=== PATIENT | female | born 1970 | race Caucasian/White ===

== ENCOUNTER → 2019-08-06 14:12 | Outpatient (CLI) | payer OTHER, SELFPAY ==
--- NOTE | ~2019-08-06 | CT_ITS ---
EXAMINATION: CT abdomen pelvis w con EXAM DATE: 08/06/2019 15:40 INDICATION: Low abdominal pain, alternating bowel habits. Periumbilical pain. Hysterectomy, appendect cuauhtemoc, cholecystectomy, gastric sleeve. TECHNIQUE: Spiral CT of the abdomen and pelvis was performed following intravenous injection of 100 m L Omnipaque 350. Axial, coronal and sagittal images were reviewed. The dose-length product (DLP) fo r this examination was 689.25 mGy-cm. The exposure was tailored according to patient size (auto mA e xposure control), and iterative reconstruction (ASIR) was used as additional dose reduction technique . Comparison is made to prior examination from 05/07/2019. FINDINGS: The liver, spleen, adrenal glands and pancreas are unremarkable. Gallbladder is unremarkab le. Portal and splenic veins are patent. Kidneys enhance symmetrically. There is no hydronephrosi s. The uterus is not identified and has likely been surgically resected. The bladder is unremarkab le. There is no retroperitoneal or pelvic lymphadenopathy. There are surgical changes consistent with appendectomy. There are surgical changes consistent with gastric sleeve procedure. There is expected amount of colonic stool. No free intraperitoneal gas. The heart is normal in size. There are no pericardial or pleural effusions. The lung bases are u nremarkable. The bones are unremarkable. IMPRESSION: 1. No acute intra-abdominal findings. 2. Surgical changes. Reviewed, dictated and finalized at location A. CARRIER TECHNICIAN
--- NOTE | ~2019-08-06 | US_ITS ---
US thyroid INDICATION: Thyroid enlargement TECHNIQUE: Real-time sonographic images of the thyroid gland were obtained. COMPARISON: No prior studies for comparison. FINDINGS: The right thyroid lobe measures 3.2 x 1.1 x 1.1 cm. The left thyroid lobe measures 2.7 x 1 x 0.9 cm. There is normal echotexture and echogenicity throughout the thyroid gland. No discrete nod ules identified. Normal vascular flow is present. IMPRESSION: 1. Mildly atrophic thyroid gland without discrete mass. Reviewed, dictated and finalized at location B. HIC USER INTERFACE DESIGNER
== END ==
PROVIDERS: Visit Provider Nurse Practitioner
DX: E04.9 Nontoxic goiter, unspecified (principal)
CPT/HCPCS: 74177; 76536; Q9967

== ENCOUNTER → 2019-08-26 15:14 | Outpatient (CLI) | payer OTHER, SELFPAY ==
--- NOTE | ~2019-08-26 | US_ITS ---
EXAMINATION: US soft tissue head and neck INDICATION: Localized swelling, mass, and lump of the right neck TECHNIQUE: Targeted ultrasound of the right neck was performed. COMPARISON: None FINDINGS: There are multiple benign-appearing lymph nodes of the right neck in the area of palpable c oncern. No suspicious cystic or solid mass is identified. IMPRESSION: 1. Benign-appearing right neck lymph nodes without suspicious or solid mass identified. Reviewed, dictated and finalized at location B. IMPRESSION: 1. Benign-appearing right neck lymph nodes without suspicious or solid mass kayce ntified.
== END ==
PROVIDERS: Visit Provider Family Medicine
DX: R22.1 Localized swelling, mass and lump, neck (principal)
CPT/HCPCS: 76536

== ENCOUNTER 2019-10-13 15:02 | Outpatient (CLI) | payer OTHER, MEDICARE, SELFPAY | END 2019-10-13 15:03 | disposition home or self-care (01) | LOC: ANHIMG 10-31 15:03 | PROVIDERS: PCP Family Medicine; Visit Provider Family Medicine | DX: Z53.8 Procedure and treatment not carried out for other reasons (principal) | CPT/HCPCS: 36415 ==

== ENCOUNTER 2019-10-17 02:07 | Emergency (ER) | payer MEDICARE, OTHER, SELFPAY ==
--- NOTE | ~2019-10-17 | CT_ITS ---
EXAMINATION: CTA chest PE protocol DATE: 10/17/2019 05:15 INDICATION: Chest pain. TECHNIQUE: Computed tomography angiography (CTA) of the chest was performed with 100 mL Omnipaque-350 intravenous contrast timed to evaluate the pulmonary arteries. Coronal maximum intensity projection 3D-reconstructions were created by the technologist. Automated exposure control and iterative reconst ruction technique were employed. The dose-length product was 316.16 mGy-cm. COMPARISON: Chest CT 09/26/2018 FINDINGS: The lungs demonstrate mild atelectasis. No pleural effusion. The heart size is normal. No p ericardial effusion. There is no pulmonary embolus. There are surgical changes of the stomach. There are changes of cholecystectomy. There is mild thoracic spondylosis. IMPRESSION: 1. No pulmonary embolus. Reviewed, dictated and finalized at location A. IMPRESSION: 1. No pulmonary embolus.
--- NOTE | 2019-10-17 02:17 | ECG_ITS ---
Measurements Intervals [place] Rate: 89 P: 55 FL: 143 QRS: 23 QRSD: 81 T: 12 QT: 355 QTc: 432 Interpretive Statements SINUS RHYTHM NONSPECIFIC T-WAVE ABNORMALITY- ANT/INF LEADS BORDERLINE ECG Electronically Signed On 10-17-2019 16:48:50 CDT by Jamar Villasenor D.O.
[2019-10-17 03:46] LABS: Basophils Absolute Auto 0.1 K/mm3 (0.0-0.1); Basophils Percent Auto 1.2 % (0.2-1.2); Eosinophils Absolute Auto 0.3 K/mm3 (0-0.3); Eosinophils Percent Auto 5.2 % (0-4.4); Hematocrit 38.1 % (37.0-47.0); Hemoglobin 12.8 g/dL (12.0-15.0); INR 0.8; Immature Granulocyte Absolute 0.02 K/mm3 (0.00-0.031); Immature Granulocyte Percent A 0.3 % (0-0.5); Lymphocytes Absolute Auto 3.39 K/mm3 (0.9-3.2); Lymphocytes Percent Auto 56.5 % (18.3-44.2); Mean Corpuscular HGB Conc 33.6 g/dl (32-36); Mean Corpuscular Hemoglobin 29.3 pg (26-34); Mean Corpuscular Volume 87.2 fl (80-100); Mean Platelet Volume 9.7 fl (7.4-10.4); Monocytes Absolute Auto 0.6 K/mm3 (0.1-0.6); Monocytes Percent Auto 9.8 % (2.6-8.5); Neutrophils Absolute Auto 1.6 K/mm3 (1.3-6.7); Partial Thromboplastin Time 27.1 SECONDS (22.3-36.8); Platelet Count Result 281 k/mm3 (150-375); Prothrombin Time 10.8 Seconds (11.1-14.7); Red Blood Count 4.37 M/mm3 (4.2-5.4); Red Cell Distribution Width 12.4 % (11.5-14.5)
[2019-10-17 03:55] LABS: Blood Urea Nitrogen 6 mg/dL (7-17); Calcium 8.9 mg/dL (8.4-10.2); Carbon Dioxide 24 mmol/L (22-30); Chloride 108 mmol/L (98-107); Estimated Glomerular Filt Rate > 60; Glucose 123 mg/dL (65-105); Potassium 3.7 mmol/L (3.4-5.0); Sodium 139 mmol/L (137-145)
--- NOTE | 2019-10-17 03:56 | ED.CHESTPAIN ---
HPI - Chest Pain General Chief Complaint: Shortness of Breath/Dyspnea Stated Complaint: Chest pain Time Seen by Provider: 10/17/19 03:51 History of Present Illness HPI narrative: Patient is a 48-year-old female who presents ER with chest pain and some shortness of breath. Patient reports chest pain center of her chest. Mildly reproduced with palpation of the sternum. Patient reports pain started this evening. Sharp and nonradiating. No runny nose/sore throat/cough/fever. Patient has history of PE and is not on anticoagulation. Recently had a lymph node dissection of the right neck that revealed a benign lymph node pathology. No new lower extremity swelling. Related Data Allergies Allergy/AdvReac Type Severity Reaction Status Date / Time dihydroergotamine Allergy Unknown N/V Verified 09/26/18 17:56 ketorolac Allergy Unknown rash Verified 04/11/16 15:55 levofloxacin Allergy Unknown nausea, Verified 04/11/16 15:57 vomiting KETOROLAC TROMETHAMINE Allergy Severe RASH Uncoded 09/26/18 17:56 Review of Systems Review of Systems: All systems reviewed & are unremarkable except as noted in HPI and below Constitutional: Constitutional: Denies chills, Reports fatigue, Denies fever(s) and Reports weakness ENT: Denies nasal congestion and Denies sore throat Cardiovascular: Cardiovascular: Reports chest pain and Denies radiating jaw, neck or arm pain Respiratory: Respiratory: Denies cough, Reports dyspnea and Denies wheezing Gastrointestinal: Gastrointestinal: Denies abdominal pain, Denies diarrhea, Denies nausea and Denies vomiting PMFSH Past Medical History Medical History (Updated 10/17/19 @ 04:40 by Hayder Friend MD) Fibromyalgia Aki's thyroiditis Hyperlipidemia Hypothyroidism Lupus Pulmonary embolism Rheumatoid arthritis Surgical History Surgical History (Updated 10/17/19 @ 04:00 by Hayder Friend MD) History of appendectomy History of cholecystectomy History of tonsillectomy Previous back surgery Family History Family History (Updated 04/12/16 @ 10:24 by DOCTOR UNKNOWN) Mother Family history of thyroid disease Social History Social History Smoking status: Never smoker Alcohol intake: current Exam Narrative: Exam Narrative: GENERAL: Well-appearing, well-nourished, and in no acute distress. HEAD: Normocephalic, atraumatic. Neck: Supple. Scar right neck were lymph nodes dissected. Palpable seroma is nontender. CHEST: Clear to auscultation. No respiratory distress. Tender palpation over anterior chest wall centrally. HEART: Regular rate and rhythm. Normal peripheral pulses. ABDOMEN: Soft, nontender, nondistended. EXTREMITIES: Normal range of motion. No edema. SKIN: Warm, dry, no rash. NEURO: Alert and oriented x3. PSYCH: Normal mood and affect. Course Course Emergency Course: Patient informed of results. Symptoms likely related to anxiety and chest wall pain. Discharge home. MDM - Chest Pain Lab Data Labs: Labs performed during ED downtime. Normal PT and PTT. BMP normal. CBC with normal white blood cell count of 6, hemoglobin of 12.8 and hematocrit of 38.1 and a platelet count of 281,000. Imaging Data Radiologist's impression: CTA of the chest: No pulmonary embolism. ECG Data EKG #1: ECG completion date: 10/17/19 ECG completion time: 02:17 EKG Interpretation: normal rate (89), sinus rhythm, no ectopy, non-specific ST changes, normal QRS, normal QT and NL axis Discharge Plan Discharge Clinical Impression: Anterior chest wall pain Patient Disposition: Home, Self-Care Condition: Stable Instructions: Chest Wall Pain (ED) Additional Instructions: Return to the ER if he cannot keep down food or water, you have fever over 100.4 ?F, you have chest pain with activity, you have additional concerns. The CT scan of your chest did not reveal any pulmonary emboli. Take Tylenol as needed for pain. Follow-up/Referrals: Shelli,Suzanne Mckee
[2019-10-17 05:00] VITALS: BP 127/69; PULSE 77; RESP 22; O2SAT 97
--- NOTE | 2019-10-17 05:04 | PC.NURSE ---
iv removed, wnl
== END 2019-10-17 04:45 | disposition home or self-care (01) ==
PROVIDERS: Emergency Provider Emergency Medicine; PCP Family Medicine
DX: R07.89 Other chest pain (principal); M79.7 Fibromyalgia; E06.3 Autoimmune thyroiditis; E78.5 Hyperlipidemia, unspecified; E03.9 Hypothyroidism, unspecified; Z86.711 Personal history of pulmonary embolism; M06.9 Rheumatoid arthritis, unspecified; R94.31 Abnormal electrocardiogram [ECG] [EKG]
CPT/HCPCS: 36415; 71275; 80048; 85025; 85610; 85730; 93005; 99284; Q9967

== ENCOUNTER 2020-04-24 06:59 | Emergency (ER) | payer MEDICARE, BC, SELFPAY ==
[2020-04-24 07:04] VITALS: BP 143/94; PULSE 80; RESP 18; TEMP 36.8; O2SAT 96
--- NOTE | 2020-04-24 08:21 | ED.BACK ---
HPI - Back Pain/Injury General Chief Complaint: Extremity Injury, Lower Stated Complaint: covid +, lower back pain, shooting into leg Time Seen by Provider: 04/24/20 07:30 Source: patient Mode of arrival: ambulatory Limitations: no limitations History of Present Illness HPI Narrative: This patient is a 49 year old female who presents for evaluation of low back pain. She reports she was diagnosed with COVID on after having sinus congestion with cough for 1 week. She reports later that night she developed lower back pain. This pain has been constant and she reports her pain radiates to bilateral legs. She has associated nausea due to her severe pain. She takes Dilaudid 4 mg as needed 4 times a day for her fibromyalgia, lupus and RA. She last took her Dilaudid yesterday morning. She denies dysuria , urinary hesitancy or hematuria. She reports she did have an episode of vomiting and diarrhea. She denies fever or chills. Related Data Allergies Allergy/AdvReac Type Severity Reaction Status Date / Time dihydroergotamine Allergy Unknown N/V Verified 09/26/18 17:56 ketorolac Allergy Unknown rash Verified 04/11/16 15:55 levofloxacin Allergy Unknown nausea, Verified 04/11/16 15:57 vomiting KETOROLAC TROMETHAMINE Allergy Severe RASH Uncoded 09/26/18 17:56 Review of Systems Review of Systems: All systems reviewed & are unremarkable except as noted in HPI and below Constitutional: Constitutional: Denies chills and Denies fever(s) Cardiovascular: Cardiovascular: Denies chest pain Respiratory: Respiratory: Reports cough and Denies dyspnea Gastrointestinal: Gastrointestinal: Denies abdominal pain, Reports nausea and Denies vomiting Genitourinary: Genitourinary: Denies hematuria and Denies dysuria Musculoskeletal: Musculoskeletal: Reports back pain Neurologic: Denies focal weakness, Denies numbness and Denies weakness PMFSH Past Medical History Medical History Fibromyalgia Aki's thyroiditis Hyperlipidemia Hypothyroidism Lupus Pulmonary embolism Rheumatoid arthritis Surgical History Surgical History History of appendectomy History of cholecystectomy History of tonsillectomy Previous back surgery Family History Family History (Updated 04/12/16 @ 10:24 by DOCTOR UNKNOWN) Mother Family history of thyroid disease Social History Social History Smoking status: Never smoker Alcohol intake: current Exam Const: General: alert Orientation/consciousness: patient oriented x3 Other: patient walking around room, crying HENMT: Head: normocephalic and atraumatic Face and sinus: face symmetric Mouth: Yes Normal oral and palatal mucosa present, Yes lip normal, Yes oropharynx normal and Yes moist mucous membranes Throat: posterior oropharynx normal, tonsils normal and uvula midline Eyes: EOM: EOMs intact bilaterally Resp: Effort & Inspection: normal respiratory effort and no retractions Auscultation: clear to auscultation bilaterally Cardio: Rate: regular rate Rhythm: regular rhythm Heart sounds: no murmurs GI: GI Palp: Yes Soft to palpation, No Tenderness to palpation present (GI), No Guarding due to palpation present (GI) and No Rigid due to palpation Auscultation: normal bowel sounds Back/Spine/Pelvis: Back: no CVA tenderness, No mass and No warmth Skin: General skin exam: normal color Rashes: no rashes Neuro: General: patient oriented x3, moves all extremities, no meningeal signs, no focal motor deficits and CN's II-XI intact bilaterally Speech: normal speech Gait exam (Neuro): Normal gait present Extrem: General: normal to inspection Course Reevaluation(s) Reevaluation #1: PAtiient is now sitting in bed. She states she feels much better and her pain is gone. I discussed labs with patient. She has mild leukopenia likely due to coivd. Urine is negative. She has
[2020-04-24] MEDS: LACTATED RINGERS 1,000 ML 999 ML IV CONT (08:37)
[2020-04-24] MEDS: HYDROmorphone HCL INJ (*CRX) 1 MG/ML SYR 2 MG IV PUSH (08:40)
[2020-04-24] MEDS: ONDANSETRON INJ 4 MG/2 ML VIAL IV PUSH (08:41)
[2020-04-24] MEDS: PANTOPRAZOLE SODIUM IV 40 MG VIAL IV PUSH (08:41)
[2020-04-24 08:49] LABS: Basophils Percent Auto 0.3 % (0.2-1.2); Eosinophils Percent Auto 0.3 % (0-4.4); Hematocrit 41.9 % (37.0-47.0); Hemoglobin 13.8 g/dL (12.0-15.0); Immature Granulocyte Absolute 0.01 K/mm3 (0.00-0.031); Immature Granulocyte Percent A 0.3 % (0-0.5); Lymphocytes Percent Auto 33.4 % (18.3-44.2); Mean Corpuscular HGB Conc 32.9 g/dl (32-36); Mean Corpuscular Hemoglobin 29.6 pg (26-34); Mean Corpuscular Volume 89.7 fl (80-100); Mean Platelet Volume 9.6 fl (7.4-10.4); Monocytes Absolute Auto 0.6 K/mm3 (0.1-0.6); Monocytes Percent Auto 16.4 % (2.6-8.5); Neutrophils Absolute Auto 1.8 K/mm3 (1.3-6.7); Neutrophils Percent Auto 49.3 % (45.5-73.1); Platelet Count Result 181 k/mm3 (150-375); Red Blood Count 4.67 M/mm3 (4.2-5.4); Red Cell Distribution Width 13.9 % (11.5-14.5); White Blood Count 3.6 K/mm3 (4.5-10.0)
[2020-04-24 09:02] LABS: Alanine Aminotransferase 22 U/L (4-35); Albumin Level 4.8 g/dL (3.5-5.1); Alkaline Phosphatase 56 U/L (38-126); Anion Gap 9 mmol/L (8-16); Aspartate Amino Transferase 35 U/L (14-36); Bilirubin,Total 0.3 mg/dL (0.2-1.3); Blood Urea Nitrogen 12 mg/dL (7-17); Calcium 9.1 mg/dL (8.4-10.2); Carbon Dioxide 30 mmol/L (22-30); Chloride 102 mmol/L (98-107); Estimated Glomerular Filt Rate > 60; Glucose 118 mg/dL (65-105); Potassium 3.3 mmol/L (3.4-5.0); Sodium 141 mmol/L (137-145)
[2020-04-24 09:15] VITALS: BP 142/74; PULSE 75; RESP 12; O2SAT 99
[2020-04-24 09:17] LABS: Add Urine Microscopic? YES; Amorphous Sediment Urine Moderate; Appearance Urine Turbid (Clear); Bilirubin Urine Negative (Negative); Blood Urine Negative (Negative); Color Urine Yellow (Yellow); Glucose Urine UA Negative (Negative); Ketones Urine Trace mg/dL (Negative); Leukocyte Esterase Ur Negative LEU/UL (Negative); Mucus Urine Rare /lpf; Nitrate Urine Negative (Negative); Protein Urine 1+ mg/dL (Negative); Specific Grav Ur 1.025 (1.001-1.035); Urobilinogen Urine Negative mg/dL (<2.0)
[2020-04-24 10:15] VITALS: BP 137/80; PULSE 80; RESP 12; O2SAT 100
== END 2020-04-24 10:45 | disposition home or self-care (01) ==
PROVIDERS: Emergency Provider General Practice; PCP Family Medicine
DX: M54.5 Low back pain (principal); U07.1 COVID-19; M79.7 Fibromyalgia; M06.9 Rheumatoid arthritis, unspecified; E06.3 Autoimmune thyroiditis; E78.5 Hyperlipidemia, unspecified; Z86.711 Personal history of pulmonary embolism
CPT/HCPCS: 36415; 80053; 81001; 85025; 96361; 96374; 96375; 99284; C9113; J1170; J2405; J7120

== ENCOUNTER 2020-09-14 16:44 | Emergency (ER) | payer BC, MEDICARE, SELFPAY ==
--- NOTE | ~2020-09-14 | XR_ITS ---
EXAMINATION: XR chest 2V DATE: 09/14/2020 17:27 INDICATION: Midsternal chest pain. TECHNIQUE: Frontal and lateral views of the chest were obtained. COMPARISON: Chest 2 views 09/26/2018 FINDINGS: The chest demonstrates clear lungs without pneumonia, pleural effusion, or pneumothorax. Th e heart size is normal. Surgical clips in the right upper quadrant are likely from cholecystectomy. IMPRESSION: 1. No acute cardiopulmonary disease. Reviewed, dictated and finalized at location A.
--- NOTE | ~2020-09-14 | CT_ITS ---
EXAMINATION: CTA chest PE protocol DATE: 09/14/2020 23:54 INDICATION: Chest pain TECHNIQUE: Computed tomography angiography (CTA) of the chest was performed with 100 mL Omnipaque-350 intravenous contrast timed to evaluate the pulmonary arteries. Coronal maximum intensity projection 3D-reconstructions were created by the technologist. Automated exposure control and iterative reconst ruction technique were employed. Exam dose: 288.73 mGy-cm total exam DLP. COMPARISON: 09/14/2020 2 view chest, showing no acute cardiac pulmonary disease 10/17/2019 CT pulmonary scan; no pulmonary embolus was reported FINDINGS: There is diagnostic contrast enhancement of the pulmonary arteries and no evidence of pulmo nary embolism. No evidence of thoracic aortic aneurysm. Normal heart size. No hilar or mediastinal mass lesion or lymphadenopathy. No pulmonary infiltrate or consolidation or pulmonary mass lesion is evident. Normal morphology of the adrenal glands. Status post cholecystectomy. Postoperative changes of the stomach. No suspicious osteolytic or osteoblastic lesions. There are degenerative changes of the thoracic and lumbar spine. IMPRESSION: No evidence of pulmonary embolism Reviewed, dictated and finalized at Location A. Reviewed, dictated and finalized at location A.
--- NOTE | 2020-09-14 16:48 | ECG_ITS ---
Measurements Intervals [place] Rate: 55 P: 60 MD: 159 QRS: 32 QRSD: 87 T: 49 QT: 419 QTc: 402 Interpretive Statements SINUS BRADYCARDIA NONSPECIFIC T-WAVE ABNORMALITY- DIFFUSE LEADS BORDERLINE ECG Electronically Signed On 09-14-2020 16:58:27 CDT by Jamar Villasenor D.O.
[2020-09-14 16:55] VITALS: BP 98/63; PULSE 66; RESP 18; TEMP 36.3; O2SAT 95
[2020-09-14 17:24] LABS: Basophils Absolute Auto 0.1 K/mm3 (0.0-0.1); Eosinophils Absolute Auto 0.1 K/mm3 (0-0.3); Eosinophils Percent Auto 1.9 % (0-4.4); Hematocrit 40.7 % (37.0-47.0); Hemoglobin 13.7 g/dL (12.0-15.0); Immature Granulocyte Absolute 0.01 K/mm3 (0.00-0.031); Immature Granulocyte Percent A 0.2 % (0-0.5); Lymphocytes Absolute Auto 2.74 K/mm3 (0.9-3.2); Lymphocytes Percent Auto 52.1 % (18.3-44.2); Mean Corpuscular HGB Conc 33.7 g/dl (32-36); Mean Corpuscular Volume 89.1 fl (80-100); Mean Platelet Volume 10.1 fl (7.4-10.4); Monocytes Absolute Auto 0.4 K/mm3 (0.1-0.6); Neutrophils Absolute Auto 1.9 K/mm3 (1.3-6.7); Neutrophils Percent Auto 36.8 % (45.5-73.1); Platelet Count Result 254 k/mm3 (150-375); Red Blood Count 4.57 M/mm3 (4.2-5.4); Red Cell Distribution Width 12.8 % (11.5-14.5); White Blood Count 5.3 K/mm3 (4.5-10.0)
[2020-09-14 17:29] LABS: Anion Gap 7 mmol/L (8-16); Blood Urea Nitrogen 11 mg/dL (7-17); Carbon Dioxide 23 mmol/L (22-30); Chloride 112 mmol/L (98-107); Estimated CRCL calculation 80 ml/min; Estimated Glomerular Filt Rate > 60; Glucose 90 mg/dL (65-105); Sodium 142 mmol/L (137-145)
[2020-09-14 17:41] LABS: Troponin I < 0.012 ng/mL (0.000-0.034)
[2020-09-14 18:29] LABS: INR 0.8; Prothrombin Time 11.9 Seconds (11.1-14.7)
[2020-09-14 18:30] LABS: Partial Thromboplastin Time 24.5 SECONDS (22.3-36.8)
[2020-09-14 19:00] VITALS: BP 90/53; PULSE 70; RESP 18; O2SAT 96
[2020-09-14 20:43] VITALS: BP 127/58; PULSE 58; RESP 14; O2SAT 100
--- NOTE | 2020-09-14 21:10 | ED.GENADULT ---
HPI - General Adult General Chief complaint: Chest Pain Stated complaint: chest tightness Time Seen by Provider: 09/14/20 20:48 Source: patient History of Present Illness HPI narrative: Patient is a 49 y/o female complaining of midsternal chest pain starting 5-6 hours ago. She describes her chest discomfort as pressure and something sitting her chest pain. She rates her discomfort as 7/10. There is no pain radiation. She also has some headache, dizziness and nausea. She states that her headache is similar to previous migraine. Related Data Allergies Allergy/AdvReac Type Severity Reaction Status Date / Time ketorolac [From Toradol] Allergy Hives Verified 09/14/20 20:52 levofloxacin AdvReac Nausea and Verified 09/14/20 20:52 Vomiting Review of Systems Constitutional: Constitutional: Denies chills, Denies fever(s), Reports headache(s) and Denies weakness Eyes: Eyes: Denies blurry vision ENT: Reports headache(s) and Denies neck pain Cardiovascular: Cardiovascular: Reports chest pain and Denies dyspnea Respiratory: Respiratory: Denies cough and Denies dyspnea Gastrointestinal: Gastrointestinal: Denies abdominal pain, Denies diarrhea, Reports nausea and Reports vomiting Genitourinary: Genitourinary: Denies hematuria and Denies dysuria Musculoskeletal: Musculoskeletal: Denies back pain and Denies neck pain Neurologic: Reports headache(s) and Denies weakness PMFSH Social History Social History Gender identity (if verbalized by the patient): Female Exam Const: General: no acute distress and well developed Orientation/consciousness: oriented to person, oriented to place, oriented to time and patient oriented x3 HENMT: Head: normocephalic Ears: external ears normal General nose exam: Normal external nose present Eyes: General: appearance normal, both eyes and all related structures Conjunctivae: conjunctivae normal Neck: Neck: normal visual inspection and full ROM Chest: Chest palpation & inspection: normal inspection of the chest and no tenderness Resp: Effort & Inspection: normal respiratory effort Auscultation: clear to auscultation bilaterally Cardio: Rate: regular rate Rhythm: regular rhythm GI: GI Palp: No abdominal tenderness and Yes Soft to palpation Skin: General skin exam: normal color and turgor normal Neuro: General: oriented to person, oriented to place, oriented to time and patient oriented x3 Cognition (Neuro): normal cognition Extrem: General: normal to inspection, full ROM and no pedal edema Psych: Appearance: grossly normal Mental Status: mental status grossly normal Affect: normal affect Course Vital Signs Vital signs: Vital Signs Temperature 36.3 C L 09/14/20 16:55 Pulse Rate 66 09/14/20 16:55 Respiratory Rate 18 09/14/20 16:55 Blood Pressure 98/63 L 09/14/20 16:55 Pulse Oximetry 95 09/14/20 16:55 Temperature 36.3 C L 09/14/20 16:55 Pulse Rate 78 09/15/20 00:50 Respiratory Rate 19 09/15/20 00:50 Blood Pressure 92/68 L 09/15/20 00:50 Pulse Oximetry 97 09/15/20 00:50 Medical Decision Making Vital Signs Vital Signs: Vital Signs Temperature 36.3 C L 09/14/20 16:55 Pulse Rate 66 09/14/20 16:55 Respiratory Rate 18 09/14/20 16:55 Blood Pressure 98/63 L 09/14/20 16:55 Pulse Oximetry 95 09/14/20 16:55 Temperature 36.3 C L 09/14/20 16:55 Pulse Rate 78 09/15/20 00:50 Respiratory Rate 19 09/15/20 00:50 Blood Pressure 92/68 L 09/15/20 00:50 Pulse Oximetry 97 09/15/20 00:50 Lab Data Result diagrams: 09/14/20 17:10 09/14/20 17:10 Labs: Lab Results 09/14/20 09/14/20 09/14/20 Range/Units 17:10 17:10 18:12 WBC 5.3 (4.5-10.0) K/mm3 RBC 4.57 (4.2-5.4) M/mm3 Hgb 13.7 (12.0-15.0) g/dL Hct 40.7 (37.0-47.0) % MCV 89.1 (80-100) fl MCH 30.0 (26-34) pg MCHC 33.7 (32-36) g/dl RDW 12.8 (11.5-14.5) % Plt Count 254 (150-375) k/mm3
[2020-09-14] MEDS: ONDANSETRON INJ 4 MG/2 ML VIAL IV PUSH (21:16)
[2020-09-14 21:30] VITALS: BP 110/65; PULSE 53; RESP 12; O2SAT 100
[2020-09-14 21:42] LABS: D Dimer 0.27 ug/mL (<0.48)
[2020-09-14 21:48] LABS: Troponin I < 0.012 ng/mL (0.000-0.034)
[2020-09-14 22:30] VITALS: BP 92/46; PULSE 46; RESP 19; O2SAT 99
--- NOTE | 2020-09-14 23:15 | PC.NURSE ---
Pt. states she had a complete hysterectomy.
[2020-09-14 23:30] VITALS: BP 126/76; PULSE 64; RESP 20; O2SAT 100
--- NOTE | 2020-09-14 23:30 | PC.NURSE ---
Pt. requesting morphine for her migraine. ERP notified. No further orders at this time.
--- NOTE | 2020-09-14 23:46 | PC.NURSE ---
Pt. to CT.
[2020-09-15 00:50] VITALS: BP 92/68; PULSE 78; RESP 19; O2SAT 97
== END 2020-09-15 00:50 | disposition home or self-care (01) ==
PROVIDERS: Emergency Medicine; Emergency Provider Emergency Medicine; PCP Family Medicine
DX: R07.2 Precordial pain (principal); R51.9 Headache, unspecified; R00.1 Bradycardia, unspecified; R94.31 Abnormal electrocardiogram [ECG] [EKG]
CPT/HCPCS: 36415; 71046; 71275; 80048; 84484; 85025; 85380; 85610; 85730; 93005; 96374; 99284; A9270; J2405; Q9967

== ENCOUNTER 2020-12-30 16:37 | Emergency (ER) | payer BC, MEDICARE, SELFPAY ==
--- NOTE | 2020-12-30 16:42 | ED.LOWEXIN ---
HPI - Extremity Injury (Lower) General Chief Complaint: Extremity Injury, Lower Stated Complaint: cramp in left calf Time Seen by Provider: 12/30/20 17:00 Source: patient and RN notes reviewed Mode of arrival: ambulatory Limitations: no limitations History of Present Illness HPI Narrative: 50-year-old female with history of lupus and RF presents with concern for left calf cramping that started 2 days ago. Reports she has a history of leg cramps however they usually do not last this long. Reports she also has a history of blood clots in her lungs. She does not take any blood thinner currently. She denies any difficulty breathing, shortness of breath, coughing. She denies any medical intervention, other than her daily pain meds for this cramping. She denies any injury or trauma, recent exercise. She denies any open skin, redness, swelling, warmth, fever. Reports cramping extends down to her dorsal foot. She denies claudication. MD complaint: other (Leg cramping) Related Data Home Medications Medication Instructions Recorded Confirmed adalimumab [Humira(CF) Pen] 40 mg SUBCUT DAILY 12/30/20 12/30/20 hydromorphone 4 mg PO PRN PRN 12/30/20 12/30/20 levothyroxine 112 mcg PO DAILY 12/30/20 12/30/20 methotrexate sodium 2.5 mg PO DAILY 12/30/20 12/30/20 omeprazole 20 mg PO DAILY 12/30/20 12/30/20 ondansetron HCl 4 mg PO PRN PRN 12/30/20 12/30/20 sertraline 50 mg PO DAILY 12/30/20 12/30/20 simvastatin 40 mg PO DAILY 12/30/20 12/30/20 temazepam 30 mg PO DAILY 12/30/20 12/30/20 topiramate 200 mg PO DAILY 12/30/20 12/30/20 Allergies Allergy/AdvReac Type Severity Reaction Status Date / Time dihydroergotamine Allergy Unknown N/V Verified 12/30/20 17:13 ketorolac [From Toradol] Allergy Hives Verified 12/30/20 17:13 levofloxacin AdvReac Nausea and Verified 12/30/20 17:13 Vomiting KETOROLAC TROMETHAMINE Allergy Severe RASH Uncoded 12/30/20 17:13 Review of Systems Review of Systems: CONSTITUTIONAL: Denies malaise, chills, sweats, or fever. CARDIOVASCULAR: Denies chest pain, palpitations, or edema. RESPIRATORY: Denies cough or dyspnea. SKIN: Denies lacerations, abrasions, wounds. Denies calf redness, warmth, swelling MUSCULOSKELETAL: Reports left leg cramp NEUROLOGIC: Denies numbness, weakness All systems reviewed & are unremarkable except as noted in HPI and below PMFSH Past Medical History Medical History (Updated 12/30/20 @ 17:12 by Bessy Hoang NP) Fibromyalgia Aki's thyroiditis Hyperlipidemia Hypothyroidism Lupus Pulmonary embolism Rheumatoid arthritis Surgical History Surgical History (Updated 09/15/20 @ 10:01 by Yessica Mendoza) History of appendectomy History of cholecystectomy History of tonsillectomy Previous back surgery Family History Family History (System 09/15/20 @ 10:01 by Yessica Mendoza) Mother Family history of thyroid disease Social History Social History (System 09/15/20 @ 10:01 by Yessica Mendoza) Smoking status: Never smoker Alcohol intake: current Gender identity (if verbalized by the patient): Female Comments At time of signature, agree with nursing past medical, surgical, social and family history. There is no relevant family history pertinent to the presenting complaint Exam Narrative: GENERAL: Well-appearing, well-nourished, and in no acute distress. HEAD: Normocephalic, atraumatic. EYES: PERRLA, conjunctivae clear ENT: Mucous membranes moist. NECK: Supple. CHEST: No respiratory distress. Speaks in full sentences. HEART: Regular rate and rhythm. EXTREMITIES: Bilateral lower extremities grossly normal range of motion, slight limp with the left lower leg. No edema. Grossly normal strength and sensation. Normal peripheral pulses. Left calf is 41 cm in diameter, right calf is 42 cm in diameter SKIN: Warm, dry, no rash. NEURO: Alert and oriented x3. PSYCH: Normal mood and affect Course Course Emergency Course: Discussed with patient limited diagno
[2020-12-30 17:06] VITALS: BP 110/73; PULSE 73; RESP 18; TEMP 36.6; O2SAT 96
[2020-12-30 17:19] VITALS: BP 110/73; PULSE 73; RESP 18; TEMP 36.6; O2SAT 96
== END 2020-12-30 17:25 | disposition home or self-care (01) ==
PROVIDERS: Emergency Provider Nurse Practitioner; PCP Family Medicine
DX: R25.2 Cramp and spasm (principal); M79.7 Fibromyalgia; E06.3 Autoimmune thyroiditis; E78.5 Hyperlipidemia, unspecified; E03.9 Hypothyroidism, unspecified; Z86.711 Personal history of pulmonary embolism; M06.9 Rheumatoid arthritis, unspecified; M32.9 Systemic lupus erythematosus, unspecified
CPT/HCPCS: 99213; G0463

== ENCOUNTER 2021-01-04 14:31 | Emergency (ER) | payer BC, MEDICARE, SELFPAY ==
--- NOTE | ~2021-01-04 | US_ITS ---
EXAMINATION: US venous doppler [facility] DATE: 01/04/2021 15:18 INDICATION: Left lower limb pain. TECHNIQUE: Grayscale ultrasound images without and with compression and Doppler ultrasound images of the left lower extremity veins were obtained. COMPARISON: Ultrasound 02/01/2018 FINDINGS: The visualized portions of left common femoral vein, profunda (deep) femoral vein, femoral vein, popl iteal vein, peroneal veins, posterior tibial veins, and greater saphenous vein outflow are patent. IMPRESSION: 1. No deep venous thrombosis. Reviewed, dictated and finalized at location A.
[2021-01-04 14:36] VITALS: BP 105/58; PULSE 99; RESP 18; TEMP 36.6; O2SAT 99
[2021-01-04 14:54] LABS: Basophils Absolute Auto 0.1 K/mm3 (0.0-0.1); Basophils Percent Auto 1.7 % (0.2-1.2); Eosinophils Absolute Auto 0.2 K/mm3 (0-0.3); Eosinophils Percent Auto 2.8 % (0-4.4); Hematocrit 44.4 % (37.0-47.0); Hemoglobin 14.5 g/dL (12.0-15.0); Immature Granulocyte Absolute 0.01 K/mm3 (0.00-0.031); Immature Granulocyte Percent A 0.2 % (0-0.5); Lymphocytes Absolute Auto 2.67 K/mm3 (0.9-3.2); Lymphocytes Percent Auto 49.4 % (18.3-44.2); Mean Corpuscular HGB Conc 32.7 g/dl (32-36); Mean Corpuscular Hemoglobin 30.8 pg (26-34); Mean Corpuscular Volume 94.3 fl (80-100); Mean Platelet Volume 9.5 fl (7.4-10.4); Monocytes Absolute Auto 0.5 K/mm3 (0.1-0.6); Monocytes Percent Auto 9.6 % (2.6-8.5); Neutrophils Percent Auto 36.3 % (45.5-73.1); Platelet Count Result 291 k/mm3 (150-375); Red Blood Count 4.71 M/mm3 (4.2-5.4); Red Cell Distribution Width 13.7 % (11.5-14.5); White Blood Count 5.4 K/mm3 (4.5-10.0)
[2021-01-04 15:05] LABS: Alanine Aminotransferase 16 U/L (4-35); Albumin Level 5.1 g/dL (3.5-5.1); Alkaline Phosphatase 56 U/L (38-126); Anion Gap 10 mmol/L (8-16); Aspartate Amino Transferase 28 U/L (14-36); Bilirubin,Total 0.4 mg/dL (0.2-1.3); Blood Urea Nitrogen 15 mg/dL (7-17); Calcium 9.7 mg/dL (8.4-10.2); Carbon Dioxide 26 mmol/L (22-30); Chloride 106 mmol/L (98-107); Estimated Glomerular Filt Rate > 60; Glucose 88 mg/dL (65-110); Potassium 3.9 mmol/L (3.4-5.0); Sodium 142 mmol/L (137-145)
[2021-01-04 16:36] VITALS: BP 110/73; PULSE 82; RESP 16; O2SAT 100
--- NOTE | 2021-01-04 17:02 | ED.LOWEXIN ---
HPI - Extremity Injury (Lower) General Chief Complaint: Extremity Injury, Lower Stated Complaint: Cramping L leg with bruising Time Seen by Provider: 01/04/21 16:34 Source: patient Mode of arrival: ambulatory Limitations: no limitations History of Present Illness HPI Narrative: This is a 50-year-old female that presents to the emergency department for left leg cramping x1 week. Reports intermittent calf cramping. Noted some bruising to the area. No known injury or trauma. Denies fever, erythema, edema, or numbness. Related Data Home Medications Medication Instructions Recorded Confirmed adalimumab [Humira(CF) Pen] 40 mg SUBCUT DAILY 12/30/20 12/30/20 hydromorphone 4 mg PO PRN PRN 12/30/20 12/30/20 levothyroxine 112 mcg PO DAILY 12/30/20 12/30/20 methotrexate sodium 2.5 mg PO DAILY 12/30/20 12/30/20 omeprazole 20 mg PO DAILY 12/30/20 12/30/20 ondansetron HCl 4 mg PO PRN PRN 12/30/20 12/30/20 sertraline 50 mg PO DAILY 12/30/20 12/30/20 simvastatin 40 mg PO DAILY 12/30/20 12/30/20 temazepam 30 mg PO DAILY 12/30/20 12/30/20 topiramate 200 mg PO DAILY 12/30/20 12/30/20 Allergies Allergy/AdvReac Type Severity Reaction Status Date / Time dihydroergotamine Allergy Unknown N/V Verified 01/04/21 14:40 ketorolac [From Toradol] Allergy Hives Verified 01/04/21 14:40 levofloxacin AdvReac Nausea and Verified 01/04/21 14:40 Vomiting KETOROLAC TROMETHAMINE Allergy Severe RASH Uncoded 01/04/21 14:40 Review of Systems Review of Systems: CONSTITUTIONAL: Denies fever SKIN: Denies rash MUSCULOSKELETAL: Reports myalgia. NEUROLOGIC: Denies numbness, or weakness. All systems reviewed & are unremarkable except as noted in HPI and below PMFSH Past Medical History Medical History (Updated 01/04/21 @ 17:52 by Courtney Villagomez PA-C) Fibromyalgia Aki's thyroiditis Hyperlipidemia Hypothyroidism Lupus Pulmonary embolism Rheumatoid arthritis Surgical History Surgical History (Updated 09/15/20 @ 10:01 by Yessica Mendoza) History of appendectomy History of cholecystectomy History of tonsillectomy Previous back surgery Family History Family History (System 09/15/20 @ 10:01 by Ysesica Mendoza) Mother Family history of thyroid disease Social History Social History (System 09/15/20 @ 10:01 by Yessica Mendoza) Smoking status: Never smoker Alcohol intake: current Gender identity (if verbalized by the patient): Female Exam Narrative: GENERAL: Well-appearing, well-nourished, and in no acute distress. HEAD: Normocephalic, atraumatic. EYES: EOMI. CHEST: Clear to auscultation. No respiratory distress. No wheezes rales or rhonchi HEART: Regular rate and rhythm. No murmur heard. Normal peripheral pulses. EXTREMITIES: Normal range of motion. No edema, erythema or warmth. Normal DP pulses. Normal sensation SKIN: Warm, dry, no rash. NEURO: No focal deficits. Alert and oriented x3. PSYCH: Normal mood and affect Course Vital Signs Vital signs: Vital Signs Temperature 97.8 F 01/04/21 14:36 Pulse Rate 99 01/04/21 14:36 Respiratory Rate 18 01/04/21 14:36 Blood Pressure 105/58 L 01/04/21 14:36 Pulse Oximetry 99 01/04/21 14:36 Temperature 97.8 F 01/04/21 14:36 Pulse Rate 82 01/04/21 16:36 Respiratory Rate 16 01/04/21 16:36 Blood Pressure 110/73 01/04/21 16:36 Pulse Oximetry 100 01/04/21 16:36 MDM - Extremity Injury (Lower) MDM Narrative Medical decision making narrative: Patient presents the emergency department for left calf cramping noted over the last week. She is afebrile and nontoxic-appearing. No erythema or edema of the leg. She is neurovascularly intact. No known injury or trauma. CBC and metabolic panel without concerning findings. Left lower extremity venous Doppler is without evidence of DVT. Patient was updated on case findings. She is stable and felt appropriate for further outpatient evaluation. She is to follow-up with her primary car
[2021-01-04 17:34] LABS: Magnesium 2.3 mg/dL (1.6-2.3)
[2021-01-04 18:00] VITALS: BP 148/82; PULSE 69; RESP 18; O2SAT 97
== END 2021-01-04 18:02 | disposition home or self-care (01) ==
PROVIDERS: Nurse Practitioner; Physician Assistant; Emergency Provider Emergency Medicine; PCP Family Medicine
DX: R25.2 Cramp and spasm (principal); E03.9 Hypothyroidism, unspecified; E78.5 Hyperlipidemia, unspecified; M06.9 Rheumatoid arthritis, unspecified; M79.7 Fibromyalgia; M79.662 Pain in left lower leg
CPT/HCPCS: 36415; 80053; 83735; 85025; 93971; 99284

== ENCOUNTER 2021-07-29 15:37 | Outpatient (CLI) | payer BC, MEDICARE, SELFPAY ==
--- NOTE | ~2021-07-29 | US_ITS ---
EXAMINATION:US venous doppler LE LT INDICATION: TECHNIQUE: Multiple grayscale, color flow and Doppler images of the lower extremity deep venous syste ms were obtained and reviewed. COMPARISON: FINDINGS: The common femoral, superficial femoral and popliteal veins demonstrate normal respiratory variation, augmentation and compressibility. Color flow is also seen within the posterior tibial, pe roneal, greater saphenous and profunda veins. IMPRESSION: 1: No lower extremity deep venous thrombosis. Reviewed, dictated and finalized at location B. ASSAYER
== END 2021-07-29 15:38 | disposition home or self-care (01) ==
LOC: ANHIMG 15:42
PROVIDERS: PCP Family Medicine; Visit Provider Family Medicine
DX: M79.605 Pain in left leg (principal)
CPT/HCPCS: 93971

== ENCOUNTER → 2022-04-03 10:52 | Outpatient (CLI) | payer OTHER, MEDICARE, SELFPAY ==
--- NOTE | ~2022-04-03 | US_ITS ---
EXAMINATION: US thyroid DATE: 04/03/2022 11:17 INDICATION: Nontoxic goiter, unspecified. TECHNIQUE: Multiple ultrasound images of the thyroid were obtained. COMPARISON: None. FINDINGS: The right thyroid lobe measures 3.3 x 1.2 x 1.2 cm. The left thyroid lobe measures 3.0 x 0.8 x 0.9 c m. There is normal echotexture and echogenicity throughout the thyroid gland. No discrete nodules id entified. Normal vascular flow is present. IMPRESSION: 1. Normal thyroid. Reviewed, dictated and finalized at location A. IMPRESSION: 1. Normal thyroid.
== END ==
PROVIDERS: PCP Family Medicine; Visit Provider Internal Medicine Endocrinology, Diabetes & Metabolism
DX: E04.9 Nontoxic goiter, unspecified (principal)
CPT/HCPCS: 76536

== ENCOUNTER → 2022-04-21 10:57 | Outpatient (CLI) | payer BC, MEDICARE, SELFPAY ==
--- NOTE | ~2022-04-21 | XR_ITS ---
XR ankle RT 2V DATE: 04/21/2022 11:35 INDICATION: Right ankle pain. Multiple joint pain. TECHNIQUE: AP and lateral views COMPARISON: None FINDINGS: There is osteopenia. No fracture or dislocation of the ankle or disruption of the ankle mortise, periosteal reaction or park ne destruction. Plantar and posterior calcaneal enthesopathy without associated erosive change or periostitis. IMPRESSION: Osteopenia Plantar and posterior calcaneal enthesopathy Reviewed, dictated and finalized at location B. UREMENT DEPARTMENT CHIEF CLERK
--- NOTE | ~2022-04-21 | XR_ITS ---
XR foot RT 2V DATE: 04/21/2022 11:35 INDICATION: Right foot pain. Multiple joint pain. TECHNIQUE: AP and lateral views COMPARISON: None FINDINGS: Osteopenia. Mild plantar and posterior calcaneal enthesopathy without associated erosive change or periostitis. Mild osteoarthritic change at the first metatarsophalangeal and some interphalangeal joints No fracture or dislocation, periosteal reaction or bone destruction. IMPRESSION: Osteopenia Mild plantar and posterior calcaneal enthesopathy Mild osteoarthritis at the first metatarsophalangeal and multiple interphalangeal joints Reviewed, dictated and finalized at location B. CE EXECUTIVE IMPRESSION: Osteopenia Mild plantar and posterior calcaneal enthesopathy Mild osteoarthritis at the first metatarsophalangeal and multiple interphalange al joints
--- NOTE | ~2022-04-21 | XR_ITS ---
XR foot LT 2V DATE: 04/21/2022 11:35 INDICATION: Left foot pain. Multiple joint pain. TECHNIQUE: AP and lateral views COMPARISON: None FINDINGS: Osteopenia. Minimal plantar and mild posterior calcaneal enthesopathy. Mild osteoarthritic change at the first metatarsophalangeal and multiple interphalangeal joints. No fracture, dislocation, periosteal reaction or bone destruction. IMPRESSION: Osteopenia Calcaneal enthesopathy Mild osteoarthritic change at first metatarsophalangeal and some interphalangeal joints Reviewed, dictated and finalized at location B. PAY REPRESENTATIVE IMPRESSION: Osteopenia Calcaneal enthesopathy Mild osteoarthritic change at first metatarsophalangeal and some interphalangea l joints
--- NOTE | ~2022-04-21 | XR_ITS ---
XR sacroiliac joints min 3V DATE: 04/21/2022 11:35 INDICATION: Sacroiliac pain. Multiple joint pain. TECHNIQUE: AP and bilateral oblique views COMPARISON: None FINDINGS: There is degenerative disc disease at L4-5 and L5-S1. Normal alignment at the sacroiliac joints. No fracture or dislocation or significant degenerative tatiana nge or erosive change or ankylosis at the sacroiliac joints is noted. Osteopenia. IMPRESSION: Osteopenia Negative sacroiliac joints Degenerative disc disease at L4-5 and L5-S1 Reviewed, dictated and finalized at Location A. Reviewed, dictated and finalized at location B. RAL AGENT
--- NOTE | ~2022-04-21 | XR_ITS ---
XR wrist RT 2V DATE: 04/21/2022 11:35 INDICATION: Right wrist pain. Multiple joint pain. TECHNIQUE: AP and lateral views COMPARISON: None FINDINGS: Osteopenia. No fracture or dislocation, periosteal reaction or bone destruction. No erosive change or chondrocalc inosis. Minimal spurring at the first carpometacarpal joint. IMPRESSION: Minimal osteoarthrosis at the first carpometacarpal joint Osteopenia Reviewed, dictated and finalized at location B. ING ENGINEER
--- NOTE | ~2022-04-21 | XR_ITS ---
XR wrist LT 2V DATE: 04/21/2022 11:35 INDICATION: Left wrist pain. Multiple joint pain. TECHNIQUE: AP and lateral views COMPARISON: None FINDINGS: Osteopenia. No fracture or dislocation, periosteal reaction or bone destruction, erosive change or chondrocalcino sis. IMPRESSION: Osteopenia Reviewed, dictated and finalized at location B. I PUNCH OPERATOR IMPRESSION: Osteopenia
--- NOTE | ~2022-04-21 | XR_ITS ---
XR hand LT 2V DATE: 04/21/2022 11:35 INDICATION: Left hand pain. Multiple joint pain. TECHNIQUE: AP and lateral views COMPARISON: None FINDINGS: There is diffuse osteopenia. No fracture or dislocation, periosteal reaction or bone destruction. There is joint space narrowing at some interphalangeal joints consistent with osteoarthritis. No eros denise change or chondrocalcinosis. IMPRESSION: Osteopenia Mild osteoarthritis Reviewed, dictated and finalized at location B. TENANCE PIPEFITTER
--- NOTE | ~2022-04-21 | XR_ITS ---
XR ankle LT 2V DATE: 04/21/2022 11:35 INDICATION: Left ankle pain. Multiple joint pain. TECHNIQUE: AP and lateral views COMPARISON: None FINDINGS: Osteopenia. No fracture or dislocation of the ankle or disruption of the ankle mortise. No periosteal reaction or bone destruction. Tibiotalar joint space is well preserved. Mild plantar and mild posterior calcaneal enthesopathy without erosive change or periostitis. IMPRESSION: Osteopenia Plantar and posterior calcaneal enthesopathy Reviewed, dictated and finalized at location B. GRATED CIRCUIT IC LAYOUT DESIGNER
--- NOTE | ~2022-04-21 | XR_ITS ---
XR hand RT 2V DATE: 04/21/2022 11:35 INDICATION: Right hand pain. Multiple joint pain. TECHNIQUE: AP and lateral views COMPARISON: None FINDINGS: There is osteopenia. No fracture or dislocation, periosteal reaction or bone destruction. No erosive change or chondrocalc inosis. There is narrowing at the interphalangeal joints consistent with mild osteoarthritis. IMPRESSION: Osteopenia Mild osteoarthritis Reviewed, dictated and finalized at location B. R GENERATION PLANT OPERATOR
== END ==
PROVIDERS: PCP Family Medicine; Visit Provider Nurse Practitioner Family
DX: R53.81 Other malaise (principal); M79.10 Myalgia, unspecified site; M19.041 Primary osteoarthritis, right hand; M19.042 Primary osteoarthritis, left hand; M85.841 Other specified disorders of bone density and structure, right hand; M85.842 Other specified disorders of bone density and structure, left hand; M85.872 Other specified disorders of bone density and structure, left ankle and foot; M19.072 Primary osteoarthritis, left ankle and foot; M77.32 Calcaneal spur, left foot; M85.871 Other specified disorders of bone density and structure, right ankle and foot; M19.071 Primary osteoarthritis, right ankle and foot; M77.31 Calcaneal spur, right foot; M53.3 Sacrococcygeal disorders, not elsewhere classified; M51.36 Other intervertebral disc degeneration, lumbar region; M51.37 Other intervertebral disc degeneration, lumbosacral region; M85.832 Other specified disorders of bone density and structure, left forearm; M85.831 Other specified disorders of bone density and structure, right forearm
CPT/HCPCS: 72202; 73100; 73120; 73600; 73620

== ENCOUNTER 2022-07-08 13:42 | Emergency (ER) | payer BC, MEDICARE, SELFPAY ==
--- NOTE | ~2022-07-08 | XR_ITS ---
PA, oblique, and lateral views of the right second toe CLINICAL HISTORY: Pain FINDINGS: There is an oblique, intra-articular, minimally displaced fracture of the plantar aspect of the base of the second middle phalanx. No other fracture or dislocation seen. Joint spaces are prese rved. Soft tissues are unremarkable. IMPRESSION: Oblique, intra-articular, minimally displaced fracture at the plantar aspect of the base of the secon d middle phalanx. Reviewed, dictated and finalized at location M. ILLING DEPARTMENT SUPERVISOR IMPRESSION: Oblique, intra-articular, minimally displaced fracture at the plantar aspect of the base of the second middle phalanx.
[2022-07-08 13:53] VITALS: BP 139/63; PULSE 86; RESP 16; TEMP 36.2; O2SAT 99
--- NOTE | 2022-07-08 14:20 | ED.GENADULT ---
HPI - General Adult General Chief complaint: Extremity Injury, Lower Stated complaint: Toe Injury Source: patient Mode of arrival: ambulatory Limitations: no limitations History of Present Illness HPI narrative: Patient presents for evaluation of pain in the 2nd digit of the right foot for the last week. She indicates she dropped her cell phone on the affected digit when she was not wearing shoes. She noted bruising of the affected digit which migrated over to the 3rd digit. She suspected that her toe was fractured. She subsequently developed some numbness in the affected digit which concerned her. She came in to further investigate that. She does not provide me with a numerical rating to her pain but states she is now experiencing a shooting pain in the 2nd digit of the foot. She has underlying rheumatoid arthritis and lupus for which she takes methotrexate and Humira. She is also on hydromorphone for pain. She also has underlying fibromyalgia. Related Data Home Medications Medication Instructions Recorded Confirmed adalimumab 40 mg/0.4 mL 40 mg subcut WEEKLY 12/30/20 07/08/22 subcutaneous pen kit (Humira(CF) Pen) levothyroxine 112 mcg tablet 112 mcg PO DAILY 12/30/20 07/08/22 methotrexate sodium 2.5 mg tablet 25 mg PO WEEKLY 12/30/20 07/08/22 simvastatin 40 mg tablet 40 mg PO DAILY 12/30/20 07/08/22 temazepam 30 mg capsule 30 mg PO DAILY 12/30/20 07/08/22 topiramate 200 mg tablet 200 mg PO DAILY 12/30/20 07/08/22 cyanocobalamin (vitamin B-12) 1,000 mcg subcut WEEKLY 07/08/22 07/08/22 1,000 mcg/mL injection solution fluoxetine 20 mg capsule 20 mg PO DAILY 07/08/22 07/08/22 hydromorphone 4 mg tablet 4 mg PO Q4-6H PRN Pain 07/08/22 07/08/22 pantoprazole 40 mg tablet,delayed 40 mg PO DAILY 07/08/22 07/08/22 release Allergies Allergy/AdvReac Type Severity Reaction Status Date / Time ketorolac [From Toradol] Allergy Intermediate Hives Verified 07/08/22 14:05 dihydroergotamine Allergy Unknown N/V Verified 07/08/22 14:05 levofloxacin AdvReac Severe Nausea and Verified 07/08/22 14:05 Vomiting Review of Systems Review of Systems: CONSTITUTIONAL: Denies fever, chills, or sweats. EYES: Denies visual changes, redness, or discharge. ENT: Denies rhinorrhea, congestion, sore throat, or otalgia. CARDIOVASCULAR: Denies chest pain, palpitations, or edema. RESPIRATORY: Denies cough or dyspnea. GASTROINTESTINAL: Denies abdominal pain, nausea, vomiting, or diarrhea. GENITOURINARY: Denies dysuria or hematuria. SKIN: Denies rash or itching. MUSCULOSKELETAL: Reports pain in the 2nd digit of the right foot. NEUROLOGIC: Reports numbness in the 2nd digit of the right foot. Denies headache, numbness, dizziness, or weakness. PSYCHIATRIC: Denies anxiety or depression. [facility] Past Medical History Medical History Fibromyalgia Aki's thyroiditis Hyperlipidemia Hypothyroidism Lupus Pulmonary embolism Rheumatoid arthritis Surgical History Surgical History History of appendectomy History of cholecystectomy History of tonsillectomy Previous back surgery Family History Family History Mother Family history of thyroid disease Social History Social History Smoking status: Never smoker Alcohol intake: current Living arrangements: with family Gender identity (if verbalized by the patient): Female Sexual Orientation (if Verbalized by the Patient): Straight or Heterosexual Spiritual care concerns: No Exam Narrative: GENERAL: Well-appearing, well-nourished, and in no acute distress. HEAD: Normocephalic, atraumatic. EYES: PERRLA and EOMI. ENT: Nares clear, no rhinorrhea or epistaxis. Mucous membranes moist. Oropharynx without tonsillar hypertrophy exudate or other le
--- NOTE | 2022-07-08 14:30 | PC.NURSE ---
PT DECLINED ICE FOR COMFORT
== END 2022-07-08 14:49 | disposition home or self-care (01) ==
PROVIDERS: Emergency Provider Nurse Practitioner; PCP Family Medicine
DX: S92.521A Displaced fracture of middle phalanx of right lesser toe(s), initial encounter for closed fracture (principal); W20.8XXA Other cause of strike by thrown, projected or falling object, initial encounter; M79.7 Fibromyalgia; E06.3 Autoimmune thyroiditis; E78.5 Hyperlipidemia, unspecified; E03.9 Hypothyroidism, unspecified; M06.9 Rheumatoid arthritis, unspecified; Z86.711 Personal history of pulmonary embolism
CPT/HCPCS: 73660; 99214; G0463

== ENCOUNTER → 2022-09-13 11:52 | Outpatient (CLI) | payer BC, MEDICARE, SELFPAY ==
--- NOTE | ~2022-09-13 | US_ITS ---
US renal BI 09/13/2022 12:18 Procedure: Realtime transabdominal ultrasound of the kidneys and bladder. Indication: History of UTI. History of lupus. Comparison: No prior studies for comparison. Findings: Renal echotexture is normal bilaterally without hydronephrosis, contour deforming mass or r enal calculus. The right kidney measures 9.7 cm and left kidney measures 11.2 cm. Bladder within nor mal limits. Impression: 1: Unremarkable renal ultrasound. No stones, masses or hydronephrosis. Reviewed, dictated and finalized at location B. Impression: 1: Unremarkable renal ultrasound. No stones, masses or hydronephrosis.
== END ==
PROVIDERS: PCP Family Medicine; Visit Provider Nurse Practitioner
DX: Z87.440 Personal history of urinary (tract) infections (principal)
CPT/HCPCS: 76775

== ENCOUNTER 2022-09-13 11:56 | Outpatient (CLI) | payer BC, MEDICARE, SELFPAY ==
--- NOTE | ~2022-09-13 | MR_ITS ---
EXAMINATION: MR brain/brain stem wo/w con DATE: 09/13/2022 14:06 INDICATION: Persistent migraine with aura without cerebral infarction. TECHNIQUE: Magnetic resonance imaging (MRI) of the brain and brainstem was performed without and with 17 mL MultiHance intravenous contrast. COMPARISON: Brain MRI 05/26/2015 FINDINGS: There is no intracranial hemorrhage, acute infarction, or abnormal intracranial mass lesion . The ventricles are normal in size. The paranasal sinuses are clear. The orbits are normal. The mast oid air cells are normal. IMPRESSION: 1. Normal brain. Reviewed, dictated and finalized at location A. IMPRESSION: 1. Normal brain.
--- NOTE | ~2022-09-13 | MR_ITS ---
EXAMINATION: MRA brain wo con DATE: 09/13/2022 14:05 INDICATION: Migraine headache. TECHNIQUE: Magnetic resonance angiography (MRA) of the brain was performed without intravenous contra st with T1-weighted SPGR by the 3D [id number] technique. Maximum intensity projection 3D-reconstr uctions were obtained. COMPARISON: MRA head 08/29/2013 FINDINGS: The region arteries are codominant. There is no significant stenosis of the basilar artery or posteri or cerebral arteries. There is no significant stenosis of the intracranial internal carotid arteries or anterior or middle cerebral arteries. Anterior communicating artery is normal. Posterior communica ting arteries are not identified. There is no aneurysm. IMPRESSION: 1. Normal head MRA. Reviewed, dictated and finalized at location A. IMPRESSION: 1. Normal head MRA.
--- NOTE | ~2022-09-13 | MR_ITS ---
EXAMINATION: MRA neck wo/w con DATE: 09/13/2022 14:07 INDICATION: Migraine headache with aura without cerebral infarctions. TECHNIQUE: Magnetic resonance angiography (MRA) of the neck was performed without and with 17 mL Mult iHance intravenous contrast. COMPARISON: Neck CT 04/14/2017 FINDINGS: There is no significant stenosis of the vertebral arteries. There is 0% stenosis of the proximal righ t internal carotid artery relative to normal distal artery lumen diameter (NASCET criteria). There i s 0% stenosis of the proximal left internal carotid artery relative to normal distal artery lumen osmar meter. IMPRESSION: 1. Normal neck MRA. Reviewed, dictated and finalized at location A. IMPRESSION: 1. Normal neck MRA.
== END 2022-09-13 11:57 ==
PROVIDERS: PCP Family Medicine
DX: G43.61 Persistent migraine aura with cerebral infarction, intractable (principal)
CPT/HCPCS: 70544; 70549; 70553; A9577

== ENCOUNTER 2022-11-25 15:06 | Emergency (ER) | payer BC, MEDICARE, SELFPAY ==
--- NOTE | ~2022-11-25 | XR_ITS ---
Right wrist Technique: PA, oblique, lateral, and ulnar deviation views were obtained. Clinical History: Injury Findings: No acute fracture or dislocation is seen. Osseous alignment is anatomic. Joint spaces are p reserved. Soft tissues are unremarkable. Impression: Unremarkable right wrist radiographs. Reviewed, dictated and finalized at location . Impression: Unremarkable right wrist radiographs.
[2022-11-25 15:19] VITALS: BP 102/70; PULSE 87; RESP 18; TEMP 36.6; O2SAT 96
[2022-11-25 15:38] VITALS: BP 102/70; PULSE 87; RESP 18; TEMP 36.6; O2SAT 96
--- NOTE | 2022-11-25 15:56 | ED.GENADULT ---
HPI - General Adult General Chief complaint: Extremity Injury, Upper Stated complaint: Fall Injury Right Wrist Source: patient Mode of arrival: ambulatory Limitations: no limitations History of Present Illness HPI narrative: Patient presents for evaluation of right wrist pain and swelling. Symptom onset just prior to arrival. She is jumping on a trampoline when she fell backwards and caught herself with her right hand beneath her. She did not hit her head. No LOC. She states pain in right wrist is 8/10 in severity. She is ambidextrous. She receives hydromorphone for chronic pain associated with rheumatoid arthritis, fibromyalgia, and SLE. Related Data Home Medications Medication Instructions Recorded Confirmed adalimumab 40 mg/0.4 mL 40 mg subcut WEEKLY 12/30/20 11/25/22 subcutaneous pen kit (Humira(CF) Pen) levothyroxine 112 mcg tablet 112 mcg PO DAILY 12/30/20 11/25/22 methotrexate sodium 2.5 mg tablet 25 mg PO WEEKLY 12/30/20 11/25/22 temazepam 30 mg capsule 30 mg PO DAILY 12/30/20 11/25/22 topiramate 200 mg tablet 200 mg PO DAILY 12/30/20 11/25/22 fluoxetine 20 mg capsule 20 mg PO DAILY 07/08/22 11/25/22 hydromorphone 4 mg tablet 4 mg PO Q4-6H PRN Pain 07/08/22 11/25/22 [id number]-[id number] 250 1 tablet PO Q4-6H PRN Migraine 10/24/22 11/25/22 mg-250 mg-65 mg tablet (Excedrin Headache Migraine) folic acid 1 mg tablet 5 mg PO DAILY 10/24/22 11/25/22 phentermine 15 mg capsule 15 mg PO DAILY 11/25/22 11/25/22 Allergies Allergy/AdvReac Type Severity Reaction Status Date / Time ketorolac [From Toradol] Allergy Intermediate Hives Verified 11/25/22 15:33 dihydroergotamine Allergy Unknown N/V Verified 11/25/22 15:33 levofloxacin AdvReac Severe Nausea and Verified 11/25/22 15:33 Vomiting Review of Systems Review of Systems: CONSTITUTIONAL: Denies fever, chills, or sweats. EYES: Denies visual changes, redness, or discharge. ENT: Denies rhinorrhea, congestion, sore throat, or otalgia. CARDIOVASCULAR: Denies chest pain, palpitations, or edema. RESPIRATORY: Denies cough or dyspnea. GASTROINTESTINAL: Denies abdominal pain, nausea, vomiting, or diarrhea. GENITOURINARY: Denies dysuria or hematuria. SKIN: Denies rash or itching. MUSCULOSKELETAL: Reports right wrist pain and swelling NEUROLOGIC: Denies headache, numbness, dizziness, or weakness. PSYCHIATRIC: Denies anxiety or depression. [facility] Past Medical History Medical History Cataract Fibromyalgia Aki's thyroiditis Hyperlipidemia Hypothyroidism Lupus Lymph node enlargement (09/29/19) lymp node removed Pulmonary embolism (~2012) Rheumatoid arthritis Surgical History Surgical History Delivery by section (~1991) primary breech H/O: hysterectomy (~2011) HYSTERECTOMY- endometriosis History of appendectomy History of cholecystectomy (~1996) History of orthopedic surgery (2009) shoulder History of orthopedic surgery (~2021) right shoulder repair History of right salpingo-oophorectomy (05/25/16) Laparoscopy, right salpingo-oophectomy, removal of pelvic floor implant, adhesiolysis - surface inclusions cysts History of tonsillectomy Previous back surgery 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) S/P left oophorectomy (~2011) BEHAVIORAL HEALTH SPECIALIST (ventriculoperitoneal) shunt status (~2000) peritoneal shunt placed 2000 / removed 2021 Family History Family History Mother Family history of thyroid disease Breast cancer Grandparent Cerebrovascular accident maternal grandmother Hypertension maternal grandmother Bone cancer maternal grandfather Other Hypertension maternal uncle Lupus erythematosus maternal aunt Sibling Family history of thyroid disease sister Vulva cancer, Onset Age: 47 sister gisele
== END 2022-11-25 15:53 | disposition home or self-care (01) ==
PROVIDERS: Emergency Provider Nurse Practitioner; PCP Family Medicine
DX: S63.501A Unspecified sprain of right wrist, initial encounter (principal); W19.XXXA Unspecified fall, initial encounter; Y93.44 Activity, trampolining; M79.7 Fibromyalgia; E06.3 Autoimmune thyroiditis; E78.5 Hyperlipidemia, unspecified; E03.9 Hypothyroidism, unspecified; Z86.711 Personal history of pulmonary embolism; M06.9 Rheumatoid arthritis, unspecified; M32.9 Systemic lupus erythematosus, unspecified; Z98.84 Bariatric surgery status
CPT/HCPCS: 73110; 99213; G0463

== ENCOUNTER 2023-01-14 18:27 | Emergency (ER) | payer BC, MEDICARE, SELFPAY ==
[2023-01-14 18:44] VITALS: BP 111/66; PULSE 93; RESP 20; TEMP 36.6; O2SAT 98
--- NOTE | 2023-01-14 19:03 | ED.GENADULT ---
HPI - General Adult General Chief complaint: Urogenital-Female Stated complaint: uti Source: patient Mode of arrival: ambulatory Limitations: no limitations History of Present Illness HPI narrative: Patient presents for evaluation of urinary symptoms. Symptom onset today. Symptoms include suprapubic discomfort, dysuria, urinary frequency and urgency. She denies any hematuria, vaginal bleeding or discharge. No fever, chills nausea, vomiting, low back pain. She has had recurrent urinary tract infections in the past and this feels similar. She took some Azo. She has been seeing a urologist and is planning on calling there tomorrow when they are back in the office Sunday. Related Data Home Medications Medication Instructions Recorded Confirmed adalimumab 40 mg/0.4 mL 40 mg subcut WEEKLY 12/30/20 11/25/22 subcutaneous pen kit (Humira(CF) Pen) levothyroxine 112 mcg tablet 112 mcg PO DAILY 12/30/20 11/25/22 methotrexate sodium 2.5 mg tablet 25 mg PO WEEKLY 12/30/20 11/25/22 temazepam 30 mg capsule 30 mg PO DAILY 12/30/20 11/25/22 topiramate 200 mg tablet 200 mg PO DAILY 12/30/20 11/25/22 fluoxetine 20 mg capsule 20 mg PO DAILY 07/08/22 11/25/22 hydromorphone 4 mg tablet 4 mg PO Q4-6H PRN Pain 07/08/22 11/25/22 zckcbhy-oikouquxzigyh-wusftgar 250 1 tablet PO Q4-6H PRN Migraine 10/24/22 11/25/22 mg-250 mg-65 mg tablet (Excedrin Headache Migraine) folic acid 1 mg tablet 5 mg PO DAILY 10/24/22 11/25/22 phentermine 15 mg capsule 15 mg PO DAILY 11/25/22 11/25/22 Allergies Allergy/AdvReac Type Severity Reaction Status Date / Time ketorolac [From Toradol] Allergy Intermediate Hives Verified 11/25/22 15:33 dihydroergotamine Allergy Unknown N/V Verified 11/25/22 15:33 levofloxacin AdvReac Severe Nausea and Verified 11/25/22 15:33 Vomiting Review of Systems Review of Systems: CONSTITUTIONAL: Denies fever, chills, or sweats. EYES: Denies visual changes, redness, or discharge. ENT: Denies rhinorrhea, congestion, sore throat, or otalgia. CARDIOVASCULAR: Denies chest pain, palpitations, or edema. RESPIRATORY: Denies cough or dyspnea. GASTROINTESTINAL: Denies abdominal pain, nausea, vomiting, or diarrhea. GENITOURINARY: Reports suprapubic discomfort, urinary frequency, dysuria, and urgency SKIN: Denies rash or itching. MUSCULOSKELETAL: Denies back pain, joint pain, or myalgia. NEUROLOGIC: Denies headache, numbness, dizziness, or weakness. PSYCHIATRIC: Denies anxiety or depression. [facility] Past Medical History Medical History Cataract Fibromyalgia Aki's thyroiditis Hyperlipidemia Hypothyroidism Lupus Lymph node enlargement (09/29/19) lymp node removed Pulmonary embolism (~2012) Rheumatoid arthritis Surgical History Surgical History Delivery by section (~1991) primary breech H/O: hysterectomy (~2011) HYSTERECTOMY- endometriosis History of appendectomy History of cholecystectomy (~1996) History of orthopedic surgery (2009) shoulder History of orthopedic surgery (~2021) right shoulder repair History of right salpingo-oophorectomy (05/25/16) Laparoscopy, right salpingo-oophectomy, removal of pelvic floor implant, adhesiolysis - surface inclusions cysts History of tonsillectomy Previous back surgery 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) S/P left oophorectomy (~2011) 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
== END 2023-01-14 19:07 | disposition home or self-care (01) ==
PROVIDERS: Emergency Provider Nurse Practitioner; PCP Family Medicine
DX: N30.00 Acute cystitis without hematuria (principal); M79.7 Fibromyalgia; E06.3 Autoimmune thyroiditis; E78.5 Hyperlipidemia, unspecified; E03.9 Hypothyroidism, unspecified; M06.9 Rheumatoid arthritis, unspecified; Z86.711 Personal history of pulmonary embolism; Z98.84 Bariatric surgery status
CPT/HCPCS: 81003; 87086; 87088; 99213; G0463

== ENCOUNTER 2023-03-16 21:28 | Emergency (ER) | payer BC, MEDICARE, SELFPAY ==
--- NOTE | ~2023-03-16 | CT_ITS ---
EXAMINATION: CT abdomen pelvis wo con DATE: 03/17/2023 05:36 INDICATION: Flank pain. Urinary tract infection. TECHNIQUE: Computed tomography (CT) of the abdomen and pelvis was performed without intravenous contr ast. Automated exposure control and iterative reconstruction technique were employed. The dose-length product was 544.44 mGy-cm. COMPARISON: CT abdomen and pelvis 08/06/2019 FINDINGS: The visualized portions of the lung bases demonstrate minimal atelectasis. No pleural effus ion. The heart size is normal. No pericardial effusion. There is mild intrahepatic biliary duct dilat ation, likely secondary to cholecystectomy. There are changes of gastric sleeve procedure. The spleen , pancreas, adrenal glands, and kidneys are normal. There is no urolithiasis. There is diverticulosis of the colon without evidence of diverticulitis. There are changes of appendectomy. There are no pat hologically enlarged lymph nodes. There is no free intraperitoneal fluid. There is mild thoracic spon dylosis and moderate lumbar spondylosis. IMPRESSION: 1. No urolithiasis. Reviewed, dictated and finalized at location E. IMPRESSION: 1. No urolithiasis.
[2023-03-16 21:42] VITALS: BP 110/62; PULSE 72; RESP 16; TEMP 37; O2SAT 99
[2023-03-16 22:00] LABS: Basophils Percent Auto 0.7 % (0.2-1.2); Eosinophils Absolute Auto 0.2 K/mm3 (0-0.3); Eosinophils Percent Auto 3.9 % (0-4.4); Hematocrit 37.4 % (37.0-47.0); Hemoglobin 12.2 g/dL (12.0-15.0); Immature Granulocyte Absolute 0.01 K/mm3 (0.00-0.031); Immature Granulocyte Percent A 0.2 % (0-0.5); Lymphocytes Absolute Auto 2.76 K/mm3 (0.9-3.2); Lymphocytes Percent Auto 49.2 % (18.3-44.2); Mean Corpuscular HGB Conc 32.6 g/dl (32-36); Mean Corpuscular Hemoglobin 30.1 pg (26-34); Mean Corpuscular Volume 92.3 fl (80-100); Mean Platelet Volume 9.6 fl (7.4-10.4); Monocytes Absolute Auto 0.6 K/mm3 (0.1-0.6); Monocytes Percent Auto 11.2 % (2.6-8.5); Neutrophils Percent Auto 34.8 % (45.5-73.1); Platelet Count Result 251 k/mm3 (150-375); Red Blood Count 4.05 M/mm3 (4.2-5.4); Red Cell Distribution Width 15.2 % (11.5-14.5); White Blood Count 5.6 K/mm3 (4.5-10.0)
[2023-03-16 22:12] LABS: Alanine Aminotransferase 23 U/L (6-35); Albumin Level 4.3 g/dL (3.5-5.1); Alkaline Phosphatase 43 U/L (38-126); Anion Gap 5 mmol/L (8-16); Aspartate Amino Transferase 38 U/L (14-36); Bilirubin,Total 0.4 mg/dL (0.2-1.3); Blood Urea Nitrogen 12 mg/dL (7-17); Calcium 9.2 mg/dL (8.4-10.2); Carbon Dioxide 24 mmol/L (22-30); Chloride 110 mmol/L (98-107); Estimated CRCL calculation 63 ml/min; Estimated Glomerular Filt Rate 58; Glucose 99 mg/dL (65-110); Lipase 84 U/L (23-300); Potassium 3.7 mmol/L (3.4-5.0); Sodium 139 mmol/L (137-145)
[2023-03-16 22:23] LABS: Appearance Urine Turbid (Clear); Bacteria Urine None Seen /hpf; Bilirubin Urine Negative (Negative); Blood Urine Trace (Negative); Color Urine Yellow (Yellow); Glucose Urine UA Negative (Negative); Ketones Urine Trace mg/dL (Negative); Leukocyte Esterase Ur 2+ LEU/UL (Negative); Nitrate Urine Negative (Negative); Non Pathogenic Casts 0-2; Protein Urine Trace mg/dL (Negative); RBC Urine 0-2 /hpf (0-2); Specific Grav Ur 1.026 (1.001-1.035); Squamous Epithelial Cell Urine Occasional /hpf (Few); WBC Urine >100 /hpf
[2023-03-16 22:25] LABS: Add Urine Microscopic? YES
[2023-03-17] VITALS (21 sets, daily range): BP systolic 91–105; BP diastolic 47–59; PULSE 60–68; RESP 17–20; TEMP 36.7; O2SAT 94–100
[2023-03-17] MEDS: SODIUM CHLORIDE 0.9% IV 1,000 ML 999 ML IV CONT (05:17)
[2023-03-17] MEDS: PROCHLORPERAZINE EDISYLATE 10 MG/2 ML VIAL IV PUSH (05:17)
[2023-03-17] MEDS: MORPHINE SULFATE (*CRX) 4 MG/ML INJ IV PUSH (05:17)
--- NOTE | 2023-03-17 06:06 | ED.GENADULT ---
HPI - General Adult General Chief complaint: Abdominal Pain Stated complaint: abdominal pain Time Seen by Provider: 03/17/23 04:39 History of Present Illness HPI narrative: Patient is a 52-year-old female who presents emergency department with chief complaint of abdominal pain patient states he is also had some diarrhea and constipation. Patient states that she has history of UTIs and also history of lupus. Patient reports symptoms or not improved by anything and reports they are not worse with anything. Related Data Home Medications Medication Instructions Recorded Confirmed adalimumab 40 mg/0.4 mL 40 mg subcut WEEKLY 12/30/20 11/25/22 subcutaneous pen kit (Humira(CF) Pen) levothyroxine 112 mcg tablet 112 mcg PO DAILY 12/30/20 11/25/22 methotrexate sodium 2.5 mg tablet 25 mg PO WEEKLY 12/30/20 11/25/22 temazepam 30 mg capsule 30 mg PO DAILY 12/30/20 11/25/22 topiramate 200 mg tablet 200 mg PO DAILY 12/30/20 11/25/22 fluoxetine 20 mg capsule 20 mg PO DAILY 07/08/22 11/25/22 hydromorphone 4 mg tablet 4 mg PO Q4-6H PRN Pain 07/08/22 11/25/22 ywwrcqo-yravnrceupfkp-ajxrphal 250 1 tablet PO Q4-6H PRN Migraine 10/24/22 11/25/22 mg-250 mg-65 mg tablet (Excedrin Headache Migraine) folic acid 1 mg tablet 5 mg PO DAILY 10/24/22 11/25/22 phentermine 15 mg capsule 15 mg PO DAILY 11/25/22 11/25/22 Allergies Allergy/AdvReac Type Severity Reaction Status Date / Time ketorolac [From Toradol] Allergy Intermediate Hives Verified 03/17/23 02:21 dihydroergotamine Allergy Unknown N/V Verified 03/17/23 02:21 levofloxacin AdvReac Severe Nausea and Verified 03/17/23 02:21 Vomiting Review of Systems Review of Systems: A 10 system review of systems was completed on the patient and is negative except for what is stated in the HPI. Nursing and ancillary documentation was reviewed. [facility] Past Medical History Medical History Cataract Fibromyalgia Aki's thyroiditis Hyperlipidemia Hypothyroidism Lupus Lymph node enlargement (09/29/19) lymp node removed Pulmonary embolism (~2012) Rheumatoid arthritis Surgical History Surgical History Delivery by section (~1991) primary breech H/O: hysterectomy (~2011) HYSTERECTOMY- endometriosis History of appendectomy History of cholecystectomy (~1996) History of orthopedic surgery (2009) shoulder History of orthopedic surgery (~2021) right shoulder repair History of right salpingo-oophorectomy (05/25/16) Laparoscopy, right salpingo-oophectomy, removal of pelvic floor implant, adhesiolysis - surface inclusions cysts History of tonsillectomy Previous back surgery 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) S/P left oophorectomy (~2011) 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 status (~2000) peritoneal shunt placed 2000 / 2021 Family History Family History Mother Family history of thyroid disease Breast cancer Grandparent Cerebrovascular accident maternal grandmother Hypertension maternal grandmother Bone cancer maternal grandfather Other Hypertension maternal uncle Lupus erythematosus maternal aunt Sibling Family history of thyroid disease sister Vulva cancer, Onset Age: 47 sister went to brain Brain cancer sister Daughter Family history of thyroid disease Social History Social History Smoking status: Never smoker Alcohol intake: current Alcohol use details: 1 x year Substance use: never Substance use type: does not use Living arrangements: other Additional living arrangements comments: Occupation/Education: unemployed Additional occupation/education comments: disabled Gender identity (if verbalized by the jose roberto
== END 2023-03-17 07:01 | disposition home or self-care (01) ==
PROVIDERS: Emergency Provider Emergency Medicine; PCP Family Medicine
DX: N39.0 Urinary tract infection, site not specified (principal); E06.3 Autoimmune thyroiditis; E03.9 Hypothyroidism, unspecified; E78.5 Hyperlipidemia, unspecified; M79.7 Fibromyalgia; Z86.711 Personal history of pulmonary embolism; M06.9 Rheumatoid arthritis, unspecified; Z98.84 Bariatric surgery status; Z79.82 Long term (current) use of aspirin; Z90.710 Acquired absence of both cervix and uterus; Z90.49 Acquired absence of other specified parts of digestive tract; Z90.79 Acquired absence of other genital organ(s); Z90.722 Acquired absence of ovaries, bilateral
CPT/HCPCS: 36415; 74176; 80053; 81001; 83690; 85025; 87086; 87088; 96361; 96365; 96375; 99284; J0696; J0780; J2270; J7030

== ENCOUNTER 2023-07-18 01:21 | Day surgery (SDC) | payer BC, MEDICARE, SELFPAY ==
[2023-06-25 13:17] VITALS: BMI 26.7
--- NOTE | 2023-07-16 11:25 | SUR.PREOP ---
Patient called regarding upcoming procedure. Reviewed preop instructions, appointment times, and procedure prep.
--- NOTE | 2023-07-17 14:27 | PM.HPGS ---
History of Present Illness History of Present Illness Consent: Risks, benefits, and alternatives have been discussed and questions answered. Patient agrees to proceed with procedure. Chief complaint: abdominal pain,constipation,change in bowel habits Narrative: Pretty Zarate is a 52 year old female with history of rheumatoid arthritis for which she is on Humira and methotrexate and who also has had a history of blood clots, migraines, gastric sleeve, hysterectomy, and several other operations. She has a history of gastric ulcers before she had a gastric sleeve procedure in 2016. Now she is having pain around the umbilicus that is at times a severe twisting. It will double her over. Also her bowels have changed in that she has become constipated lately she has seen some red blood her stools when straining. A CT scan done last fall was unremarkable except for diverticulosis. Review of Systems Review of Systems: All systems reviewed & are unremarkable except as noted in HPI and below PMFSH Past Medical History Medical History Bright red blood per rectum Cataract Change in bowel habits Constipation Fibromyalgia Aki's thyroiditis Hyperlipidemia Hypothyroidism Lupus Lymph node enlargement (09/29/19) lymp node removed Pulmonary embolism (~2012) Pulse visible in abdominal aorta Rheumatoid arthritis Surgical History Surgical History Delivery by section (~1991) primary breech H/O: hysterectomy (~2011) HYSTERECTOMY- endometriosis History of appendectomy History of cholecystectomy (~1996) History of orthopedic surgery (2009) shoulder History of orthopedic surgery (~2021) right shoulder repair History of right salpingo-oophorectomy (05/25/16) Laparoscopy, right salpingo-oophectomy, removal of pelvic floor implant, adhesiolysis - surface inclusions cysts History of tonsillectomy Previous back surgery 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) S/P left oophorectomy (~2011) 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 status (~2000) peritoneal shunt placed 2000 / removed 2021 Family History Family History Mother Family history of thyroid disease Breast cancer Grandparent Cerebrovascular accident maternal grandmother Hypertension maternal grandmother Bone cancer maternal grandfather Other Hypertension maternal uncle Lupus erythematosus maternal aunt Sibling Family history of thyroid disease sister Vulva cancer, Onset Age: 47 sister went to brain Brain cancer sister Daughter Family history of thyroid disease Social History Social History Smoking status: Never smoker Alcohol intake: current Alcohol use details: 2X yearly Substance use: never Substance use type: does not use Living arrangements: with family Additional living arrangements comments: Occupation/Education: unemployed Additional occupation/education comments: disabled Gender identity (if verbalized by the patient): Female Sexual Orientation (if Verbalized by the Patient): Straight or Heterosexual Spiritual care concerns: No Meds Home Medications and Allergies Home Medications Medication Instructions Recorded Confirmed Type adalimumab 40 mg/0.4 mL 40 mg subcut WEEKLY 12/30/20 07/18/23 History subcutaneous pen kit (Humira(CF) Pen) levothyroxine 112 mcg tablet 112 mcg PO DAILY 12/30/20 07/18/23 History methotrexate sodium 2.5 mg tablet 25 mg PO WEEKLY 12/30/20 07/18/23 History temazepam 30 mg capsule 30 mg PO HS 12/30/20 07/18/23 History topiramate 200 mg tablet 200 mg PO DAILY 12/30/20 07/18/23 History fluoxetine 20 mg capsule 20 mg PO DAILY 07/08/22 07/18/23 History hydromorphone 4 mg tablet 4 mg PO Q4-6H PRN Pain 07/08/22
[2023-07-18 10:40] VITALS: BP 116/64; PULSE 71; RESP 16; TEMP 36.1; O2SAT 98
--- NOTE | 2023-07-18 10:49 | WPDANESEPPF ---
Anes - Initial Pre Proc Eval Procedure: Operation Date: 07/18/23 11:30 Proposed Procedures p Esophagogastroduodenoscopy & Colonoscopy - Tobi Louie MD Date/Time: 07/18/23 10:49 Surgeon: Tobi Louie MD Pre Op Diagnosis: abdominal pain,constipation,change in bowel habits Patient Data Age: 52 Gender: F Height: 1.78 m Weight: 82.5 kg Last Vital Signs Temp 96.9 F L 07/18/23 10:40 Pulse 71 07/18/23 10:40 Resp 16 07/18/23 10:40 BP 116/64 07/18/23 10:40 Pulse Ox 98 07/18/23 10:40 O2 Del Method Room Air 07/18/23 10:40 Allergies Allergy/AdvReac Type Severity Reaction Status Date / Time ketorolac [From Toradol] Allergy Intermediate Hives Verified 07/18/23 10:35 dihydroergotamine Allergy Unknown N/V Verified 07/18/23 10:35 levofloxacin AdvReac Severe Nausea and Verified 07/18/23 10:35 Vomiting Home Medications Medication Instructions Recorded Confirmed Type adalimumab 40 mg/0.4 mL 40 mg subcut WEEKLY 12/30/20 07/18/23 History subcutaneous pen kit (Humira(CF) Pen) levothyroxine 112 mcg tablet 112 mcg PO DAILY 12/30/20 07/18/23 History methotrexate sodium 2.5 mg tablet 25 mg PO WEEKLY 12/30/20 07/18/23 History temazepam 30 mg capsule 30 mg PO HS 12/30/20 07/18/23 History topiramate 200 mg tablet 200 mg PO DAILY 12/30/20 07/18/23 History fluoxetine 20 mg capsule 20 mg PO DAILY 07/08/22 07/18/23 History hydromorphone 4 mg tablet 4 mg PO Q4-6H PRN Pain 07/08/22 07/18/23 History folic acid 1 mg tablet 5 mg PO DAILY 10/24/22 07/18/23 History ondansetron HCl 4 mg tablet 4 mg PO Q4-6H PRN Nausea 06/25/23 07/18/23 History simvastatin 40 mg tablet 40 mg PO DAILY 06/25/23 07/18/23 History sumatriptan succinate 4 mg/0.5 mL 4 mg subcut DIRECTED PRN 06/25/23 07/18/23 History subcutaneous cartridge (refill) Migraine Headache Patient hx anesthesia problems: none Family hx anesthesia problems: none Results Review: All pre-operative results and documents have been reviewed as part of the pre-operative evaluation. [facility] Past Medical History Medical History (Updated 06/13/23 @ 12:49 by Allison Mckeon, HAND PROFILER) Bright red blood per rectum Cataract Change in bowel habits Constipation Fibromyalgia Aki's thyroiditis Hyperlipidemia Hypothyroidism Lupus Lymph node enlargement (09/29/19) lymp node removed Pulmonary embolism (~2012) Pulse visible in abdominal aorta Rheumatoid arthritis Surgical History Surgical History Delivery by section (~1991) primary breech H/O: hysterectomy (~2011) HYSTERECTOMY- endometriosis History of appendectomy History of cholecystectomy (~1996) History of orthopedic surgery (2009) shoulder History of orthopedic surgery (~2021) right shoulder repair History of right salpingo-oophorectomy (05/25/16) Laparoscopy, right salpingo-oophectomy, removal of pelvic floor implant, adhesiolysis - surface inclusions cysts History of tonsillectomy Previous back surgery 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) S/P left oophorectomy (~2011) 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) 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 status (~2000) peritoneal shunt placed 2000 / removed 2021 Family History Family History Mother Family history of thyroid disease Breast cancer Grandparent Cerebrovascular accident maternal grandmother Hypertension maternal grandmother Bone cancer maternal grandfather Other Hypertension maternal uncle Lupus erythematosus maternal aunt Sibling Family history of thyroid disease sister Vulva cancer, Onset Age: 47 sister went to brain Brain cancer sister Daughter Family history of thyroid disease Social History Social History Smoking status: Never smoker Alcohol intake: current Alcohol use details: 2X yearly Substance use:
[2023-07-18] MEDS: LACTATED RINGERS 1,000 ML 150 ML IV CONT (10:53)
--- NOTE | 2023-07-18 11:45 | SUR.OPER ---
EGD START 1124, END 1128 COLONOSCOPY START 1134, END 1143
[2023-07-18 11:47] VITALS: BP 97/48; PULSE 60; RESP 16; O2SAT 100
[2023-07-18 11:57] VITALS: BP 96/54; PULSE 73; RESP 25; O2SAT 100
[2023-07-18 12:07] VITALS: BP 100/80; PULSE 60; RESP 22; O2SAT 100
== END 2023-07-18 12:17 | disposition home or self-care (01) ==
PROVIDERS: PCP Family Medicine; Visit Provider Internal Medicine Gastroenterology
PROC: 0DJ08ZZ Inspection of Upper Intestinal Tract, Via Natural or Artificial Opening Endoscopic (ICD-10-PCS; CPT 43235; principal; 2023-07-18 11:30)
DX: K29.70 Gastritis, unspecified, without bleeding (principal); K21.00 Gastro-esophageal reflux disease with esophagitis, without bleeding; K64.8 Other hemorrhoids; Z98.84 Bariatric surgery status; Z79.620 Long term (current) use of immunosuppressive biologic; Z79.631 Long term (current) use of antimetabolite agent; E06.3 Autoimmune thyroiditis; E78.5 Hyperlipidemia, unspecified; M32.9 Systemic lupus erythematosus, unspecified; M79.7 Fibromyalgia; M06.9 Rheumatoid arthritis, unspecified; Z86.711 Personal history of pulmonary embolism
CPT/HCPCS: 45378; 43239; 87081; 88305; J2704; J7120

== ENCOUNTER 2023-07-24 06:45 | Outpatient (CLI) | payer BC, MEDICARE, SELFPAY ==
--- NOTE | ~2023-07-24 | CT_ITS ---
CT of the Abdomen and Pelvis: Indication: Periumbilical pain Technique: 2.5 mm axial scans were obtained through the abdomen and pelvis following intravenous adm inistration of 100 cc of Omnipaque 350. Dose reduction technique was used on this scan by utilizing a utomated exposure control and iterative reconstruction technique. The dose-length product (DLP) was 5 00.49 mGy-cm. COMPARISON: 03/17/2023 Findings: Scans through the lung bases are unremarkable. Mild intrahepatic and extra hepatic biliary dilatation is probably related to prior cholecystectomy. The liver, spleen, pancreas, adrenals and kidneys are otherwise within normal limits. Cholecystectomy clips are present. No evidence of aortic aneurysm. No lymphadenopathy. No bowel obstruction or bowel wall thickening. There is no evidence to suggest acute appendicitis. Ev idence of prior presumed bariatric surgery. Images through the pelvis were performed. Urinary bladder unremarkable. No pelvic mass seen. No ascit es. Impression: No acute abnormalities seen. Mild intrahepatic and extrahepatic biliary dilatation is probably related to prior cholecystectomy. Reviewed, dictated and finalized at [facility]. [employer]CH[employer]IST Impression: No acute abnormalities seen. Mild intrahepatic and extrahepatic biliary dilatation is probably related to pr ior cholecystectomy.
== END 2023-07-24 06:46 | disposition home or self-care (01) ==
LOC: ANHIMG 06:47
PROVIDERS: PCP Family Medicine; Visit Provider Nurse Practitioner
DX: R10.33 Periumbilical pain (principal)
CPT/HCPCS: 74177; Q9967

== ENCOUNTER 2023-09-26 12:23 | Outpatient (RCR) | payer BC, MEDICARE, SELFPAY ==
--- NOTE | 2023-09-26 13:33 | OPREHPOC ---
Outpatient Therapy Plan of Care This is a Multidisciplinary Plan of Care that may contain components documented by all disciplines (PT, OT, and ST.) PT Problem 1 PT Problem #1 Knowledge Deficit PT Goal 1 Goal 1. Patient will perform independent HEP Target Visit 2 PT Problem 2 PT Problem #2 Pain PT Goal 1 Goal 1. No pain with pelvic exam 2. Patient able to do normal ADL's with pelvic pain no higher than 2/10 Target Visit 6 PT Problem 4 PT Problem #4 Impaired Strength
--- NOTE | 2023-09-26 13:33 | PTOPEVAL1 ---
Assessment and note entered by Toyin Ayala DPT Evaluation Information Assessment Status Evaluation Subjective Information Pt reports severe bladder/abdominal pain over the last year and thought she was getting UTI's. Also has lupus and RA. Saw urology and found out that more often than not there was not actually bacteria in her urine. Highest pain recently 10/10 and lowest 4/10. When pain is bad she cannot get out of bed. Voids 8 times a day and 1-2 times at night. Can hold urge as long as she needs to unless her pain gets worse. No incontinence. Denies pain with urination unless she actually has a UTI. BM every 2-3 days and sometimes has pain from an internal hemorrhoid. Pelvic pain with intercourse and some with a pelvic exam/pap smear and has been going on for the last year as well. Pt has been 1 time, delivery. History of severe endometriosis and had uterine adhesions on her bladder. Hysterectomy in 2011. Recent colonoscopy/endoscopy which showed several ulcers, previous gastic sleeve. Recent diagnosis of IC. Reports she is very emotionally affected by her pain at this time. Patient goal: get rid of or reduce pain, especially with intercourse Returns to Dr. Lund November 06 Reported Pain Level Pain Score 0: Self Report Assessment PT Clinical Summary The patient is presenting to skilled therapy with a history of pelvic pain and a recent diagnosis of IC. She presents with significantly increased pelvic floor muscle tone and pain with palpation as well as decreased hip and core strength which are contributing to her pain and difficulty performing normal activities. She will highly benefit from therapy to address these impairments in order to safely reduce pain and return to normal function. Plan of Care Interventions Electrical Stimulation,Gait Training,Hot Pack/Cold Pack,Manual Therapy,Neuro Re-education,Patient/ Caregiver Education,Therapeutic Activities, Therapeutic Exercise PT Services Indicated Yes Treatment Frequency and 1 time a week for 6 visits Duration These treatments will address the objective and functional deficits as
--- NOTE | 2023-10-03 10:32 | PCPTNOTE ---
Patient called to cancel appointment 10/03/23 due to having a fever.
--- NOTE | 2023-10-10 11:19 | PCPTNOTE ---
Patient called to cancel appointment on 10/10/23 due to illness.
--- NOTE | 2023-10-17 15:11 | PCPTNOTE ---
Patient called to cancel appointment 10/17/23 due to not feeling well.
--- NOTE | 2023-12-26 09:10 | PTOPDC ---
Assessment and note entered by JOSE RAFAEL VallejoT Evaluation Information Assessment Status Discharge - Pt Not Present Subjective Information - Assessment PT Clinical Summary The patient has self discharged due to other health issues. Plan of Care PT Services Indicated No
== END 2023-12-25 23:59 | disposition home or self-care (01) ==
LOC: ANHGOSHPT 12:23
PROVIDERS: PCP Family Medicine; Visit Provider Urology
DX: R30.0 Dysuria (principal); N30.10 Interstitial cystitis (chronic) without hematuria; R10.2 Pelvic and perineal pain
CPT/HCPCS: 97110; 97162

== ENCOUNTER 2023-12-11 09:51 | Outpatient (CLI) | payer BC, MEDICARE, SELFPAY ==
--- NOTE | ~2023-12-11 | XR_ITS ---
Right wrist Technique: PA, oblique, lateral, and ulnar deviation views were obtained. Clinical History: Sprain Findings: No acute fracture or dislocation is seen. Osseous alignment is anatomic. Joint spaces are p reserved. Soft tissues are unremarkable. Impression: Unremarkable right wrist radiographs. Reviewed, dictated and finalized at location . Impression: Unremarkable right wrist radiographs.
== END 2023-12-11 09:52 | disposition home or self-care (01) ==
PROVIDERS: PCP Physician Assistant; Visit Provider Plastic Surgery
DX: S63.509A Unspecified sprain of unspecified wrist, initial encounter (principal); M06.9 Rheumatoid arthritis, unspecified; X58.XXXA Exposure to other specified factors, initial encounter
CPT/HCPCS: 73110

== ENCOUNTER 2024-01-01 12:49 | Outpatient (CLI) | payer BC, MEDICARE, SELFPAY ==
--- NOTE | ~2024-01-01 | MR_ITS ---
MRI of the right wrist Technique: Coronal T1 weighted and proton density fat sat images, and axial and sagittal proton-densi ty and proton-density fat-sat images were acquired. Following intravenous administration of 18 cc Mul tiHance gadolinium, T1-weighted fat-sat imaging was performed in the axial, coronal, and sagittal ishmael bettina. Clinical History: Ganglion cyst, arthritis, TFCC tear Findings: Scapholunate ligament is intact, and there is no widening of the scapholunate interval. Cynthia otriquetral ligament is intact. Central articular disc of the TFCC appears intact, without evidence o f perforation. There is mild degenerative change throughout the wrist. No erosive change, joint effusion, or synovit is evident. There is regional marrow edema at the volar aspect of the distal radius, which could refl ect bone contusion. There is a small ganglion cyst along the volar aspect of the wrist radially, feliciano uring 7.5 mm in maximum diameter. No other soft tissue mass or fluid collection seen. Flexor tendons and carpal tunnel are unremarkable. Extensor tendons are intact. No suspicious postcon trast enhancement evident.. IMPRESSION: 7.5 mm ganglion cyst along the volar surface of the wrist radially. Probable focal contusion along the volar aspect of the distal radius. Reviewed, dictated and finalized at location M.
== END 2024-01-01 12:50 ==
LOC: MICIMG 12:50
PROVIDERS: PCP Physician Assistant; Visit Provider Plastic Surgery
DX: M67.431 Ganglion, right wrist (principal)
CPT/HCPCS: 73223; A9577

== ENCOUNTER 2024-09-16 12:17 | Emergency (ER) | payer MEDICARE, SELFPAY ==
--- NOTE | ~2024-09-16 | CT_ITS ---
CLINICAL INDICATION: Lower abdominal cramps. Personal history of lupus. COMPARISON: 07/24/2023. TECHNIQUE: Multiple contiguous axial images of the abdomen and pelvis were performed following the ad ministration of with 100 mL Omnipaque-350 intravenous contrast The dose-length product (DLP) was 677.91 mGy-cm. Automated exposure control and iterative reconstruction technique were employed. FINDINGS/OBSERVATIONS: Visualized lower thorax: The bilateral lung bases are clear. The heart is of normal size, without pericardial effusion. Small hiatal hernia is present. Postoperative change within the upper abdomen. Liver: The liver demonstrates homogeneous enhancement and is enlarged measuring 20 cm in longitudinal dimens ion. Gallbladder and biliary system: The gallbladder is surgically absent. The common bile duct is dilated, as are the central intrahepatic biliary ducts, unchanged from 2023. Pancreas: The pancreas enhances homogeneously without ductal dilatation. Spleen: The spleen enhances homogeneously and is not enlarged. Kidneys: The bilateral kidneys enhance symmetrically without hydronephrosis or renal calculi. Adrenal glands: Unremarkable. Gastrointestinal tract: Postoperative change within the upper abdomen. Fecal stasis within the colon. Appendix: Clips along the base of the cecum for which appendectomy is suspected. Vasculature: Unremarkable. Lymph nodes: No pathologically enlarged or morphologically suspicious lymph nodes within the retroperitoneum or at the root of the mesentery. Pelvic structures: The bladder is decompressed, and otherwise unremarkable. The uterus is either atrophic or surgically absent. Body wall and musculoskeletal: Small fat-containing umbilical hernia. Age-appropriate degenerative disease. IMPRESSION: Hepatomegaly. Redemonstration of intra and extrahepatic biliary ductal dilatation, unchanged from prior. No acute intra-abdominal pathology, as detailed above. Reviewed, dictated and finalized at location A.
[2024-09-16 12:20] VITALS: BP 107/67; PULSE 85; RESP 16; TEMP 36.4; O2SAT 99
--- NOTE | 2024-09-16 13:16 | ED.GENADULT ---
HPI - General Adult General Chief complaint: Abdominal Pain Stated complaint: Abd yaki-[id number] after having BM Time Seen by Provider: 09/16/24 12:58 History of Present Illness HPI narrative: Patient 53-year-old female who presents emergency department with chief complaint of abdominal pain. Patient states she has been having pain since Sunday reports that she has cramping throughout her abdomen the patient reports that the symptoms are not improved by anything reports got worse today patient states the pain is some the most packed snow and she has ever had patient does report she has had an appendectomy a cholecystectomy Related Data Home Medications ?Medication ?Instructions ?Recorded ?Confirmed ?Last Taken ?Type levothyroxine 112 mcg tablet 112 mcg PO DAILY 12/30/20 07/18/23 07/18/23 09:00 History methotrexate sodium 2.5 mg tablet 25 mg PO WEEKLY 12/30/20 07/18/23 07/11/23 History temazepam 30 mg capsule 30 mg PO HS 12/30/20 07/18/23 07/17/23 History topiramate 200 mg tablet 200 mg PO DAILY 12/30/20 07/18/23 07/17/23 History hydromorphone 4 mg tablet 4 mg PO Q4-6H PRN Pain 07/08/22 07/18/23 07/17/23 History folic acid 1 mg tablet 5 mg PO DAILY 10/24/22 07/18/23 07/17/23 History ondansetron HCl 4 mg tablet 4 mg PO Q4-6H PRN Nausea 06/25/23 07/18/23 07/17/23 History simvastatin 40 mg tablet 40 mg PO DAILY 06/25/23 07/18/23 07/17/23 History sumatriptan succinate 4 mg/0.5 mL 4 mg subcut DIRECTED PRN 06/25/23 07/18/23 07/17/23 History subcutaneous cartridge (refill) Migraine Headache adalimumab-adaz 40 mg/0.4 mL 40 mg subcut WEEKLY 12/11/23 Unknown History subcutaneous pen injector (Hyrimoz(CF) Pen) fluoxetine 20 mg capsule 60 mg PO DAILY 12/11/23 Unknown History pantoprazole 40 mg tablet,delayed 40 mg PO QAM 12/11/23 Unknown History release Allergies Allergy/AdvReac Type Severity Reaction Status Date / Time ketorolac (From Toradol) Allergy Intermediate Hives Verified 09/16/24 12:18 dihydroergotamine Allergy Unknown N/V Verified 09/16/24 12:18 amoxicillin (From Augmentin) Allergy Nausea and Verified 09/16/24 12:18 Vomiting clavulanic acid (From Allergy Nausea and Verified 09/16/24 12:18 Augmentin) Vomiting levofloxacin AdvReac Severe Nausea and Verified 09/16/24 12:18 Vomiting Review of Systems Review of Systems: A 10 system review of systems was completed on the patient and is negative except for what is stated in the HPI. Nursing and ancillary documentation was reviewed. [facility] Past Medical History Medical History Pulse visible in abdominal aorta Bright red blood per rectum Constipation Change in bowel habits Lymph node enlargement (09/29/19) lymp node removed Cataract Hyperlipidemia Hypothyroidism Aki's thyroiditis Pulmonary embolism (~2012) Fibromyalgia Rheumatoid arthritis Lupus Surgical History Surgical History History of orthopedic surgery (~2021) right shoulder repair Delivery by section (~1991) primary breech INVESTMENT ANALYST (ventriculoperitoneal) shunt status (~2000) peritoneal shunt placed 2000 / 2021 History of orthopedic surgery (2009) shoulder S/P left oophorectomy (~2011) 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) History of right salpingo-oophorectomy (05/25/16) Laparoscopy, right salpingo-oophectomy, removal of pelvic floor implant, adhesiolysis - surface inclusions cysts H/O: hysterectomy (~2011) HYSTERECTOMY- endometriosis Previous back surgery History of cholecystectomy (~1996) History of appendectomy History of tonsillectomy Family History Family History Mother Family history of thyroid disease Breast cancer Grandparent Cerebrovascular accident maternal grandmother Hypertension maternal grandmother Bone cancer maternal grandfather Other Hypertension maternal uncle Lupus erythematosus maternal aunt Sibling Family history of thyroid disease sister Vulva cancer, Onset Age: 47 sister went to brain Brain cancer sister Daughter Family history of thyroid disease Social History Social History Smoking status: Never smoker Alcohol intake: current Alcohol use details: 2X yearly Substance use: never Substance use type: does not use Living arrangements: with family Additional living arrangements comments: Occupation/Education: unemployed Additional occupation/education comments: disabled Gender identity (if verbalized by the patient): Female Sexual Orientation (if Verbalized by the Patient): Straight or Heterosexual Spiritual care concerns: No Exam Narrative: GENERAL: Well-appearing, well-nourished, and in moderate acute pain distress. HEAD: Normocephalic, atraumatic. EYES: PERRLA and EOMI. ENT: Nares clear, no rhinorrhea or epistaxis. Mucous membranes moist. NECK: Supple. CHEST: Clear to auscultation. No respiratory distress. HEART: Regular rate and rhythm. No murmur heard. Normal peripheral pulses. ABDOMEN: Soft, diffuse tender to palpation, nondistended, normal active bowel sounds. EXTREMITIES: Normal range of motion. No edema. SKIN: Warm, dry, no rash. NEURO: No focal deficits. Alert and oriented x3. PSYCH: Normal mood and affect. Course Vital Signs Vital signs: Vital Signs Temperature 36.4 C 09/16/24 12:20 Pulse Rate 85 09/16/24 12:20 Respiratory Rate 16 09/16/24 12:20 Blood Pressure 107/67 09/16/24 12:20 Pulse Oximetry 99 09/16/24 12:20 Oxygen Delivery Room Air 09/16/24 12:20 Temperature 36.4 C 09/16/24 12:20 Pulse Rate 59 L 09/16/24 14:58 Respiratory Rate 20 09/16/24 14:58 Blood Pressure 98/64 L 09/16/24 14:58 Pulse Oximetry 97 09/16/24 14:58 Oxygen Delivery Room Air 09/16/24 12:20 Medical Decision Making [facility] Narrative Medical decision making narrative: Differential diagnosis includes intra-abdominal infection, diverticulitis, colitis, bowel obstruction Laboratory studies were obtained on the patient showed a normal lactic acid CBC was within normal limits CMP showed no acute abnormality urinalysis showed no evidence UTI CT scan of the abdomen pelvis showed Hepatomegaly. Redemonstration of intra and extrahepatic biliary ductal dilatation, unchanged from prior. No acute intra-abdominal pathology, as detailed above. Vital Signs Vital Signs: Vital Signs Temperature 36.4 C 09/16/24 12:20 Pulse Rate 85 09/16/24 12:20 Respiratory Rate 16 09/16/24 12:20 Blood Pressure 107/67 09/16/24 12:20 Pulse Oximetry 99 09/16/24 12:20 Oxygen Delivery Room Air 09/16/24 12:20 Temperature 36.4 C 09/16/24 12:20 Pulse Rate 59 L 09/16/24 14:58 Respiratory Rate 20 09/16/24 14:58 Blood Pressure 98/64 L 09/16/24 14:58 Pulse Oximetry 97 09/16/24 14:58 Oxygen Delivery Room Air 09/16/24 12:20 Lab Data 09/16/24 13:37 09/16/24 13:37 Labs: Lab Results 09/16/24 09/16/24 Range/Units 13:37 14:05 WBC 4.0 L (4.5-10.0) K/mm3 RBC 4.39 (4.2-5.4) M/mm3 Hgb 12.2 (12.0-15.0) g/dL Hct 39.3 (37.0-47.0) % MCV 89.5 (80-100) fl MCH 27.8 (26-34) pg MCHC 31.0 L (32-36) g/dl RDW 15.9 H (11.5-14.5) % Plt Count 252 (150-375) k/mm3 MPV 9.7 (7.4-10.4) fl Immature Gran % (Auto) 0.0 (0-0.5) % Neut % (Auto) 41.4 L (45.5-73.1) % Lymph % (Auto) 37.4 (18.3-44.2) % [place] % (Auto) 13.2 H (2.6-8.5) % Eos % (Auto) 6.5 H (0-4.4) % Baso % (Auto) 1.5 H (0.2-1.2) % Lymph # (Auto) 1.50 (0.9-3.2) K/mm3 [place] # (Auto) 0.5 (0.1-0.6) K/mm3 Eos # (Auto) 0.3 (0-0.3) K/mm3 Baso # (Auto) 0.1 (0.0-0.1) K/mm3 Abs Immat Gran (auto) 0.00 (0.00-0.031) K/mm3 Absolute Neuts (auto) 1.7 (1.3-6.7) K/mm3 Absolute Nucleated RBC 0.000 (0.0-0.012) K/mm3 Nucleated RBC % 0.0 (0.0-0.2) % Sodium 142 (137-145) mmol/L Potassium 3.9 (3.4-5.0) mmol/L Chloride 110 H (98-107) mmol/L Carbon Dioxide 23 (22-30) mmol/L Anion Gap 9 (4-12) mmol/L BUN 13 (7-17) mg/dL Creatinine 0.94 (0.7-1.0) mg/dL Estim Creat Clear Calc 67 ml/min Estimated GFR > 60 (59 - ) Glucose 88 (65-110) mg/dL Lactic Acid 0.6 L (0.7-2.0) mmol/L Calcium 8.7 (8.4-10.2) mg/dL Magnesium 2.6 H (1.6-2.3) mg/dL Total Bilirubin 0.4 (0.2-1.3) mg/dL AST 22 (14-36) U/L ALT 13 (6-35) U/L Alkaline Phosphatase 71 (38-126) U/L Total Protein 7.0 (6.3-8.2) g/dL Albumin 4.2 (3.5-5.1) g/dL Lipase 82 (23-300) U/L Urine Color Yellow (Yellow) Urine Appearance Clear (Clear) Urine pH 5.5 (5.0-9.0) Ur Specific [place] 1.011 (1.001-1.035) Urine Protein Negative (Negative) mg/dL Urine Glucose (UA) Negative (Negative) mg/dL Urine Ketones Negative (Negative) mg/dL Ur Blood (Man) Negative (Negative) Urine Nitrate Negative (Negative) Urine Bilirubin Negative (Negative) Urine Urobilinogen 0.2 (<2.0) mg/dL Leukocyte Esterase Rfl Negative (Negative) KIERA/UL Discharge Plan Discharge Clinical Impression: Abdominal pain Patient Disposition: Home Condition: Stable Instructions: Antibiotic Form, Abdominal Pain (ED) Patient Language: Georgian Prescriptions: No Action methotrexate sodium 2.5 mg tablet 25 mg PO WEEKLY temazepam 30 mg capsule 30 mg PO HS topiramate 200 mg tablet 200 mg PO DAILY levothyroxine 112 mcg tablet 112 mcg PO DAILY hydromorphone 4 mg tablet 4 mg PO Q4-6H PRN (Reason: Pain) fluoxetine 20 mg capsule 60 mg PO DAILY folic acid 1 mg tablet 5 mg PO DAILY pantoprazole 40 mg tablet,delayed release (DR/EC) 40 mg PO QAM adalimumab-adaz [Hyrimoz(CF) Pen] 40 mg/0.4 mL pen injector 40 mg subcut WEEKLY ondansetron HCl 4 mg tablet 4 mg PO Q4-6H PRN (Reason: Nausea) simvastatin 40 mg tablet 40 mg PO DAILY sumatriptan succinate 4 mg/0.5 mL cartridge 4 mg SUBCUT DIRECTED PRN (Reason: Migraine Headache) sucralfate 1 gram tablet 1 g PO QID Qty: 120 1RF Follow-up/Referrals: Shelli,Suzanne Mckee MD [Primary Care Provider] - Timothy Sahni MD [Physician] - Time of Disposition: 16:03
--- OUTSIDE RECORDS SUMMARY | 2024-09-16 13:17 | XMS_ITS | CONTINUITY OF CARE DOCUMENT ---
Author Name maggie tawanafunmi Address Unknown Organization [facility] Address [address] [place] [address] Phone [phone] Care Team Providers Care Glue Clamp Operator Name Role Phone [place] BOSE, Eleonora Unavailable CARI FRANCO Unavailable [phone] PROBLEMS Condition Status Date Provider Notes Rheumatoid arthritis active Gabino Ahmedzai Pulmonary embolism active Gabino Ahmedzai Hyperlipidemia active Gabino Ahmedzai Hypothyroidism active Gabino Ahmedzai Dizziness completed - Gabino Ahmedza i Cardiology examination active Gabino Ahmedzai Lupus active Gabino Ahmedzai ENCOUNTERS Date Type Provider Location Encounter Diag nosis - In-person encounter Office Visit Eleonora Delarosa MD [place] [facility] - In-person encounter Office Visit Eleonora Delarosa MD [place] [facility] DizzinessCardiology examinationLupus VITAL SIGNS Date Observation Value Provider Body Mass Index (Ratio) 27.02 kg/m2 Jovanny Delarosa MD blood pressure, diastolic 78 mm[Hg] Rita nkLogmurray blood pressure, systolic 102 mm[Hg] Cheryle kLogic blood pressure, cuff size regular Lance Hebert blood pressure, diastolic 78 mm[Hg] Lance Hebert blood pressure, systolic 102 mm[Hg] Greg Hebert oxygen saturation, oximetry 98 % Tara Hebert pulse rate 98 /min Tara Hebert respiratory rate E&M 12 /min Tara Hebert weight E&M 191 [lb_av] Tara Hebert height E&M 70.5 [in_i] Tara Hebert ALLERGIES Allergy Name Onset Date Reaction Criticality Status AUGMENTIN GI High Criticality active TORADOL High Criticality active LEVAQUIN High Criticality active HISTORY OF MEDICATION USE Medication Status Instructions Dates Provider Indications Com ments pantoprazole 40 mg tablet,delayed release (DR/EC) active Tara Hebert fluoxetine 20 mg capsule active Tara Hebert levothyroxine 112 mcg tablet active Tara Hebert folic acid 1 mg tablet active Tara Hebert topiramate 200 mg tablet active Tara Hebert temazepam 30 mg capsule active Tara Hebert simvastatin 40 mg tablet active Tara Hebert fluoxetine 40 mg capsule active Tara Hebert methotrexate sodium 2.5 mg tablet active Take 25mg per week Tara Hebert hydromorphone 4 mg tablet active Tara Hebert Imitrex STATdose Pen 4 mg/0.5 mL pen injector active Tara Hebert hydromorphone 4 mg tablet completed - 6 Tara Hebert hydromorphone 4 mg tablet completed - 6 Tara Hebert INSURANCE PROVIDERS Payer name Policy type / Coverage type [place] red libertarian ID MEDICARE SECONDARY [place] [id number] [facility] [id number] ADVANCE DIRECTIVES Name Date DISCUSSED - NO DECISION MADE TREATMENT PLAN Date Name Performer Cardiology: O rders: C omplete Echo (62501) C T, Coronary Calcium Score (CPT-09651) Her updated medication list for this problem includes: Simvastatin 40 Mg Tablet (Simvastatin) Gabino Hartman Cardiology: O rders: C omplete Echo (66429) C T, Coronary Calcium Score (CPT-22274) Her updated medication list for this problem includes: Levothyroxine 112 Mcg Tablet (Levothyroxine) Gabino Castellanoisrael Cardiology: O rders: C omplete Echo (46576) C T, Coronary Calcium Score (CPT-32656) Gabino Jordenmaulik Cardiology: O rders: C omplete Echo (31286) C T, Coronary Calcium Score (CPT-37328) Gabino Hartman Cardiology: O rders: C omplete Echo (12267) C T, Coronary Calcium Score (CPT-45300) Gabino Curielluisisrael Cardiology: O rders: E KG (CPT-28510) C omplete Echo (48777) C T, Coronary Calcium Score (CPT-33490) Gabino Leonardomaulik Date Name CT, Coronary Calcium Score Complete Echo HISTORY OF PROCEDURES Procedure Date Procedure Name Provider Procedure Notes S tatus CT- Coronary CA score Eleonora Delarosa MD completed EKG Eleonora Delarosa MD completed
--- OUTSIDE RECORDS SUMMARY | 2024-09-16 13:17 | XMS_ITS | Data Portability ---
Author Organization [facility], Main Office Address [address] [place] [address] Care Team Providers Care Critical Care Specialist Name Role Phone SUZANNE CATES Primary Care Provider SUZANNE CATES Referring Provider Assessment Encounter Date Assessment Date Assessment LastModified by Organization Details LastModified Time 01/31/2023 01/31/2023 52 year old female, history or lupus and RA, presents for recheck of her right wrist distal radius fracture. At her last appointment we transitioned her from a cast to a removable splint. She states the wrist is feeling much better and thinks the splint is causing most of her discomfort. Physical exam: No tenderness over the distal radius. No tenderness over DRUJ, distal ulna, or snuffbox. Soreness with wrist movement. Sensation intact throughout. Brisk cap refill, 2+ radial pulse. XR of the wrist were reviewed demonstrating a healed minimally displaced distal radius fracture At this time we will transition her out of the wrist splint. She should work on wrist range of motion exercises at home to resolve any stiffness. She can continue to take anti-inflammator ies, ice, and elevate for discomfort. Follow up in 6 weeks to check her progress. [email or web address] Not available 02/01/2023 21:20:54 Plan of Treatment Reminders Order Date Submit Date Provider Last Modified By Organization Details Last Modified Time Details Appointments None recorded. Lab PPD (purified protein derivative ), skin test 2023 024 KAY [facility] [address], [place], [address], 06/11/202 4 08:38:08 urinalysis , dipstick 2022 023 [facility] [place], [address] [place] [address] [address], [place], [address], 3 15:11:[address] referral - had a heart monitor in 2016 : WNL ..BP low . numbness feet .Please eval and treat . Please call patient to schedule an appointmen t. Thank 2023 024 [facility] Referral Fax Line, [address] [facility], [facility] [address], [place], [address], 4 11:43:22 rheumatolo gist referral 2023 024 [email or web address] Elliot Holguin, [facility]3 [facility] [place] , [place], [address], 4 10:38:40 rheumatolo gist referral - Please call patient to schedule an appointmen t. Thank you. 2023 [email or web address] [facility]) , [address] [place], [address], 4 12:26:58 hand surgeon referral - fracture wrist one year ago , shooting pains in palm right. Please call patient to schedule an appointmen t. Thank you 2023 024 [email or web address] Shanda Soria MD, [address] [facility] [address], [place], [address], 4 09:14:47 occupation al therapist referral - please contact patient to schedule 2022 023 [facility] Luis, [address], [place], [address], 3 10:01:29 Procedures None recorded. Surgeries None recorded. Imaging MAMMO, screening, digital, bilateral 2023 024 [email or web address] 56 [facility], [address] , [place], [address], 4 09:04:43 XR, shoulder, 2 or more view 2022 023 [email or web address] [facility] [place], [address], [place], [address], 3 11:04:53 XR, wrist, 3 or more view 2022 023 [email or web address] [facility] [place], [address], [place], [address], 3 09:23:17 Medication Orders Hyrimoz(CF ) Pen 40 mg/0.4 mL subcutaneo us pen injector 2023 024 KAY [facility] [address], [address], 4 16:43:08 pantoprazo le 40 mg tablet,del ayed release 2023 024 [email or web address] 00 [facility] [address], [address], 4 13:34:55 Tubersol 5 tub. unit/0.1 mL intraderma l injection solution 2023 024 [email or web address] Not available 4 14:01:57 fluoxetine 60 mg tablet 2023 024 KAY [facility] [address], [address], 4 13:35:40 adalimumab -adaz 40 mg/0.4 mL subcutaneo us pen injector 2023 024 [email or web address] [facility] [address] [place] [address] [place], [address], 16:13:17 Patient TargetsNo targets recorded. Patient Instructions Encounter Date Encounter Id Patient Instructions Last Modified By Organization Details Last Modified Time 01/02/2024 [id number] She knows to go to the ED if chest pain is worse . Not available 01/12/2024 11:04:46 Reason for Referral Occupational Therapist Refer ral for Pain of right wrist rt wrist and elbow please contact patient to schedule Referring Physician: [facility], Encounter Date: 03/06/2023 Hand Surgeon Referral for Pa in of right wrist fracture wrist one year ago , shooting pains in palm right. Please call patient to schedule an appointment. Thank you Referring Physician: Josue Pearl [facility], Encounter Date: 11/12/2023 Retread Technician Referral for Rheumatoid arthritis Please call patient to schedule an appointment. Thank you. Referring Physician: [facility], Encounter Date: 11/12/2023 Ui Ux Engineer Referral for Rita booth had a heart monitor in 2016 : WNL ..BP low . numbness feet .Please eval and treat . Please call patient to schedule an appointment. Thank Referring Physician: Josue Pearl [facility], Encounter Date: 01/02/2024 Retread Technician Referral for Lupus erythematosus Referring Physician: Josue Pearl [facility], Encounter Date: 01/02/2024 Results Created Date Observation Date Name Description Value Unit Range Abnormal Flag Note LastModifiedBy Organization Detail LastModifiedTime 04/23/20 23 04/23/2023 urina lysis , dipst ick Leukocytes (reference range: negative daniel/ l) Negati ve Not Available [facility] [address], [place], [address], 04/23/2023 12:43:11 04/23/20 23 04/23/2023 urina lysis , dipst ick Nitrite (reference rage: negative mg/dl) negati ve Not Available [address], [place], [address], 04/23/2023 12:43:11 04/23/20 23 04/23/2023 urina lysis , dipst ick Urobilinogen (reference range: 0.2-1 mg/dl) 0.2 Not Available [address], [place], [address], 04/23/2023 12:43:11 04/23/2004/23/2023 urina lysis , dipst ick Protein (reference range: negative mg/dl) Negati ve Not Available [address], [place], [address], 04/23/2023 12:43:11 04/23/20 23 04/23/2023 urina lysis , dipst ick pH (reference range: 5-7) 7.0 Not Available [address] [place], [place], [address], 04/23/2023 12:43:11 04/23/20 23 04/23/2023 urina lysis , dipst ick Blood (reference range: negative Nicanor/ l) Negati ve Not Available [address], [place], [address], 04/23/2023 12:43:11 04/23/20 23 04/23/2023 urina lysis , dipst ick Specific Wellborn (reference range: 1.005-1.030) 1.010 Not Available [address] [place], [place], [address], 04/23/2023 12:43:11 04/23/20 23 04/23/2023 urina lysis , dipst ick Ketone (reference range: negative mg/dl) Negati ve Not Available [address], [place], [address], 04/23/2023 12:43:11 04/23/20 23 04/23/2023 urina lysis , dipst ick Bilirubin (reference range: negative mg/dl) Negati ve Not Available [address], [place], [address], 04/23/2023 12:43:11 04/23/20 23 04/23/2023 urina lysis , dipst ick Glucose (reference range: negative mg/dl) Negati ve Not Available [address], [place], [address], 04/23/2023 12:43:11 04/23/20 23 04/23/2023 urina lysis , dipst ick Appearance Clear Not Available [address], [place], [address], 04/23/2023 12:43:11 04/23/20 23 04/23/2023 urina lysis , dipst ick Color Pale Yellow Not Available [address], [place], [address], 04/23/2023 12:43:11 11/14/19 24 11/14/2023 PPD (sohail fied prote in deriv ative ), skin test TB PLACED 4 Not Available [address] [place], [place], [address], 11/12/2023 13:49:11 11/14/19 24 11/14/2023 PPD (sohail fied prote in deriv ative ), skin test TB negati ve Not Available [facility] [address] [place], [place], [address], 11/12/2023 13:49:11 01/11/20 23 XR, wrist No observ ation record ed. [email or web address] [facility] [place] [address], [place], [address], 01/10/2023 19:48:42 02/01/20 23 XR, wrist , 3 or more view No observ ation record ed. [email or web address] [facility] [place] [address], [place], [address], 02/01/2023 21:17:27 03/06/20 23 XR, shoul alva, 2 or more view No observ ation record ed. [email or web address] [facility] [place] [address], [place], [address], 03/06/2023 18:41:51 03/17/20 23 03/17/2023 CT, abdom en + pelvi s, w/o contr ast No observ ation record ed. [address], [place], [address], 03/21/2023 12:33:14 07/24/19 24 07/24/2023 CT, abdom en + pelvi s, w/ contr ast No observ ation record ed. [address], [place], [address], 08/15/2023 11:27:09 01/01/20 24 01/01/2024 MRI, wrist , w/o contr ast No observ ation record ed. [email or web address], [place], [address], 01/03/2024 11:55:11 01/25/20 24 01/25/2024 MAMMO , scree stephanie, digit al, bilat eral No observ ation record ed. [facility] [address] [place], [address], 04/29/2024 14:44:08 01/25/20 24 01/25/2024 MAMMO , scree stephanie, digit al, bilat eral No observ ation record ed. [facility] [address] [place], [address], 04/29/2024 14:44:09 02/03/20 24 02/03/2024 CT, angio gram, chest , w/wo contr ast No observ ation record ed. [place] [address], [place], [address], 02/05/2024 08:19:42 03/10/20 24 03/10/2024 elect shilo farias am No observ ation record ed. [address] [facility] [address] [place] [facility] [address], [place], [address], 03/11/2024 09:48:16 04/24/20 24 04/23/2024 michael s echoc ardio gram No observ ation record ed. [address] [facility] [address] [place] [facility] [address], [place], [address], 04/25/2024 08:20:49 Result Notes None recorded. Problems Name Problem SNOMED Code Status Onset Date Resolution Date Notes Provider Name and Address Organization Details Recorded Time Paroxysmal vertigo 508290125 Active Not Available [facility] 3 11:56:58 Chronic abdominal pain 294728017 Active Not Available [facility] 3 11:56:59 Disorder of shoulder 653624291 Active Not Available [facility] 3 11:56:59 Acute sinusitis 38623879 Active Not Available [facility] 3 11:56:59 Pain of right shoulder joint 7884869078857 9100 Active 2021 Not Available [facility] 3 11:56:59 Anti-nucle ar factor detected 183318639 Active Not Available [facility] 3 11:56:59 Pain in finger 76454777 Active Not Available [facility] 3 11:56:59 Insomnia 833616286 Active Not Available [facility] 3 11:56:59 Recurrent urinary tract infection 230706970 Active Not Available [facility] 3 11:56:59 Microscopi c hematuria 855440302 Active Not Available [facility] 3 11:56:59 Lupus erythemato amalia 059023239 Active Not Available [facility] 3 11:56:59 Scapulalgi a 33822875 Active Not Available [facility] 3 11:56:59 Abdominal pain 54122766 Active Not Available [facility] 3 11:56:59 Chronic pelvic pain of female 582117540 Active Not Available [facility] 3 11:56:59 Labyrinthi tis 48155071 Active Not Available [facility] 3 11:56:59 Urinary symptoms 160785942 Active Not Available [facility] 3 11:56:59 Perimenopa usal disorder 867597470 Active Not Available [facility] 3 11:56:59 Endometrio sis of pelvis 78183273 Active Not Available [facility] 3 11:56:59 Shoulder joint pain 792942577 Active Not Available [facility] 3 11:56:59 Syncope 627423141 Active Not Available [facility] 3 11:56:59 Non-suppur ative otitis media 026061405 Active Not Available [facility] 3 11:56:59 Acute low back pain 390285208 Active Not Available [facility] 3 11:56:59 Menopause present 439554495 Active Not Available [facility] 3 11:56:59 Left upper quadrant pain 996728833 Active Not Available [facility] 3 11:56:59 Pain in pelvis 28379331 Active Not Available [facility] 3 11:56:59 Knee pain Active Not Available [facility] 3 11:56:59 Sinusitis 45106899 Active Not Available [facility] 3 11:56:59 Migraine 41278218 Active Not Available [facility] 3 11:56:59 Abnormal cortisol 562320410 Active 2021 Not Available [facility] 3 11:56:59 Tension-ty pe headache 603550682 Active Not Available [facility] 3 11:56:59 Dizziness 332696064 Active Not Available [facility] 3 11:56:59 Hypothyroi dism 01350296 Active Not Available [facility] 3 11:56:59 Migraine with aura 9995074 Active Not Available [facility] 3 11:56:59 Anxiety 65186074 Active Not Available [facility] 3 11:56:59 Systemic lupus erythemato amalia 45215533 Active Not Available [facility] 3 11:56:59 Hyperlipid emia 23026086 Active Not Available [facility] 3 11:56:59 Disorder of bursa of shoulder region 61986322 Active Not Available [facility] 3 11:56:59 Carpal tunnel syndrome 30484912 Active Not Available [facility] 3 11:56:59 Joint pain 57293707 Active Not Available [facility] 3 11:56:59 Pulmonary embolism 68329080 Active Not Available [facility] 3 11:56:59 Female stress incontinen ce 10192618 Active Not Available [facility] 3 11:56:59 Diarrhea 82245714 Active Not Available [facility] 3 11:56:59 Vitamin B12 deficiency (non anemic) 96094006 Active 2021 Not Available [facility] 3 11:56:59 Dyspareuni a 26023210 Active Not Available [facility] 3 11:56:59 Brachial neuritis 14385042 Active Not Available [facility] 3 11:56:59 Disorder of breast 45451529 Active Not Available [facility] 3 11:56:59 Palpitatio ns 53751741 Active Not Available [facility] 3 11:56:59 Serous otitis media 15183260 Active Not Available [facility] 3 11:57:00 Fatigue 92646916 Active Not Available [facility] 3 11:57:00 Primary fibromyalg ia syndrome 51577890 Active Not Available [facility] 3 11:57:00 Abdominal bloating 118822074 Active 2022 Not Available [facility] 3 11:56:59 Depressive disorder 65127079 Active 2022 Not Available [facility] 3 11:56:59 Acute urinary tract infection 857100742 Active 2022 Not Available [facility] 3 11:56:59 Pain of right wrist 5647720289208 00 Active 2022 RUSTY EastA null, [place] - [facility] 3 15:50:31 Closed fracture of distal end of radius 19040393 Active 2022 Arcenio Torrez MD [address] [facility], [address], [address] , [facility] 3 23:44:14 Chronic migraine without aura 2633897756914 05 Active 2022 Jason Cevallos RN null, [place] - [facility] 3 14:05:24 Pain of left shoulder joint 1183475717484 [address] Active 2022 Brenda Byrnes, ATC L null, [place] - [facility] 3 10:23:41 Dysuria 47939965 Active 2022 Suzanne Marques MD [address] [facility], [facility] [address], [place], [address] , [facility] 3 12:43:06 Rheumatoid arthritis 23881060 Active 2023 Clover Duran null, [place] - [facility] 4 16:17:46 Tuberculos is screening Active 2023 QUYEN Benson [address], [address], [place], [address] , [facility] 4 13:26:31 Rochelle sampson 063958249 Active 2023 QUYEN Benson [address], [address], [place], [address] , [facility] 4 16:35:52 Screening for malignant neoplasm of breast Active 2023 QUYEN Benson [address], [address], [place], [address] , [facility] 4 16:38:12 Adult health examinatio n Active 2023 QUYEN Benson [address], [address], [place], [address] , [employer] 4 11:01:44 Problem Notes None recorded. Procedures Surgical History Date Name Laterality Status Provider Name and Address Organization Details Recorded Time 07/18/19 24 EGD completed Jason Cevallos RN [facility] 07/20/2023 09:47:59 laparoscopy with removal of adnexal structures completed Not Available [facility] 08/02/2022 09:13:46 oophorectomy completed Not Available [facility] 08/02/2022 09:13:46 section completed Not Available [facility] 08/02/2022 09:13:46 Shoulder joint surgery completed Not Available [facility] 08/02/2022 09:13:46 Cholecystectomy completed Not Available [facility] 08/02/2022 09:13:46 removal of peritoneal venous shunt completed Not Available [facility] 08/02/2022 09:13:46 laparoscopy completed Not Available [facility] 08/02/2022 09:13:46 operation on lymph node completed Not Available [facility] 08/02/2022 09:13:46 Hysterectomy completed Not Available [facility] 08/02/2022 09:13:46 Tonsillectomy completed Not Available [facility] 08/02/2022 09:13:46 laparoscopic sleeve gastrectomy completed Not Available [facility] 08/02/2022 09:13:46 insertion of peritoneovenous shunt completed Not Available [facility] 08/02/2022 09:13:46 Appendectomy completed Not Available [facility] 08/02/2022 09:13:46 Imaging Results Imaging Date Name Status LastModified by Organization Details LastModified Time 01/10/2023 XR, wrist completed [email or web address] [facility] [place] [address] [facility] [address], [place], [address], 01/10/2023 19:48:42 01/31/2023 XR, wrist, 3 or more view completed [email or web address] [facility] [place] [address], [place], [address], 02/01/2023 21:17:27 03/06/2023 XR, shoulder, 2 or more view completed [email or web address] [facility] [place] [address] [facility] [address], [place], [address], 03/06/2023 18:41:51 03/17/2023 CT, abdomen + pelvis, w/o contrast completed [address], [place], [address], 03/21/2023 12:33:14 07/24/2023 CT, abdomen + pelvis, w/ contrast completed [address], [place], [address], 08/15/2023 11:27:09 01/01/2024 MRI, wrist, w/o contrast completed [email or web address] [facility], [place], [address], 01/03/2024 11:55:11 01/25/2024 MAMMO, screening, digital, bilateral completed [facility] [address] [place], [address], 04/29/2024 14:44:08 01/25/2024 MAMMO, screening, digital, bilateral completed [facility] [address], [place], [address], 04/29/2024 14:44:09 02/03/2024 CT, angiogram, chest, w/wo contrast completed [address], [place], [address], 02/05/2024 08:19:42 03/10/2024 electrocardiogram completed [address] [facility] [address] [place] [facility] [address], [place], [address], 03/11/2024 09:48:16 04/23/2024 stress echocardiogram completed [address] [facility] [address] [facility] [address], [place], [address], 04/25/2024 08:20:49 Procedure Notes None recorded. Medical Equipment None Reported. Allergies Allergen ID Allergen Name Allergen Category Reaction Reaction Severity Criticality Documentation Date Start Date Code Code System Note Provider Name and Address Organization Details Recorded Time 58356 Toradol medicatio n rash severe Not available 08/02/2022 97840 RxNorm Not Available [facility] 3 09:20:44 38817 Levaquin medicatio n vomiting severe Not available 08/02/2022 96517 2 RxNorm Not Available [facility] 3 09:20:44 22873 Augmentin medicatio n diarrhea vomiting Not available Not available Not available 08/02/2022 04497 2 RxNorm Not Available [facility] 3 09:20:44 Medications Name Sig Start Date Stop Date Status Note LastModified by Organization Details LastModified Time fluoxetin e 40 mg capsule TK 1 C PO Daily with fluoxeti ne 20 mg active Not Available Not Available No t Available cyclobenz aprine 10 mg tablet TAKE 1 TABLET BY MOUTH TWICE A DAY 09/27 completed Not Available Not Available Not Available amoxicill in 500 mg capsule TK 2 CS PO QID FOR FIRST 24 H THEN 1 C PO QID TAT active Not Available Not Available No t Available fluconazo le 100 mg tablet TAKE 1 TABLET BY MOUTH EVERY DAY 09/27 completed Not Available Not Available Not Available promethaz ine-DM 6.25 mg-15 mg/5 mL oral syrup 07/16 completed Not Available Not Available Not Available levothyro xine 137 mcg tablet TK ONE T PO QD START 08/28 active Not Available Not Available No t Available potassium chloride ER 10 mEq capsule,e xtended release TK ONE C PO BID FOR 7 DAYS FOR LOW POTASSIU M. active Not Available Not Available No t Available prednison e 10 mg tablet TAKE 1 TABLET BY MOUTH TWICE A DAY FOR CHRONIC PAIN active Not Available Not Available No t Available gabapenti n 600 mg tablet active Not Available Not Available Not Available cefuroxim e axetil 250 mg tablet TK 1 T PO BID 11/06 completed Not Available Not Available Not Available naproxen 375 mg tablet active Not Available Not Available Not Available ketoconaz ole 2 % shampoo active Not Available Not Available Not Available sulfasala zine 500 mg tablet 04/06 completed Not Available Not Available Not Available azithromy samir 250 mg tablet TAKE 2 TABLETS BY MOUTH TODAY, THEN TAKE 1 TABLET DAILY FOR 4 DAYS 12/28 completed Not Available Not Available Not Available Lidocaine Viscous 2 % mucosal solution USE 15 ML EVERY 3 HOURS BY ORAL ROUTE NEEDED. 09/27 completed Not Available Not Available Not Available fluconazo le 150 mg tablet TAKE 1 TABLET EVERY DAY BY ORAL ROUTE DIRECTED FOR 1 DAY. MAY REPEAT IN 3 DAYS NEEDED 11/29 completed Not Available Not Available Not Available benzonata te 200 mg capsule TAKE 1 CAPSULE BY MOUTH THREE TIMES DAILY NEEDED active Not Available Not Available No t Available valacyclo vir 1 gram tablet Take 1 tablet every 12 hours by oral route for 7 days. 09/27 completed Not Available Not Available Not Available sumatript an 100 mg tablet 1 at onset of headache and may repeat in 2 hours active Not Available Not Available No t Available hydrocodo ne 5 mg-acetam inophen 325 mg tablet TAKE 1 TABLET BY MOUTH EVERY 6 HOURS NEEDED FOR PAIN 09/26 completed Not Available Not Available Not Available ondansetr on HCl 8 mg tablet Take 1 tablet twice a day by oral route. 10/24 completed Not Available Not Available Not Available sucralfat e 1 gram tablet TAKE 1 TABLET BY MOUTH FOUR TIMES A DAY active Not Available Not Available No t Available ondansetr on HCl 4 mg tablet TAKE 1 TABLET BY MOUTH EVERY 4 TO 6 HOURS NEEDED FOR NAUSEA active Not Available Not Available No t Available prednison e 20 mg tablet Take 2 tabs PO twice daily for 2 days; 1 tab PO twice daily for 5 days; 1/2 tab PO twice daily for 2 days; 1/2 tab PO once for 1 day. TAKE 2ND DOSE EVERYDAY AT NOON-10 DAY COURSE 2023 active Not Available Not Available Not Avai lable Tubersol 5 tub. unit/0.1 mL intraderm al injection solution Inject 0.1 mL by intrader mal route. 2023 active Not Available Not Available Not Avai lable rizatript an 10 mg tablet take 1 po at onset of headache and may repeat in 2 hours as needed 07/26 completed Not Available Not Available Not Available sertralin e 100 mg tablet TK 1 AND 1/2 TS PO D active Not Available Not Available No t Available phentermi ne 15 mg capsule TAKE 1 CAPSULE BY MOUTH TWICE A DAY DX: CHRONIC WEIGHT LOSS active Not Available Not Available No t Available acetazola mide 250 mg tablet TK 2 TS PO BID active Not Available Not Available No t Available Insulin Syringe MicroFine 1 mL 27 gauge x /8 10/24 completed Not Available Not Available Not Available topiramat e 25 mg tablet active Not Available Not Available Not Available metronida zole 500 mg tablet active Not Available Not Available No t Available ciproflox acin 500 mg tablet TAKE 1 TABLET BY MOUTH EVERY 12 HOURS 09/27 completed Not Available Not Available Not Available morphine ER 30 mg tablet,ex tended release 11/06 completed Not Available Not Available Not Available sulfameth oxazole 800 mg-trimet hoprim 160 mg tablet TAKE 1 TABLET BY MOUTH TWICE A DAY FOR 7 DAYS 09/27 completed Not Available Not Available Not Available hydrocodo ne 10 mg-acetam inophen 325 mg tablet Take 1-2 TABLET EVERY 4 HOURS by oral route prn. 04/06 completed Not Available Not Available Not Available triamcino lone acetonide 0.1 % topical cream 09/27 completed Not Available Not Available Not Available butalbita l-acetami nophen-ca ffeine 50 mg-325 mg-40 mg tablet TK 1 TO 2 TS PO Q 6 H PRN active Not Available Not Available No t Available simvastat in 40 mg tablet 1 tab po daily 2024 active Not Available Not Available Not Avai lable oxycodone 15 mg tablet TK 1 T PO QID PRN 07/16 completed Not Available Not Available Not Available prednison e 10 mg tablets in a dose pack 09/06 completed Not Available Not Available Not Available amoxicill in 875 mg tablet active Not Available Not Available Not Available hydromorp jordan 2 mg tablet TK 1 T PO Q 4 H active Not Available Not Available No t Available methotrex ate sodium 2.5 mg tablet TAKE 10 TABLETS BY MOUTH ONCE A WEEK. active Not Available Not Available No t Available Lidoderm 5 % topical patch APPLY 1 PATCH BY TOPICAL ROUTE ONCE DAILY (MAY WEAR UP TO 12HOURS. 09/27 completed Not Available Not Available Not Available oxycodone -acetamin ophen 10 mg-325 mg tablet 07/16 completed Not Available Not Available Not Available dicyclomi ne 20 mg tablet active Not Available Not Available Not Available temazepam 30 mg capsule TAKE 1 CAPSULE BY MOUTH DAILY AT BEDTIME NEEDED. MAX DAILY DOSE: 1 active Not Available Not Available No t Available Kenalog 10 mg/mL suspensio n for injection In office injectio n administ ered by the provider 12/28 completed ND: [id number] 4-20 Not Available Not Available Not Available dexametha sone 1 mg tablet take tablet at 10 p.m. the night before 8 a.m. cortisol test active Not Available Not Available No t Available meclizine 25 mg tablet TK 1 T PO TID active Not Available Not Available No t Available hydrocodo ne 7.5 mg-acetam inophen 325 mg tablet Take 1-2 tablet(s ) EVERY4- 6 HOURS by oral route as needed. active Not Available Not Available No t Available cephalexi n 500 mg capsule TAKE 1 CAPSULE BY MOUTH EVERY 12 HOURS X 7 DAYS 11/11 completed Not Available Not Available Not Available pantopraz ole 40 mg tablet,de layed release TAKE 1 TABLET BY MOUTH EVERY DAY active Not Available Not Available No t Available simvastat in 20 mg tablet TAKE 1 TABLET BY MOUTH DAILY 10/19 completed Not Available Not Available Not Available cyanocoba antwon (vit B-12) 1,000 mcg/mL injection solution INJECT 1 ML SUBCUTAN EOUSLY EVERY WEEK FOR 28 DAYS 12/27 completed Not Available Not Available Not Available oseltamiv ir 75 mg capsule TK 1 C PO BID FOR 5 DAYS 10/19 completed Not Available Not Available Not Available fluoxetin e 20 mg tablet active Not Available Not Available Not Available hydrocodo ne 7.5 mg-acetam inophen 750 mg tablet TK 1 TO 2 TS PO Q 4 TO 6 H PRN active Not Available Not Available No t Available hyoscyami ne 0.125 mg sublingua l tablet 10/19 completed Not Available Not Available Not Available promethaz ine 25 mg tablet TAKE ONE TABLET BY MOUTH EVERY 6 TO 8 HOURS NEEDED 09/06 completed Not Available Not Available Not Available levothyro xine 150 mcg tablet 1 po daily active Not Available Not Available No t Available hydrochlo rothiazid e 12.5 mg capsule Take 1 capsule every day by oral route for 30 days. active Not Available Not Available No t Available gabapenti n 300 mg capsule active Not Available Not Available Not Available omeprazol e 20 mg capsule,d elayed release TAKE 1 CAPSULE BY MOUTH EVERY DAY 10/24 completed Not Available Not Available Not Available folic acid 1 mg tablet TAKE 5 TABLETS BY MOUTH DAILY. active Not Available Not Available No t Available hydroxyzi ne HCl 25 mg tablet active Not Available Not Available No t Available morphine ER 15 mg tablet,ex tended release 04/06 completed Not Available Not Available Not Available hydrocodo ne 5 mg-acetam inophen 500 mg tablet TK ONE T PO Q 4 TO 6 H active Not Available Not Available No t Available topiramat e 200 mg tablet TAKE 1 TABLET BY MOUTH EVERY DAY 2024 active Not Available Not Available Not Avai lable zolpidem 5 mg tablet TK 1 T PO HS active Not Available Not Available No t Available estradiol 0.5 mg tablet Take 1 tablet every day by oral route for 90 days. active Not Available Not Available No t Available ergocalci ferol (vitamin D2) 1,250 mcg (50,000 unit) capsule TAKE 1 CAPSULE (50,000 UNITS TOTAL) BY MOUTH ONCE A WEEK active Not Available Not Available No t Available hydroxych loroquine 200 mg tablet TK 1 T PO BID 08/25 completed Not Available Not Available Not Available polyethyl griselda glycol 3350 17 gram/dose oral powder FOLLOW WRITTEN INSTRUCT IONS GIVEN FOR COLONOSC OPY PREP active Not Available Not Available No t Available estradiol 0.01% (0.1 mg/gram) vaginal cream 1 GRAM (PEASIZE D APPLICAT ION) GRACE URETHRAL SUNDAY, , AND 12/27 completed Not Available Not Available Not Available zolpidem 10 mg tablet TK 1 T PO QHS active Not Available Not Available No t Available methylpre dnisolone 4 mg tablets in a dose pack FPD active Not Available Not Available Not Available hydromorp jordan 4 mg tablet TAKE 1 TO 2 TABLETS BY MOUTH EVERY 4 TO 6 HOURS NEEDED FOR PAIN, MAX 5 TABS PER DAY active Not Available Not Available No t Available morphine 15 mg immediate release tablet TK 1 T PO BID 07/16 completed Not Available Not Available Not Available clobetaso l 0.05 % scalp solution active Not Available Not Available Not Available ondansetr on 4 mg disintegr ating tablet active Not Available Not Available Not Available cefdinir 300 mg capsule TAKE 1 CAPSULE BY MOUTH TWICE A DAY 11/11 completed Not Available Not Available Not Available topiramat e 100 mg tablet TK 1 T PO Q NIGHT active Not Available Not Available No t Available fluoxetin e 20 mg capsule TAKE 1 CAPSULE BY MOUTH EVERY DAY WITH 40 MG FLUOXETI NE 2024 active Not Available Not Available Not Avai lable fluticaso ne propionat e 50 mcg/actua tion nasal spray,amalia pension active Not Available Not Available Not Available sertralin e 50 mg tablet TAKE 1 TABLET BY MOUTH EVERY DAY 02/07 completed Not Available Not Available Not Available dicyclomi ne 10 mg capsule TK 1 C PO QID PRN active Not Available Not Available No t Available diazepam 5 mg tablet TAKE 1 TABLET BY MOUTH DIRECTED 1 HOUR BEFORE PROCEDUR E 09/27 completed Not Available Not Available Not Available levothyro xine 112 mcg tablet TAKE 1 TABLET BY MOUTH EVERY DAY IN THE MORNING 2024 active Not Available Not Available Not Avai lable amoxicill in 875 mg-potass ium clavulana te 125 mg tablet Take 1 tablet every 12 hours by oral route for 10 days. active Not Available Not Available No t Available Ventolin HFA 90 mcg/actua tion aerosol inhaler 07/16 completed Not Available Not Available Not Available escitalop tess 10 mg tablet TK 1 T PO D 10/19 completed Not Available Not Available Not Available Humira 40 mg/0.8 mL subcutane ous syringe kit 11/06 completed Not Available Not Available Not Available cyclobenz aprine 5 mg tablet active Not Available Not Available No t Available rosuvasta tin 10 mg tablet TK 1 T PO D 08/25 completed Not Available Not Available Not Available hydrocodo ne 7.5 mg-acetam inophen 325 mg/15 mL oral solution active Not Available Not Available Not Available topiramat e 50 mg tablet TK 1 T PO BID active Not Available Not Available No t Available nitrofura ntoin monohydra te/macroc rystals 100 mg capsule TAKE 1 CAPSULE BY MOUTH TWICE A DAY FOR 7 DAYS 11/11 completed Not Available Not Available Not Available duloxetin e 30 mg capsule,d elayed release TAKE 1 CAPSULE BY MOUTH EVERY DAY 10/22 completed Not Available Not Available Not Available duloxetin e 60 mg capsule,d elayed release TAKE 1 CAPSULE BY MOUTH EVERY DAY 01/01 completed Not Available Not Available Not Available pregabali n 150 mg capsule TAKE 1 CAPSULE BY MOUTH TWICE A DAY 09/27 completed Not Available Not Available Not Available Lyrica 225 mg capsule 07/16 completed Not Available Not Available Not Available Clobex 0.05 % topical spray active Not Available Not Available Not Available levothyro xine 2012 active Not Available Not Available Not Avai lable Imitrex STATdose Pen 2012 active Not Available Not Available Not Avai lable Ambien 2012 active Not Available Not Available Not Avai lable sumatript an 4 mg/0.5 mL subcutane ous pen injector INJECT FOR HEADACHE DIRECTED active Not Available Not Available No t Available sumatript an 4 mg/0.5 mL subcutane ous cartridge (refill) INJECT FOR HEADACHE DIRECTED FOR ONSET OF HEADACHE AND REPEAT IN 2 HOURS NEEDED. active Not Available Not Available No t Available lidocaine (PF) 10 mg/mL (1 %) injection solution In office injectio n administ ered by the provider 12/28 completed Internal note: [facility]: [phone] [id number] rnal note: 2 SITES Not Available Not Available Not Available Humira Pen 40 mg/0.8 mL subcutane ous kit once weekly 02/15 completed Not Available Not Available Not Available oxycodone 10 mg tablet TK 1 T PO BID PRN 07/16 completed Not Available Not Available Not Available Tirosint 112 mcg capsule TAKE 1 CAPSULE BY MOUTH EVERY DAY IN THE MORNING FOR 90 DAYS 09/27 completed Not Available Not Available Not Available Xarelto 2012 active Not Available Not Available Not Avai lable Nucynta ER 50 mg tablet,ex tended release TK ONE T PO BID 07/16 completed Not Available Not Available Not Available fluoxetin e 60 mg tablet Take 1 tablet every day by oral route in the evening for 90 days. 2023 active Not Available Not Available Not Avai lable Xarelto 15 mg tablet TK 1 T PO BID STARTING TONIGHT FOR 21 DAYS THEN USE 20MG SCRIPT active Not Available Not Available No t Available Xarelto 20 mg tablet TK ONE T PO QD active Not Available Not Available No t Available BD Insulin Syringe Ultra-Fin e 1 mL 31 gauge x 5/16 10/24 completed Not Available Not Available Not Available Actemra 162 mg/0.9 mL subcutane ous syringe Inject 0.9 mL every 2 weeks by subcutan eous route. 11/29 completed Not Available Not Available Not Available Narcan 4 mg/actuat ion nasal spray BOBBY REP ALN 10/24 completed Not Available Not Available Not Available Xeljanz XR 11 mg tablet,ex tended release 11/29 completed Not Available Not Available Not Available Xtampza ER 9 mg capsule sprinkle 07/16 completed Not Available Not Available Not Available Fluvirin 7259-1873 45 mcg (15 mcg x 3)/0.5 mL intramusc ular suspensio n ADM 0.5ML IM UTD 07/26 completed Not Available Not Available Not Available Humira(CF ) Pen 40 mg/0.4 mL subcutane ous kit 11/11 completed formular y change Not Available Not Available Not Available ID NOW COVID-19 Test Kit TEST DIRECTED TODAY 12/28 completed Not Available Not Available Not Available Hyrimoz(C F) Pen 40 mg/0.4 mL subcutane ous pen injector INJECT 1 PEN UNDER THE SKIN EVERY 7 DAYS 2023 active Not Available Not Available Not Avai lable Hyrimoz 40 mg/0.4 ml 01/01 completed Not Available Not Available Not Available Vitals Date Recorded Body height Provider Name an d Address Organization Details Last Updated DateTime 01/31/2023 179.07 cm Brenda Byrnes ATC L [employer] [facility] [employer] 01/31/2023 15:01:37 Date Recorded Body height Body mass index (BMI) Body weight Provider Name and Address Organization Details Last Updated DateTime 03/06/2023 179.07 cm 26.5 kg/m2 81755.77 g Brenda Byrnes ATC L [employer] [facility] [employer] 03/06/2023 10:22:55 Date Recorded Body height Body mass index (BMI) Body weight Body temperature Heart rate Oxygen saturation Oxygen saturation in Arterial blood by Pulse oximetry Systolic blood pressure Diastolic blood pressure Provider Name and Address Organization Details Last Updated DateTime 3 179.07 cm 26.6 kg/m2 92608.3 7 g 96.8 [degF] 95 /min 98 % 98 % 110 mm[Hg] 62 mm[Hg] Fadia Begum MA [facility] [employer] 3 12:23:18 Date Recorded Body height Body mass index (BMI) Body weight Body temperature Heart rate Oxygen saturation Oxygen saturation in Arterial blood by Pulse oximetry Respiratory rate Systolic blood pressure Diastolic blood pressure Provider Name and Address Organization Details Last Updated DateTime 4 179.07 cm 27 kg/m2 36678.1 4 g 97.7 [degF] 92 /min 98 % 98 % 16 /min 132 mm[Hg] 70 mm[Hg] Brenda Das RN [facility] [employer] [facility] 4 13:11:53 Date Recorded Body height Body mass index (BMI) Body weight Body temperature Heart rate Oxygen saturation Oxygen saturation in Arterial blood by Pulse oximetry Respiratory rate Systolic blood pressure Diastolic blood pressure Provider Name and Address Organization Details Last Updated DateTime 4 179.07 cm 26.7 kg/m2 67077.9 6 g 97.2 [degF] 72 /min 97 % 97 % 16 /min 90 mm[Hg] 64 mm[Hg] Brenda Das RN [facility] [employer] [facility] 4 16:17:25 Social History Question Answer Notes LastModified by Organizat ion Details LastModified Time Tobacco Smoking Status Never Smoker Kimberly Krzysztof san, [facility] [employer] [facility] 03/06/2023 10:21:25 What Is Your Level Of Alcohol Consumption? Occasional [id number] Information not available 08/02/2022 What Is Your Level Of Caffeine Consumption? Moderate [id number] Information not available 08/02/2022 In The 14 Days Before Symptom Onset, Have You Had Close Contact With A Laboratory-confir med COVID-19 While That Case Was Ill? No [email or web address] Information not available 03/06/2023 In The 14 Days Before Symptom Onset, Have You Had Close Contact With A Person Who Is Under Investigation For COVID-19 While That Person Was Ill? No Information not available 03/06/2023 What Type Of Diet Are You Following? REGULAR Tries To Watch Past Intake [id number] Information not available 08/02/2022 Which Illicit Or Recreational Drugs Have You Used? Marijuana - Medical Card [email or web address] Information not available 03/06/2023 What Was The Date Of Your Most Recent Tobacco Screening? 12/27/2022 [email or web address] Information not available 03/06/2023 Have You Ever Been Counseled For Unhealthy Alcohol Use? No [email or web address] Information not available 03/06/2023 What Is Your Relationship Status? [id number] Information not available 08/02/2022 Do You Use Any Illicit Or Recreational Drugs? No [email or web address] Information not available 03/06/2023 Has Tobacco Cessation Counseling Been Provided? No [email or web address] Information not available 03/06/2023 Have You Recently Traveled Abroad? No [email or web address] Information not available 03/06/2023 Do You Have Any Dietary Restrictions? No Information not available 03/06/2023 Do You Or Have You Ever Used Any Other Forms Of Tobacco Or Nicotine? No [email or web address] Information not available 03/06/2023 Sex: Female Functional Status Question Answer Note LastModified by Organizat ion Details LastModified Time What is your exercise level? Occasional [id number] Information not available 08/02/2022 Mental Status None recorded. Family History Relationship Description Onset Age of this Age Resolved Age Notes LastModified by Organization Details LastModified Time Mother Cerebrovascu lar accident Not available 10:21:21 Mother Malignant tumor of breast [email or web address] Not available 03/06 10:21:21 Mother Disorder of thyroid gland [id number] Not available 08/02/2022 09:13:47 Maternal Grandmother Hypertensive disorder [id number] Not available 08/02/2022 09:13:47 Maternal Grandmother Disorder of thyroid gland [id number] Not available 08/02/2022 09:13:47 Maternal Uncle Hypertensive disorder [id number] Not available 08/02/2022 09:13:47 Sister Disorder of thyroid gland [id number] Not available 08/02/2022 09:13:47 Sister Malignant tumor of vulva [email or web address] Not available 03/06 10:21:21 Daughter Disorder of thyroid gland [id number] Not available 08/02/2022 09:13:47 Maternal Aunt Disorder of thyroid gland [id number] Not available 08/02/2022 09:13:47 Maternal Aunt Lupus erythematosu s [email or web address] Not available 03/06 10:21:21 Maternal Grandfather Malignant neoplasm of bone [email or web address] Not available 03/06 10:21:21 Medical History Condition Response BLINDNESS N CYSTITIS N RHEUMATIC FEVER N BLADDER PROBLEMS N KIDNEY STONES N Enlarged Prostate N MRSA N SLEEP APNEA N INFECTIOUS DISEASE N HEART ARRHYTHMIA N LUNG DISEASE/DISORDER N PROSTATE N INSOMNIA N HISTORY OF DRUG ABUSE N COPD N RADIATION / CHEMOTHERAPY N HIGH CHOLESTEROL / HYPERLIPIDEMIA N EYE PROBLEMS Y HYPERTHYROIDISM N UTI N BLOOD DISEASES N EDEMA N HYPOTHYROIDISM Y SHINGLES N BOWEL PROBLEMS N DEPRESSION (INCLUDING POST ) N BACK / NECK PROBLEMS N HAVE YOU BEEN HOSPITALIZED OR SEEN IN [facility] IN THE PAST YEAR ? N STROKE/TIA N THYROID DISEASE N BENIGN PROSTATIC HYPERPLASIA N DIALYSIS N OBESITY N GERD/NAUSEA N ANEURYSM N OSTEOPOROSIS N URINARY/BLADDER/KIDNEY PROBLEMS N Increased Urination N CORONARY ARTERY DISEASE (CAD) N ARTHRITIS Y USE OF BLOOD THINNERS N NO SIGNIFICANT PAST MEDICAL HISTORY N DIABETES, TYPE N EMPHYSEMA N GASTROINTESTINAL DISORDER N PARKINSON N GASTROINTESTINAL BLEEDING N BLOOD CLOTS Y Difficulty Urinating N ASTHMA N HEPATITIS / LIVER DISEASE N CATARACTS Y GOUT N SLEEP DISORDER N ALZHEIMER'S DISEASE N ERECTILE DYSFUNCTION N HERPES N HEADACHES/MIGRAINES N SEIZURES/EPILEPSY N GI PROBLEMS N Low Testosterone N HEART MURMUR N PACEMAKER N DIZZINESS N HEART DISEASE/HEART PROBLEMS N AIDS/HIV N KIDNEY DISEASE N MULTIPLE SCLEROSIS N LIVER DISEASE N MALE HYPOGONADISM N HYPERTENSION N CANCER: SPECIFY Y TOURETTE'S N BLOOD TRANSFUSION N ANESTHESIA COMPLICATIONS N ANEMIA/BLOOD DISORDER N ATRIAL FIBRILLATION N AUTOIMMUNE DISEASE Y TUBERCULOSIS N GLAUCOMA N Gynecological HistoryNo gynecological history recorded. Obstetrics History GPAL:G 0 P 0 0 0 0 Immunizations Vaccine Type Date Status Note Provider Nam e and Address Organization Details Recorded Time influenza, unspecified formulation 6 completed Not Available [facility] 12/12/2022 11:57:00 Influenza, split virus, quadrivalent, preservative 5 completed Not Available [facility] 12/12/2022 11:57:00 Past Encounters Encounter ID Performer Location Encounter Start Date Encounter Closed Date Diagnosis/Indication Diagnosis SNOMED-CT Code Diagnosis ICD10 Code Diagnosis Note [id number] [facility] [place] [address] 08/03/2020 00:00:00 08/04/2020 06:30:54 [id number] [facility] [place] [address] 11/29/2020 00:00:00 11/29/2020 19:36:47 [id number] [facility] [place] [address] [place] [address] 12/28/2020 00:00:00 12/28/2020 17:40:27 [id number] [facility] [place] [address] [place] [address] 04/20/2021 00:00:00 04/20/2021 15:16:13 [id number] [facility] [place] [address] [place] [address] 05/03/2021 00:00:00 05/03/2021 17:07:48 [id number] [facility] [place] [address] [place] [address] 07/15/2021 00:00:00 07/15/2021 10:23:07 [id number] [facility] [place] [address] [place] [address] 08/02/2021 00:00:00 08/02/2021 17:11:18 [id number] [facility] [place] [address] [place] [address] 08/31/2021 00:00:00 08/31/2021 17:15:56 [id number] [facility] [place] [address] [place] [address] 11/29/2021 00:00:00 11/29/2021 16:26:38 [id number] [facility] [address] [address] 12/28/2021 00:00:00 12/28/2021 21:18:04 [id number] [facility] [place] [address] [place] [address] 02/07/2022 00:00:00 02/07/2022 20:38:56 [id number] [facility] [place] [address] [place] [address] 03/21/2022 00:00:00 03/21/2022 15:22:20 [id number] [facility] [place] [address] [place] [address] 05/05/2022 00:00:00 05/05/2022 19:07:59 [id number] [facility] [address] [facility] [address] [place] [address] 07/17/2022 00:00:00 07/17/2022 17:06:41 [id number] Suzanne Marques MD [facility] [address] [place] [address] 09/27/2022 16:01:13 09/27/2022 16:43:53 Abdominal pain 76848804 R10.9 pantoprazo le to take BID x 6 weeks. Abdominal bloating 29106 9008 R14.0 Samples of align given. Depressive disorder 3548 9007 F32.A F/u in 6 weeks. d/c fluoxetine Lupus erythematosus 2008 30625 L93.0 f/u with rheumatolo gist [id number] Arcenio Torrez MD [facility] [place] [address] [place] [address] 12/27/2022 15:16:52 12/27/2022 17:03:37 Pain of right wrist 1832022915 67672 M25.531 Closed fra cture of distal end of radius 80577331 S52.501A [id number] Gricel Castrejon NP [facility] [place] [address] [place] [address] 01/10/2023 15:29:33 01/10/2023 16:34:24 Pain of right wrist 6367751154 21737 M25.494 [id number] Gricel Castrejon NP [facility] [place] [address] [place] [address] 01/31/2023 14:58:48 01/31/2023 15:25:22 Pain of right wrist [id number] 26668 M25.742 [id number] QUYEN Stanley [facility] [place] [address] [place] [address] 03/06/2023 10:19:55 03/06/2023 11:21:40 Pain of left shoulder joint [id number] 1180020 M25.512 Patient has a history of a biceps tenodesis performed in July [address] latham. She states that she has been having some clicking and popping has caused some discomfort with specific motions, specifical ly with the arm abducted with repetitive internal and external rotation of the arm. He does have some tenderness over the AC joint, which may be related to the symptoms that she is experienci ng. we discussed possible treatment options including continuing with home exercises that she has previously done after her surgery and 2021. She may also use topical anti-infla mmatories to help with the discomfort . she should avoid any motions that cause recurrence popping and discomfort . She will follow up in 6 weeks for re-evaluat ion. Pain of right wrist 3161 [id number] 80433 M25.531 52-year-ol d female returns to clinic concerning persistent right wrist pain after a distal radius fracture that occurred approximat vinny 3 months ago. We discussed that the fracture is completely healed at this point, but she may have developed some tendinitis in the right wrist after the immobiliza tion to treat the fracture. We discussed it might be related to her exacerbati on of her RA and lupus. In regards to the numbness and tingling that she occasional ly experience s in the small and ring fingers, we discussed that this may be related to her sleeping with her elbow completely flexed and recommende d sleeping with the arm extended. We discussed possible treatment options including topical anti-infla mmatories and a referral to physical therapy to work on range of motion and strength. She will follow up in 6 weeks for re-evaluat ion. [id number] Suzanne Marques MD [facility] [address] [place] [address] 04/23/2023 12:14:02 04/23/2023 12:58:53 Chronic abdominal pain [id number] R10.9 See GI. Dysuria [id number] R30.0 F/u with urologist. 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 Systemic l upus erythematosus 14787641 M32.9 Depressive disorder 3548 9007 F32.A Tuberculos is screening 104393744 Z11.7 Anxiety 90422498 F41.9 Chronic mi graine without aura [id number] 53093 G43.709 Hyperlipidemia 55390979 E78.5 Hypothyroidism 91717789 E03.9 Insomnia 583884658 G47.0 0 Primary fi bromyalgia syndrome 40784374 M79.7 [id number] QUYEN [facility] Jef thompson [address] [facility] [place] [address] 01/02/2024 15:30:40 01/02/2024 17:03:00 Lightheadedness [id number] R42 Screening for malignant neoplasm of breast 608221035 Z12.39 Lupus erythematosus 2009 58097 L93.0 Rheumatoid arthritis 698 76421 M06.9 Adult heal th examination 642008263 Z00.00 Health Concerns Section Related Observation LastModified by Organization Detai ls LastModified Time None Recorded Concern Status LastModified by Organization Details LastModified Time None Recorded Advance Directives Directive None Recorded Payers Encounter Date Sequence Insurance Name Policy Number Policy Hooper Covered Member ID Hooper Member ID Guarantor Name 01/31/2023 1 [id number] Vern Zarate [id number] 22 Pretty A Elliot 01/31/2023 2 [place] Pretty Zarate [id number] 8 Pretty Lowryy 03/06/2023 1 [id number] Vern Zarate [id number] 22 Pretty A Elliot 03/06/2023 2 [place] Pretty Lowryy [id number] 8 Pretty A Elliot 04/23/2023 1 [id number] Vern Zarate [id number] 22 Pretty Zarate 04/23/2023 2 [place] Pretty Zarate [id number] 8 Pretty Zarate 11/12/2023 1 [facility]: ([place] [id number] Vern Zarate [id number] 22 Pretty Zarate 11/12/2023 2 [place] Pretty Zarate [id number] 8 Pretty Zarate 01/02/2024 1 [facility]: (PP[place] [id number] Vern Zarate [id number] 22 Pretty Zarate 01/02/2024 2 [place] Pretty Zarate [id number] 8 Pretty Zarate Notes Date Note Type Note Provider Name and Address Organization Details Recorded Time 03/06/2023 text/html 52-year-old fco moreno returns to the clinic concerning right wrist pain after a fracture of the distal radius that occurred approximately 3 months ago. She reports that she has been wearing her brace throughout the night, but continues to have pain in her wrist. She notes sometimes when she wakes up she has numbness and tingling in the pinky and ring finger. She states that she has difficulty with gentle range of motion of her right wrist due to pain and it is affecting her daily activities. She does have some concerns that it may be related to her lupus and RA exacerbation. She also reports some popping and pain in her left shoulder with certain movements. She denies any injury. She does note that she previously had a biceps tenodesis performed on the left biceps in early 2021. QUYEN Stanley [address] [facility] [facility] [address], [place], [address], [facility] [employer] 03/06/2023 18:50:39 04/23/2023 text/html Here today for chronic abdominal pain. Has a knot on stomach around belly button and it hurts. She feels it more with standing up. It will spasm and gets severe pain that stops her in her tracks. The pain is intermittent. Seeing GI next week.Has had pain on and off x 1 year. In last couple of months feels heart beat in stomach but has gotten worse. She is also feeling urinary sx thinks has IC has pain in suprapubic area and has pain with intercourse too. Always feeling spasms in bladder.Has migraines and the sumatriptan does not work like used to is wondering if can do anything else. Suzanne Marques MD [address], [place], [address], [employer] 04/23/2023 20:33:12 11/12/2023 text/html pain where wrist was fractured a year ago QUYEN Benson [address], [place], [address], [employer] 11/29/2023 15:50:43 01/02/2024 text/html ears feel off . no fever. numbness , tingling , fingers , toes , light headedness, some chest discomfort , mild , no exertional chest pain QUYEN Benson [address], [place], [address], [employer] 01/12/2024 11:05:06 OBGyn Episode No OBEpisode recorded.
--- OUTSIDE RECORDS SUMMARY | 2024-09-16 13:17 | XMS_ITS | Clinical Summary ---
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 Active FLUoxetine HCl Powder Take 40 mg by mouth every morning. Active levothyroxine (SYNTHROID) 112 MCG tablet Take 1 tablet (112 mcg total) by mouth every morning. Active HUMIRA PEN 40 MG/0.4ML pen-injector kit 0.4 mLs (40 mg total). 3 Active cyanocobalamin (B-12) 1000 MCG/ML injection Patient states she only takes these as needed now 3 Active cyclobenzaprin e (FLEXERIL) 10 MG tablet Take 1 tablet (10 mg total) by mouth 2 (two) times daily. 3 Active estradiol (ESTRACE) 0.1 MG/GM vaginal cream Patient states for unknown reason this has not been getting filled but she should be on it 3 Active folic acid (FOLVITE) 1 MG tablet Take 5 tablets (5 mg total) by mouth daily. 3 Active HYDROmorphone (DILAUDID) 4 MG tablet TAKE 1 OR 2 TABLETS BY MOUTH EVERY 4-6 HOURS NEEDED FOR PAIN DX: CHRONIC PAIN SYNDROME Active BD INSULIN SYRINGE U/F 31G X 16 1 ML Misc USE TO INJECT B12 SUBCUTANEOUSLY ONCE WEEKLY FOR 90 DAYS 2 Active methotrexate (TREXALL) 2.5 MG tablet TAKE 10 TABLETS BY MOUTH WEEKLY Active pantoprazole EC (PROTONIX) 40 MG tablet Take 1 tablet (40 mg total) by mouth daily. Active ondansetron (ZOFRAN) 4 MG tablet Take 1 tablet (4 mg total) by mouth every 4 (four) hours as needed. FOR NAUSEA 3 Active Phentermine HCl 15 MG Cap Patient states she rarely takes. States this is for energy 3 Active predniSONE (DELTASONE) 10 mg tablet TAKE 1 TABLET BY MOUTH TWICE A DAY FOR CHRONIC PAIN 3 Active simvastatin (ZOCOR) 40 MG tablet Take 1 tablet (40 mg total) by mouth daily. Active SUMAtriptan Succinate Refill 4 MG/0.5ML Solution Cartridge INJECT FOR HEADACHE DIRECTED FOR ONSET OF HEADACHE AND REPEAT IN 2 HOURS NEEDED. Active temazepam (RESTORIL) 30 MG capsule Take 1 capsule (30 mg total) by mouth nightly at bedtime. 3 Active topiramate (TOPAMAX) 200 MG tablet Take 1 tablet (200 mg total) by mouth daily. Active Active Problems Problem Noted Date Diagnosed Date Chronic migraine without aur a without status migrainosus, not intractable 03/29/2023 Social History Tobacco Use Types Packs/Day Years Used Date Smoking Tobacco: Never Smokeless Tobacco: Never Tobacco Cessation:Counseling Given: Not Answered Alcohol Use Standard Drinks/Week Comments Not Currently 0 (1 standard drink = 0.6 oz pur e alcohol) maybe 2 times per year PHQ-2 Answer Date Recorded Patient Health Questionnaire-2 Score 0 03/29/2023 Comments Unknown Sex and Gender Information Value Date Recorded Sex Assigned at Not on file Legal Sex Female 9:20 AM CDT Gender Identity Not on file Sexual Orientation Not on file Last Filed Vital Signs Vital Sign Reading Time Taken Comments Blood Pressure 118/67 03/29/2023 7:29 AM CDT Pulse 63 03/29/2023 7:29 AM CDT Temperature - - Respiratory Rate - - Oxygen Saturation 98% 03/29/2023 7:29 AM CDT Inhaled Oxygen Concentration - - Weight 87.5 kg (193 lb) 03/29/2023 7:29 AM CDT Height 179.1 cm (5' 10.5 ) 03/29/2023 7:29 AM CD T Body Mass Index 27.3 03/29/2023 7:29 AM CDT Plan of Treatment Health Maintenance Due Date Last Done Comments Cervical Cancer Screening Pa p Smear (Age 30 to 64) Every 3 Years 1970 Colorectal Cancer Screening Colonoscopy (10 Years) 1970 Annual Physical 1973 Hepatitis C 1988 DTaP, Tdap and Td Vaccines ( 1 - Tdap) 1989 Hepatitis B Vaccines (1 of 3 - 19+ 3-dose series) 1989 Cervical Cancer Screening Pa p with HPV Testing (Age 30 to 64) Every 5 Years 2000 Cervical Cancer Screening wi th HPV 2000 Mammogram Screening 2010 Zoster Vaccines (1 of 2) 2020 COVID-19 Vaccine (3 - 2023-2 5 season) 2024 01/19/2021, 12/29/2020 PHQ-2 (Physician [place]) 06/04/2024 03/29/2023 Meningococcal B Vaccine Aged Out No l onger eligible based on patient's age to complete this topic Meningococcal Vaccine Aged Out No serafin wendie eligible based on patient's age to complete this topic Pneumococcal Vaccine: Pediatrics (0 to 5 Years) and At-Risk Patients (6 to 49 Years) Aged Out No longer eligible b ased on patient's age to complete this topic RSV Immunizations Under 20 Months Aged Out No longer eligible b ased on patient's age to complete this topic Insurance [facility] MEDICARE Care Teams Nuclear Plant Operator Relationship Specialty Start Date End Date Suzanne Blanco MD [facility] [place] [address] PCP - General FAMILY PRACTICE 02/14/23
--- OUTSIDE RECORDS SUMMARY | 2024-09-16 13:17 | XMS_ITS | Referral Summary ---
Author Organization [facility] [address] [place] [address] [facility] [place] [address] Care Team Providers Care Supervisor Properties Name Role Phone Reji Torres MD Unavailable [phone] Janiya Valencia MD Unavailable [phone] Josue Pearl Primary Care Provider + Encounters Date Type Department Care Team Description 08/18/2024 3:44 PM CDT - 08/18/2024 11:59 PM CDT Hospital Encounter [facility] [address] [place] [address] Radiculopathy, cervical; Periodic headache syndrome, not intractable Discharge Disposition: Discharge to home or self care 08/18/2024 3:44 PM CDT - 08/18/2024 11:59 PM CDT Hospital Encounter [facility] [address] [place] [id number] Radiculopathy, cervical; Periodic headache syndrome, not intractable Discharge Disposition: Discharge to home or self care 08/12/2024 3:45 PM CDT Lab [facility] at [address] [place] [address] Rheumatoid arthritis, involving unspecified site, unspecified whether rheumatoid factor present (HCC); Systemic lupus erythematosus with other organ involvement, unspecified SLE type (HCC); Lupus arthritis (HCC); High risk medication use 08/12/2024 3:00 PM CDT Office Visit [facility] Rhe[facility]ology [address] [facility] [address] [place] [id number] Kerrie Lyles MD Rheumatoid arthritis, involving unspecified site, unspecified whether rheumatoid factor present (HCC) (Primary Dx); Systemic lupus erythematosus with other organ involvement, unspecified SLE type (HCC); Lupus arthritis (HCC); High risk medication use; History of migraine headaches; Dizziness; Memory loss 07/14/2024 Telephone [facility] Rheumatology [address] [facility] 5th [place] [address] [place] [address] Sarah Tadeo, Ruel P.A. FOR BENLYSTA 07/01/2024 Telephone [facility] at [address] [place] [address] Tess De Los Santos MA 06/29/2024 3:17 PM HOSPITAL EDUCATION COORDINATOR - 06/29/2024 11:59 PM HOSPITAL EDUCATION COORDINATOR Hospital Encounter [address] [address] Acute cystitis without hematuria Discharge Disposition: Discharge to home or self care 06/29/2024 3:15 PM HOSPITAL EDUCATION COORDINATOR Office Visit [facility] Medical [facility] [place] [address] [facility] [place] [address] Lissette Mendoza NP Acute cystitis without hematuria (Primary Dx) 06/29/2024 Patient Self-Triage [facility] HealthCare/ Physicians [address] [place] [id number] Mychart, Generic Provider from Last 3 Months Allergies Active Allergy Reactions Criticality Noted Date Comments Amoxicillin-Pot Clavulanate Diarrhea,Vomiting Low 05/18/2021 Ketorolac Rash High 09/09/2015 Reaction: Rash, , Levofloxacin Nausea only,Vomiting,Nausea And Vomiting High 09/09/2015 Reaction: Nausea, Vomiting, , Lorazepam Palpitations Low 09/02/2012 Other Unknown 05/18/2021 Prochlorperazine Maleate Anxiety Low 10/26/2015 Medications SUMAtriptan succinate (IMITREX STATDOSE PEN) 4 mg/0.5 mL pen injector inject (4MG) by subcutaneous route once; may be repeated 1 hour after the first dose if headache pain returns or increases in severity; do not exceed 2 doses within 24 hours 0 08/02/19 12 Active temazepam (RESTORIL) 30 mg capsule nightly 3 05/12/20 21 Active topiramate (TOPAMAX) 200 mg tablet nightly Active clobetasoL (TEMOVATE) 0.05 % external solution as needed Ac tive cyanocobalamin (Vitamin B-12) 1,000 mcg/mL injection as needed 08/23/19 23 Active cyclobenzaprine (FLEXERIL) 10 mg tablet Take 1 tablet (10 mg total) by mouth 2 (two) times a day 06/27/19 23 Active FLUoxetine (PROzac) 20 mg capsule Take 3 capsules (60 mg total) by mouth nightly 10/13/19 24 Active FLUoxetine (PROzac) 40 mg capsule TAKE 1 CAPSULE BY MOUTH EVERY DAY WITH 20MG 11/20/19 24 Active ketoconazole (NIZORAL) 2 % shampoo as needed 09/07/19 24 Active naloxone (Narcan) 4 mg/actuation spray,non-aerosol BOBBY REP ALN Active phentermine 15 mg capsule TAKE 1 CAPSULE BY MOUTH TWICE A DAY DX: CHRONIC WEIGHT LOSS 01/05/20 23 Active Ca-D3-mag ec-yqww-ydx-nessa- bor 600 mg calcium- 20 mcg-50 mg tablet Take by mouth Active multivitamin tabletIndications :Vitamin Deficiency Prevention Take 1 tablet by mouth Active calcium carbonate (OS-ARNULFO) 648 mg (260 mg elemental) tablet 260 mg Ac tive cyanocobalamin/fo lic acid (vitamin H35-wzrns acid) 500-400 mcg tablet Take by mouth Active ergocalciferol (VITAMIN D) 50,000 unit capsule TAKE 1 CAPSULE (50,000 UNITS TOTAL) BY MOUTH ONCE A WEEK 12 capsule 03/06/20 24 Active belimumab (BENLYSTA) auto-injectorIndi cations:Systemic lupus erythematosus with other organ involvement, unspecified SLE type (HCC),Lupus arthritis (HCC) Inject 1 mL (200 mg total) under the skin every 7 days 1 mL 11 05/16/20 24 Active ondansetron (ZOFRAN) 4 mg tablet TAKE 1 TABLET BY MOUTH NEEDED FOR NASUEA 06/08/19 25 Active HYDROmorphone (DILAUDID) 4 mg tablet TAKE 1-2 TABLETS BY MOUTH EVERY 4-6 HOURS NEEDED FOR PAIN. MAX DOSE 5 PER DAY 06/24/19 25 Active levothyroxine (SYNTHROID) 112 mcg tablet Take 1 tablet (112 mcg total) by mouth every morning 04/22/[address] (PROTONIX) 40 mg EC tablet Take 1 tablet (40 mg total) by mouth daily 05/25/20 24 Active simvastatin (ZOCOR) 40 mg tablet Take 1 tablet (40 mg total) by mouth daily 03/22/20 24 Active methotrexate 2.5 mg tabletIndications :Other - non-oncology Take 10 tablets (25 mg total) by mouth every 7 days 40 tablet 2 08/13/19 25 Active folic acid (FOLVITE) 1 mg tablet Take 1 tablet (1 mg total) by mouth daily 30 tablet 3 08/13/19 25 Active predniSONE (DELTASONE) 5 mg tablet Take 4 tablets (20 mg) by mouth daily for 5 days, THEN 3 tablets (15 mg) daily for 5 days, THEN 2 tablets (10 mg) daily for 5 days. NO REFILLS. 45 tablet 08/13/19 25 025 Active Problems Problem Noted Date Diagnosed Date Numbness and tingling 04/23/2024 Knee pain 05/18/2021 Acute low back pain 05/18/2021 Acute sinusitis 05/18/2021 Anxiety 05/18/2021 Brachial neuritis 05/18/2021 Carpal tunnel syndrome 05/18/2021 Diarrhea 05/18/2021 Disorder of breast 05/18/2021 Disorder of bursae of shoulder region 05/18/2021 Dizziness 05/18/2021 Dyspareunia 05/18/2021 Endometriosis of pelvis 05/18/2021 Fatigue 05/18/2021 Female stress incontinence 05/18/2021 Left upper quadrant pain 05/18/2021 Microscopic hematuria 05/18/2021 Pain in finger 05/18/2021 Paroxysmal vertigo 05/18/2021 Perimenopausal disorder 05/18/2021 Positive antinuclear antibody 05/18/2021 Recurrent urinary tract infection 05/18/2021 Serous otitis media 05/18/2021 Shoulder joint pain 05/18/2021 Symptoms involving urinary system 05/18/2021 Syncope 05/18/2021 Tension-type headache 05/18/2021 Elevated serum creatinine 10/27/2015 Hypokalemia 10/27/2015 Non-intractable vomiting with nausea 10/26/2015 Gastroesophageal reflux disease without esophagi tis 2015 Systemic lupus erythematosus 08/02/2015 Overview (09/08/2016): Lupus (systemic lupus erythematosus) Rheumatoid arthritis 08/02/2015 Overview (09/08/2016): Rheumatoid arthritis, involving unspecified site, unspecified rheumatoid factor presence Obstructive sleep apnea syndrome 08/02/2015 Overview (09/08/2016): MEETA (obstructive sleep apnea) Acquired hypothyroidism 08/02/2015 Overview (09/08/2016): Hypothyroidism (acquired) Seizure disorder 08/02/2015 Overview (09/08/2016): Seizure disorder Adiposity 08/02/2015 Overview (09/08/2016): Obesity (BMI 30.0-34.9) Chest pain 08/02/2015 Overview (09/08/2016): Chest pain of uncertain etiology Hypertriglyceridemia 08/02/2015 Overview (09/08/2016): Hypertriglyceridemia Hypothyroidism 05/04/2015 Overview (09/08/2016): Hypothyroidism, unspecified hypothyroidism type Fibrositis 05/04/2015 Overview (09/08/2016): Fibromyalgia Bradycardia 05/04/2015 Overview (09/08/2016): Bradycardia Palpitations 05/04/2015 Overview (09/08/2016): Palpitations Migraine headache 03/26/2014 Cervicalgia 03/23/2014 Thyroid activity decreased 02/11/2014 Insomnia 02/11/2014 Hyperlipidemia 02/11/2014 Common migraine with intractable migraine 2013 Multiple-type hyperlipidemia 10/18/2013 Overview (09/07/2016): Mixed hyperlipidemia Migraine 10/18/2013 Overview (09/07/2016): Migraine Hypercholesterolemia 10/18/2013 Overview (09/07/2016): Hypercholesteremia Pulmonary embolism 09/02/2012 Immunizations Immunization Administration Dates Next Due Influenza, Trivalent, Cell C ulture-based MDCK, Preservative Free, Antibiotic Free, Intramuscular 03/04/2024 Social History Tobacco Use Types Packs/Day Years Used Date Smoking Tobacco: Never Alcohol Use Standard Drinks/Week Comments Yes 0 (1 standard drink = 0.6 oz pur e alcohol) AUDIT-C Answer Date Recorded Frequency of Alcohol Consumption Not on file 08/12/2024 Q2: How many drinks containi ng alcohol do you have on a typical day when you are drinking? Patient does not drink Frequency of Binge Drinking Not on file 08/02 Comments No Sex and Gender Information Value Date Recorded Sex Assigned at Not on file Legal Sex Female 10:14 AM HOSPITAL EDUCATION COORDINATOR Gender Identity Female 11/13/2023 8:22 AM CDT Sexual Orientation Straight 11/13/2023 8: 22 AM CDT Last Filed Vital Signs Vital Sign Reading Time Taken Comments Blood Pressure 87/63 08/12/2024 2:58 PM CDT Pulse 75 08/12/2024 2:58 PM CDT Temperature 36.3 C (97.3 F) 08/12/2024 2:58 PM CDT Respiratory Rate 18 06/29/2024 3:20 PM HOSPITAL EDUCATION COORDINATOR Oxygen Saturation 95% 06/29/2024 3:20 PM HOSPITAL EDUCATION COORDINATOR Inhaled Oxygen Concentration - - Weight 90.5 kg (199 lb 8 oz) 08/12/2024 2:58 PM CDT Height 179.1 cm (5' 10.5 ) 08/12/2024 2:58 PM CD T Body Mass Index 28.22 08/12/2024 2:58 PM CDT Plan of Treatment Not on file Procedures Procedure Name Priority Date/Time Associated Diagnosis Comments MRI CERVICAL SPINE WO CONTRAST Schedule Routine, Read Routine (OP Routine) 08/18/2024 4:36 PM CDT Radiculopathy, cervical Periodic headache syndrome, not intractable MRI BRAIN WO CONTRAST Schedule Routine, Read Routine (OP Routine) 08/18/2024 4:26 PM CDT Radiculopathy, cervical Periodic headache syndrome, not intractable PROTEIN / CREATININE RATIO, URINE, RANDOM Routine 08/12/2024 5:13 PM CDT Rheumatoid arthritis, involving unspecified site, unspecified whether rheumatoid factor present (HCC) Systemic lupus erythematosus with other organ involvement, unspecified SLE type (HCC) Lupus arthritis (HCC) High risk medication use URINALYSIS, MICROSCOPIC ONLY Routine 08/12/2024 4:30 PM CDT Rheumatoid arthritis, involving unspecified site, unspecified whether rheumatoid factor present (HCC) Systemic lupus erythematosus with other organ involvement, unspecified SLE type (HCC) Lupus arthritis (HCC) High risk medication use URINALYSIS AND REFLEX TO MICROSCOPIC AND CULTURE Routine 08/12/2024 4:30 PM CDT Rheumatoid arthritis, involving unspecified site, unspecified whether rheumatoid factor present (HCC) Systemic lupus erythematosus with other organ involvement, unspecified SLE type (HCC) Lupus arthritis (HCC) High risk medication use EGFR Routine 08/12/2024 3:55 PM CDT Rheumatoid arthritis, involving unspecified site, unspecified whether rheumatoid factor present (HCC) Systemic lupus erythematosus with other organ involvement, unspecified SLE type (HCC) Lupus arthritis (HCC) High risk medication use COMPREHENSIVE METABOLIC PANEL Routine 08/12/2024 3:55 PM CDT Rheumatoid arthritis, involving unspecified site, unspecified whether rheumatoid factor present (HCC) Systemic lupus erythematosus with other organ involvement, unspecified SLE type (HCC) Lupus arthritis (HCC) High risk medication use ERYTHROCYTE SEDIMENTATION RATE Routine 08/12/2024 3:55 PM CDT Rheumatoid arthritis, involving unspecified site, unspecified whether rheumatoid factor present (HCC) Systemic lupus erythematosus with other organ involvement, unspecified SLE type (HCC) Lupus arthritis (HCC) High risk medication use CRP (ACUTE PHASE) Routine 08/12/2024 3:5 5 PM CDT Rheumatoid arthritis, involving unspecified site, unspecified whether rheumatoid factor present (HCC) Systemic lupus erythematosus with other organ involvement, unspecified SLE type (HCC) Lupus arthritis (HCC) High risk medication use C3 COMPLEMENT Routine 08/12/2024 3:55 PM CDT Rheumatoid arthritis, involving unspecified site, unspecified whether rheumatoid factor present (HCC) Systemic lupus erythematosus with other organ involvement, unspecified SLE type (HCC) Lupus arthritis (HCC) High risk medication use C4 COMPLEMENT Routine 08/12/2024 3:55 PM CDT Rheumatoid arthritis, involving unspecified site, unspecified whether rheumatoid factor present (HCC) Systemic lupus erythematosus with other organ involvement, unspecified SLE type (HCC) Lupus arthritis (HCC) High risk medication use ANTI-DOUBLE STRANDED DNA ANTIBODIES Routine 08/12/2024 3:55 PM CDT Rheumatoid arthritis, involving unspecified site, unspecified whether rheumatoid factor present (HCC) Systemic lupus erythematosus with other organ involvement, unspecified SLE type (HCC) Lupus arthritis (HCC) High risk medication use POCT URINALYSIS DIPSTICK Routine 06/29/2024 3:40 PM HOSPITAL EDUCATION COORDINATOR Acute cystitis without hematuria URINE CULTURE Routine 06/29/2024 3:17 PM HOSPITAL EDUCATION COORDINATOR Acute cystitis without hematuria from Last 3 Months Results * MRI Cervical Spine WO Contrast (08/18/2024 4:36 PM CDT) Anatomical Region Laterality Modality Spine N/A Magnetic Resonan ce 08/19/2024 11:1 0 AM CDT Narrative 08/19/2024 11:18 AM CDT EXAM DESCRIPTION: MRI BRAIN WO CONTRAST; MRI CERVICAL SPINE WO CONTRAST REASON FOR STUDY: Nontraumatic constellation of symptoms to include headaches, swelling to left side of face and neck, and left-sided neck pain of unspecified duration, noting headaches becoming more frequent, approximately 3 times per week, over unspecified duration of exacerbation. No provided focal neurologic deficits. No provided history of inciting and/or aggravating events. History of lupus. No provided surgical history. TECHNIQUE: MRI BRAIN: Multiplanar imaging includes non-contrasted T1, T2, FLAIR, and diffusion with ADC map sequences. Additional sequence(s) sensitive to blood products. MRI CERVICAL SPINE: Sagittal and Axial imaging includes T1, T2, STIR and gradient echo sequences. Images stored on PACS. COMPARISON: No prior relevant imaging available at time of interpretation. FINDINGS: MRI BRAIN: CEREBRUM: No hemorrhage, edema, or mass effect. WHITE MATTER: Unremarkable. POSTERIOR FOSSA: Brainstem and cerebellum are unremarkable. DIFFUSION IMAGING: No restricted diffusion to suggest acute/subacute ischemia or infarct. EXTRAAXIAL SPACES: No extra-axial fluid collection. No extra-axial mass. BRAIN VOLUME: Within normal limits for age. PITUITARY: Unremarkable. VASCULATURE: No flow disturbance evident. CALVARIUM: Unremarkable. ORBITS: No acute abnormality. [place] ocular lenses replaced bilaterally. PARANASAL SINUSES AND MASTOIDS: Tiny left-directed bony nasal septal spur. No significant mucosal thickening and no fluid levels of the paranasal sinuses. Mastoid air cells well aerated. OTHER: No other significant finding. MRI CERVICAL SPINE: ALIGNMENT: Normal. VERTEBRAE: No MR evidence of acute-subacute fracture. Vertebral body heights maintained. Spondylosis. Marrow signal within normal limits. DISCS: Multilevel variable intervertebral disc desiccation and loss of intervertebral disc height of the visualized cervicothoracic spine. HARDWARE: None in the cervical spine. CORD: Normal in size and signal intensity. INDIVIDUAL LEVELS: C1-C2: No spinal canal stenosis. C2-C3: Small shallow central disc protrusion slightly indenting the ventral thecal sac. Bilateral hypertrophic facet arthropathy. No spinal canal stenosis. No significant neural foraminal stenosis C3-C4: No diffuse disc bulge or focal herniation. Bilateral hypertrophic facet arthropathy. Bilateral uncovertebral joint disease. No spinal canal stenosis. No high-grade neural foraminal stenosis. C4-C5: Mild posterior disc osteophyte complex eccentric to the left slightly indenting the left eccentric ventral thecal sac. Bilateral hypertrophic facet arthropathy. Bilateral uncovertebral joint disease. No spinal canal stenosis. Left neural foraminal stenosis. C5-C6: Mild posterior disc osteophyte complex slightly indenting the ventral thecal sac. Bilateral hypertrophic facet arthropathy. Bilateral uncovertebral joint disease. No spinal canal stenosis. No significant neural foraminal stenosis. C6-C7: Posterior disc osteophyte complex indenting the ventral thecal sac. Bilateral facet arthropathy. Bilateral uncovertebral joint disease. No spinal canal stenosis. Bilateral neural foraminal stenosis. C7-T1: Tiny shallow central disc protrusion slightly indenting the ventral thecal sac. Bilateral facet arthropathy. No spinal canal stenosis. No significant neural foraminal stenosis. UPPER THORACIC: Incompletely imaged. No significant spinal stenosis or foraminal stenosis. OTHER: No other significant finding. IMPRESSION: 1. No acute intracranial process. 2. Spondylosis and degenerative disc disease of the cervical spine as detailed level by level above. THIS IS AN ELECTRONICALLY VERIFIED FINAL REPORT 08/19/2024 11:18 AM - Electronically signed by Brendon Landaverde M.D. KYA: KYA Report ID: [id number] Reading Location: [id number] Procedure Note Brendon Landaverde MD - 08/19/2024 EXAM DESCRIPTION: MRI BRAIN WO CONTRAST; MRI CERVICAL SPINE WO CONTRAST REASON FOR STUDY: Nontraumatic constellation of symptoms to includeheadaches, swelling to left side of face and neck, and left-sided neck pain of unspecified duration, noting headaches becoming more frequent,approximately 3 times per week, over unspecified duration of exacerbation. No providedfocal neurologic deficits. No provided history of inciting and/or aggravating events. History of lupus. No provided surgical history. TECHNIQUE: MRI BRAIN: Multiplanar imaging includes non-contrasted T1, T2, FLAIR, and diffusion with ADC map sequences. Additional sequence(s)sensitive to blood products. MRI CERVICAL SPINE: Sagittal and Axial imaging includes T1, T2, STIR and gradient echo sequences. Images stored on PACS. COMPARISON: No prior relevant imaging available at time ofinterpretation. FINDINGS: MRI BRAIN: CEREBRUM: No hemorrhage, edema, or mass effect. WHITE MATTER: Unremarkable. POSTERIOR FOSSA: Brainstem and cerebellum are unremarkable. DIFFUSION IMAGING: No restricted diffusion to suggest acute/subacute ischemia or infarct. EXTRAAXIAL SPACES: No extra-axial fluid collection. No extra-axial mass. BRAIN VOLUME: Within normal limits for age. PITUITARY: Unremarkable. VASCULATURE: No flow disturbance evident. CALVARIUM: Unremarkable. ORBITS: No acute abnormality. [place] ocular lenses replaced bilaterally. PARANASAL SINUSES AND MASTOIDS: Tiny left-directed bony nasal septalspur. No significant mucosal thickening and no fluid levels of the paranasal sinuses. Mastoid air cells well aerated. OTHER: No other significant finding. MRI CERVICAL SPINE: ALIGNMENT: Normal. VERTEBRAE: No MR evidence of acute-subacute fracture. Vertebral body heights maintained. Spondylosis. Marrow signal within normal limits. DISCS: Multilevel variable intervertebral disc desiccation and loss of intervertebral disc height of the visualized cervicothoracic spine. HARDWARE: None in the cervical spine. CORD: Normal in size and signal intensity. INDIVIDUAL LEVELS: C1-C2: No spinal canal stenosis. C2-C3: Small shallow central disc protrusion slightly indenting theventral thecal sac. Bilateral hypertrophic facet arthropathy. No spinal canal stenosis. No significant neural foraminal stenosis C3-C4: No diffuse disc bulge or focal herniation. Bilateralhypertrophic facet arthropathy. Bilateral uncovertebral joint disease. No spinalcanal stenosis. No high-grade neural foraminal stenosis. C4-C5: Mild posterior disc osteophyte complex eccentric to the leftslightly indenting the left eccentric ventral thecal sac. Bilateral hypertrophicfacet arthropathy. Bilateral uncovertebral joint disease. No spinal canal stenosis. Left neural foraminal stenosis. C5-C6: Mild posterior disc osteophyte complex slightly indenting theventral thecal sac. Bilateral hypertrophic facet arthropathy. Bilateral uncovertebral joint disease. No spinal canal stenosis. No significantneural foraminal stenosis. C6-C7: Posterior disc osteophyte complex indenting the ventral thecalsac. Bilateral facet arthropathy. Bilateral uncovertebral joint disease. No spinal canal stenosis. Bilateral neural foraminal stenosis. C7-T1: Tiny shallow central disc protrusion slightly indenting theventral thecal sac. Bilateral facet arthropathy. No spinal canal stenosis. No significant neural foraminal stenosis. UPPER THORACIC: Incompletely imaged. No significant spinal stenosis or foraminal stenosis. OTHER: No other significant finding. IMPRESSION: 1. No acute intracranial process. 2. Spondylosis and degenerative disc disease of the cervical spine as detailed level by level above. THIS IS AN ELECTRONICALLY VERIFIED FINAL REPORT 08/19/2024 11:18 AM - Electronically signed by Brendon Landaverde M.D. KYA: KYA Report ID: [id number] Reading Location: [id number] Jess Mendenhall MD IMG MRI PROCEDURES Fi nal Result * MRI Brain WO Contrast (08/18/2024 4:26 PM CDT) Anatomical Region Laterality Modality Head and Neck N/A Magnetic Resonan ce 08/19/2024 11:1 0 AM CDT Narrative 08/19/2024 11:18 AM CDT EXAM DESCRIPTION: MRI BRAIN WO CONTRAST; MRI CERVICAL SPINE WO CONTRAST REASON FOR STUDY: Nontraumatic constellation of symptoms to include headaches, swelling to left side of face and neck, and left-sided neck pain of unspecified duration, noting headaches becoming more frequent, approximately 3 times per week, over unspecified duration of exacerbation. No provided focal neurologic deficits. No provided history of inciting and/or aggravating events. History of lupus. No provided surgical history. TECHNIQUE: MRI BRAIN: Multiplanar imaging includes non-contrasted T1, T2, FLAIR, and diffusion with ADC map sequences. Additional sequence(s) sensitive to blood products. MRI CERVICAL SPINE: Sagittal and Axial imaging includes T1, T2, STIR and gradient echo sequences. Images stored on PACS. COMPARISON: No prior relevant imaging available at time of interpretation. FINDINGS: MRI BRAIN: CEREBRUM: No hemorrhage, edema, or mass effect. WHITE MATTER: Unremarkable. POSTERIOR FOSSA: Brainstem and cerebellum are unremarkable. DIFFUSION IMAGING: No restricted diffusion to suggest acute/subacute ischemia or infarct. EXTRAAXIAL SPACES: No extra-axial fluid collection. No extra-axial mass. BRAIN VOLUME: Within normal limits for age. PITUITARY: Unremarkable. VASCULATURE: No flow disturbance evident. CALVARIUM: Unremarkable. ORBITS: No acute abnormality. [place] ocular lenses replaced bilaterally. PARANASAL SINUSES AND MASTOIDS: Tiny left-directed bony nasal septal spur. No significant mucosal thickening and no fluid levels of the paranasal sinuses. Mastoid air cells well aerated. OTHER: No other significant finding. MRI CERVICAL SPINE: ALIGNMENT: Normal. VERTEBRAE: No MR evidence of acute-subacute fracture. Vertebral body heights maintained. Spondylosis. Marrow signal within normal limits. DISCS: Multilevel variable intervertebral disc desiccation and loss of intervertebral disc height of the visualized cervicothoracic spine. HARDWARE: None in the cervical spine. CORD: Normal in size and signal intensity. INDIVIDUAL LEVELS: C1-C2: No spinal canal stenosis. C2-C3: Small shallow central disc protrusion slightly indenting the ventral thecal sac. Bilateral hypertrophic facet arthropathy. No spinal canal stenosis. No significant neural foraminal stenosis C3-C4: No diffuse disc bulge or focal herniation. Bilateral hypertrophic facet arthropathy. Bilateral uncovertebral joint disease. No spinal canal stenosis. No high-grade neural foraminal stenosis. C4-C5: Mild posterior disc osteophyte complex eccentric to the left slightly indenting the left eccentric ventral thecal sac. Bilateral hypertrophic facet arthropathy. Bilateral uncovertebral joint disease. No spinal canal stenosis. Left neural foraminal stenosis. C5-C6: Mild posterior disc osteophyte complex slightly indenting the ventral thecal sac. Bilateral hypertrophic facet arthropathy. Bilateral uncovertebral joint disease. No spinal canal stenosis. No significant neural foraminal stenosis. C6-C7: Posterior disc osteophyte complex indenting the ventral thecal sac. Bilateral facet arthropathy. Bilateral uncovertebral joint disease. No spinal canal stenosis. Bilateral neural foraminal stenosis. C7-T1: Tiny shallow central disc protrusion slightly indenting the ventral thecal sac. Bilateral facet arthropathy. No spinal canal stenosis. No significant neural foraminal stenosis. UPPER THORACIC: Incompletely imaged. No significant spinal stenosis or foraminal stenosis. OTHER: No other significant finding. IMPRESSION: 1. No acute intracranial process. 2. Spondylosis and degenerative disc disease of the cervical spine as detailed level by level above. THIS IS AN ELECTRONICALLY VERIFIED FINAL REPORT 08/19/2024 11:18 AM - Electronically signed by Brendon Landaverde M.D. KYA: KYA Report ID: [id number] Reading Location: [place] [address] Procedure Note Brendon Landaverde MD - 08/19/2024 EXAM DESCRIPTION: MRI BRAIN WO CONTRAST; MRI CERVICAL SPINE WO CONTRAST REASON FOR STUDY: Nontraumatic constellation of symptoms to includeheadaches, swelling to left side of face and neck, and left-sided neck pain of unspecified duration, noting headaches becoming more frequent,approximately 3 times per week, over unspecified duration of exacerbation. No providedfocal neurologic deficits. No provided history of inciting and/or aggravating events. History of lupus. No provided surgical history. TECHNIQUE: MRI BRAIN: Multiplanar imaging includes non-contrasted T1, T2, FLAIR, and diffusion with ADC map sequences. Additional sequence(s)sensitive to blood products. MRI CERVICAL SPINE: Sagittal and Axial imaging includes T1, T2, STIR and gradient echo sequences. Images stored on PACS. COMPARISON: No prior relevant imaging available at time ofinterpretation. FINDINGS: MRI BRAIN: CEREBRUM: No hemorrhage, edema, or mass effect. WHITE MATTER: Unremarkable. POSTERIOR FOSSA: Brainstem and cerebellum are unremarkable. DIFFUSION IMAGING: No restricted diffusion to suggest acute/subacute ischemia or infarct. EXTRAAXIAL SPACES: No extra-axial fluid collection. No extra-axial mass. BRAIN VOLUME: Within normal limits for age. PITUITARY: Unremarkable. VASCULATURE: No flow disturbance evident. CALVARIUM: Unremarkable. ORBITS: No acute abnormality. [place] ocular lenses replaced bilaterally. PARANASAL SINUSES AND MASTOIDS: Tiny left-directed bony nasal septalspur. No significant mucosal thickening and no fluid levels of the paranasal sinuses. Mastoid air cells well aerated. OTHER: No other significant finding. MRI CERVICAL SPINE: ALIGNMENT: Normal. VERTEBRAE: No MR evidence of acute-subacute fracture. Vertebral body heights maintained. Spondylosis. Marrow signal within normal limits. DISCS: Multilevel variable intervertebral disc desiccation and loss of intervertebral disc height of the visualized cervicothoracic spine. HARDWARE: None in the cervical spine. CORD: Normal in size and signal intensity. INDIVIDUAL LEVELS: C1-C2: No spinal canal stenosis. C2-C3: Small shallow central disc protrusion slightly indenting theventral thecal sac. Bilateral hypertrophic facet arthropathy. No spinal canal stenosis. No significant neural foraminal stenosis C3-C4: No diffuse disc bulge or focal herniation. Bilateralhypertrophic facet arthropathy. Bilateral uncovertebral joint disease. No spinalcanal stenosis. No high-grade neural foraminal stenosis. C4-C5: Mild posterior disc osteophyte complex eccentric to the leftslightly indenting the left eccentric ventral thecal sac. Bilateral hypertrophicfacet arthropathy. Bilateral uncovertebral joint disease. No spinal canal stenosis. Left neural foraminal stenosis. C5-C6: Mild posterior disc osteophyte complex slightly indenting theventral thecal sac. Bilateral hypertrophic facet arthropathy. Bilateral uncovertebral joint disease. No spinal canal stenosis. No significantneural foraminal stenosis. C6-C7: Posterior disc osteophyte complex indenting the ventral thecalsac. Bilateral facet arthropathy. Bilateral uncovertebral joint disease. No spinal canal stenosis. Bilateral neural foraminal stenosis. C7-T1: Tiny shallow central disc protrusion slightly indenting theventral thecal sac. Bilateral facet arthropathy. No spinal canal stenosis. No significant neural foraminal stenosis. UPPER THORACIC: Incompletely imaged. No significant spinal stenosis or foraminal stenosis. OTHER: No other significant finding. IMPRESSION: 1. No acute intracranial process. 2. Spondylosis and degenerative disc disease of the cervical spine as detailed level by level above. THIS IS AN ELECTRONICALLY VERIFIED FINAL REPORT 08/19/2024 11:18 AM - Electronically signed by Brendon Landaverde M.D. KYA: KYA Report ID: [id number] Reading Location: [place] [address] Jess Mendenhall MD IMG MRI PROCEDURES Fi nal Result * Protein / creatinine ratio, urine, random (08/12/2024 5:13 PM CDT) Protein, ur, quant 33.1 mg/dL Comment: Interpretive Data No reference range established. Current interpretive data was last revised 2018. Testing performed by: [facility], [address] [place] [address] Creatinine Ur 311.9 mg/dL JEWEL RAPP Comment: Interpretive Data No reference range established. Current interpretive data was last revised 2018. Testing performed by: [facility], [address] [place] [address] Protein/creatinin e ratio 106.1 0.0 - 180.0 mg/g CR JEWEL RAPP Comment:Testing performed by : [facility], [address], [place] [address] Urine 08/12/2024 5:13 PM CDT 08/12/2024 5:14 PM CDT us Kerrie Lyles MD LAB URINE ORDERABLES Final Result BRENDON[facility]SE TAMELA [address] [place] [address] * (ABNORMAL) Urinalysis reflex to microscopic and culture Urine, clean voided (08/12/2024 4:30 PM CDT) Color, ur Yellow Yellow Comment:Testing performed by : [facility], [address], [place] [address] Clarity, ur Cloudy(A) Clear JEWEL RAPP Comment:Testing performed by : [facility], [address], [place] [address] Specific gravity, ur 1.025 1.003 - 1.030 JEWEL RAPP Comment:Testing performed by : [facility], [address], [place] [address] pH, urine 5.5 JEWEL RAPP Comment: Interpretive Data U rine pH is affected by diet, medications, systemic acid-base disturbances, and renal tubular function. pH may affect urinary stone formation. For example, urine pH below 6.0 may help reduce the tendency for calcium phosphate stones and pH greater than 6.0 may reduce the tendency for uric acid stone formation. Source: [employer] Current Interpretive Data was last revised on 2017 Testing performed by: [facility], [address], [place] [address] Protein, ur ql 1+(A) Negative JEWEL RAPP Comment:Testing performed by : [facility], [address], [place] [address] Glucose, ur ql Negative Negative JEWEL RAPP Comment:Testing performed by : [facility], [address], [place] [address] Ketones, ur Negative Negative CERNER BJWCH Comment:Testing performed by : [facility], [address], [place] [address] Bilirubin, ur Negative Negative CERNER BJWCH Comment:Testing performed by : [facility], [address], [place] [address] Blood, ur Negative Negative CERNER BJWCH Comment:Testing performed by : [facility], [address], [place] [address] Urobilinogen, ur 2.0(A) <2.0 mg/dL CERNER BJWCH Comment:Testing performed by : [facility], [address], [place] [address] Nitrite, ur Negative Negative CERNER BJWCH Comment:Testing performed by : [facility], [address], [place] [address] Leukocyte esterase, ur Negative Negative CERNER BJWCH Comment:Testing performed by : [facility], [address], [place] [address] UA reflex comment Reflex to microscopic UA will be performed. JEWEL BJWCH Comment:Testing performed by : [facility], [address], [place] [address] Urine, clean voided 08/12/2024 4:30 PM CDT 08/12/2024 5:14 PM CDT us Kerrie Lyles MD LAB MICROBIOLOGY - GENERAL ORDERABLES Final Result JEWEL NAIKWCH [address] Department [place] [address] * (ABNORMAL) Urinalysis, microscopic only (08/12/2024 4:30 PM CDT) WBC, ur 0-5 0 - 5 /HPF Comment:Testing performed by : [facility], [address], [place] [address] RBC, ur 0-2 0 - 2 /HPF JEWEL RAPP Comment:Testing performed by : [facility], [address], [place] [address] Epithelial cells, squamous, ur 1-5 0 - 5 /HPF JEWEL RAPP Comment:Testing performed by : [facility], [address], [place] [address] Mucous, ur Present(A) JEWEL RAPP Comment:Testing performed by : [facility], [address], [place] [address] Calcium oxalate crystals, ur 4+(A) JEWEL RAPP Comment:Testing performed by : [facility], [address], [place] [address] Hyaline casts, ur >50(A) 0 - 10 /LPF JEWEL RAPP Comment:Testing performed by : [facility], [address], [place] [address] Culture Reflex Comment Reflex conditions for urine culture (WBC >10) not met. JEWEL RAPP Comment:Testing performed by : [facility], [address], [place] [address] Urine, clean voided 08/12/2024 4:30 PM CDT 08/12/2024 5:14 PM CDT us Kerrie Lyles MD LAB URINE ORDERABLES Final Result [facility] [address] [place] [address] * Anti-double stranded DNA abs (08/12/2024 3:55 PM CDT) dsDNA Ab 2.0 <=4.0 IUnits/mL Comment: Interpretive Data Negative: < or = 4 IUnits/mL Indeterminate: 5 - 9 IUnits/mL Positive: > or = 10 IUnits/mL Current interpretive data was last revised on 2016. Testing performed by: [facility], [address] [place]., [address] Blood 08/12/2024 3:55 PM CDT 08/12/2024 6:28 PM CDT Kerrie Lyles MD LAB BLOOD ORDERABLES Final Result Performing Organization Address [facility] Co de Phone Number JEWEL MCDANIEL [address] [facility]. [facility] [place] [address] * eGFR (08/12/2024 3:55 PM CDT) eGFR 67 >=60 mL/min/1. 73 m2 Comment: Interpretive Data Reference Interval Normal >/= 90 mL/min/1.73m2 Mildly decreased* 60 - 89 mL/min/1.73m2 Mildly to moderately decreased 45 - 59 mL/min/1.73m2 Moderately to severely decreased 30 - 44 mL/min/1.73m2 Severely decreased 15 - 29 mL/min/1.73m2 Kidney Failure < 15 mL/min/1.73m2 *Relative to young adult level Estimated glomerular filtration rate is determined by the 2020 CKD-EPI equation recommended by the National Kidney Foundation (A Unifying Approach to GFR Estimation: Recommendations of the NKF-ASK Task Force on Reassessing the Inclusion of Race in Diagnosing Kidney Disease, JASN 2020). The CKD-EPI equation should not be used for patients with unstable renal function and has not been validated in children and those over 70. Current interpretive data was last reviewed 2021. Testing performed by: [facility], [address] [facility], [place] [address] Blood 08/12/2024 3:55 PM CDT 08/12/2024 4:31 PM CDT us Kerrie Lyles MD LAB BLOOD ORDERABLES Final Result Performing Organization Address [facility] Co de Phone Number JEWEL NAIKWCH [address] [facility]. [facility] [place] [address] * C4 complement (08/12/2024 3:55 PM CDT) Complement C4 19 10 - 40 mg/dL Comment:Testing performed by : [facility], [address] [place] [address]., [address] Blood 08/12/2024 3:55 PM CDT 08/12/2024 7:28 PM CDT Kerrie Lyles MD LAB BLOOD ORDERABLES Final Result JEWEL [facility] [address] [facility]. [facility] [place] [address] * Erythrocyte sedimentation rate (08/12/2024 3:55 PM CDT) Pathologist [facility] Erythrocyte sedimentation rate 13 1 - 30 mm/hr Comment:Testing performed by : [facility], [address] [place] [address] Blood 08/12/2024 3:55 PM CDT 08/12/2024 4:31 PM CDT Kerrie Lyles MD LAB BLOOD ORDERABLES Final Result Performing Organization Address [facility] Co de Phone Number JEWEL [facility] [address] [address] [facility]. [place] [address] * C3 complement (08/12/2024 3:55 PM CDT) Complement C3 128 90 - 180 mg/dL Comment:Testing performed by : [facility], [address] [place] [address]., [address] Blood 08/12/2024 3:55 PM CDT 08/12/2024 7:28 PM CDT Kerrie Lyles MD LAB BLOOD ORDERABLES Final Result Performing Organization Address City/[facility]/ZIP Co de Phone Number JEWEL BJWCH [address] [address] [facility]. [facility] [place] [address] * CRP (acute phase) (08/12/2024 3:55 PM CDT) CRP <3.0 <=10.0 mg/L Comment:Testing performed by : [facility], [address] [place] [address] Blood 08/12/2024 3:55 PM CDT 08/12/2024 4:31 PM CDT us Kerrie Lyles MD LAB BLOOD ORDERABLES Final Result [facility] [address] Department [place] [address] * Comprehensive metabolic panel (08/12/2024 3:55 PM CDT) Pathologist [facility] Sodium 141 135 - 145 mmol/L Comment:Testing performed by : [facility], [address] [place] [address] Potassium, pl 3.8 3.3 - 4.9 mmol/L CERNER BJWCH Comment:Testing performed by : [facility], [address], [place] [address] Chloride 107 97 - 110 mmol/L CERNER BJWCH Comment:Testing performed by : [facility], [address], [place] [address] CO2 22 22 - 32 mmol/L CERNER BJWCH Comment:Testing performed by : [facility], [address], [place] [address] Anion gap 12 2 - 15 mmol/L CERNER BJWCH Comment:Testing performed by : [facility], [address], [place] [address] BUN 16 6 - 25 mg/dL CERNER BJWCH Comment:Testing performed by : [facility], [address], [place] [address] Creatinine 1.01 0.60 - 1.10 mg/dL CERNER BJWCH Comment:Testing performed by : [facility], [address] [place] [address] Glucose 89 70 - 199 mg/dL CERNER BJWCH Comment: Interpretive Data Fasting glucose >/= 126 mg/dl is diagnostic for diabetes. Fasting is defined as no caloric intake for at least 8 hours. Fasting glucose between 100 mg/dl to 125 mg/dl is diagnostic of prediabetes. In a patient with classic symptoms of hyperglycemia or hyperglycemic crisis, a random glucose >/= 200 mg/dl is diagnostic for diabetes. In the absence of unequivocal hyperglycemia, results should be confirmed by repeat testing. The classification and Diagnosis of Diabetes Diabetes Care 2021; 46: S19-S40. Current interpretive data was last revised 2022. Testing performed by: [facility], [address], [place] [address] Calcium 10.0 8.5 - 10.3 mg/dL CERNER BJWCH Comment:Testing performed by : [facility], [address], [place] [address] Bilirubin, total 0.3 0.1 - 1.2 mg/dL CERNER BJWCH Comment:Testing performed by : [facility], [address], [place] [address] Protein, pl 7.7 6.5 - 8.5 g/dL CERNER BJWCH Comment:Testing performed by : [facility], [address], [place] [address] Albumin 4.6 3.5 - 5.0 g/dL CERNER BJWCH Comment:Testing performed by : [facility], [address], [place] [address] Alk phos 86 40 - 130 Units/L CERNER BJWCH Comment:Testing performed by : [facility], [address], [place] [address] ALT 15 7 - 45 Units/L CERNER BJWCH Comment:Testing performed by : [facility], [address], [place] [address] AST 19 10 - 45 Units/L CERNER BJWCH Comment:Testing performed by : [facility], [address] [place] [address] Blood 08/12/2024 3:55 PM CDT 08/12/2024 4:31 PM CDT Result [facility] Kerrie Lyles MD LAB BLOOD ORDERABLES Final Result JEWEL BJWCH [address] [facility] [place] [address] * (ABNORMAL) POCT urinalysis dipstick (06/29/2024 3:40 PM HOSPITAL EDUCATION COORDINATOR) Color, Urine, POC Yellow Clarity, ur, POC Clear Clear Glucose, ur, POC Negative Negative MG/DL Bilirubin, ur, POC Negative Negative, Small, Moderate, Large Ketones, ur, POC Negative Negative Specific [place], POC 1.015 1.003 - 1.030 Blood, ur, POC Negative Negative pH, ur, POC 6.0 5.0 - 8.0 Protein, ur, POC Negative Negative Urobilinogen, urine, POC 0.2 0.2 - 1.0 mg/dL Nitrite, ur, POC Positive(A) Negative Leukocytes, ur, POC Negative Negative Lot Number [id number] Urine 06/29/2024 3:40 PM HOSPITAL EDUCATION COORDINATOR Result [facility] Lissette Mendoza NP POINT OF CARE TEST ORDERABLES Final Result * Urine culture Urine, clean voided (06/29/2024 3:17 PM HOSPITAL EDUCATION COORDINATOR) Report Final Report: Less than 100,000 colonies/mL (clinically insignificant growth based on current clinical standards) Comment:Testing performed by : [facility], [address] [place]., [address] Organism (CLINICALLY INSIGNIFICANT GROWTH JEWEL AKERS Urine, clean voided 06/29/2024 3:17 PM HOSPITAL EDUCATION COORDINATOR 06/30/2024 12:36 AM HOSPITAL EDUCATION COORDINATOR Narrative JEWEL AKERS - 07/01/2024 7:52 AM HOSPITAL EDUCATION COORDINATOR Testing performed by [facility] Microbiology Laboratory ([phone]) Result [facility] Lissette Mendoza NP LAB MICROBIOLOGY - GENERAL ORD ERABLES Final Result JEWEL [address] Department [place] [address] from Last 3 Months Insurance MEDICARE MEDICARE [employer]IG[employer] OPEN ACCESS MEDICARE P2i OPEN ACCESS Care Teams Supervisor Properties Relationship Specialty Start Date End Date Josue Pearl PA [facility] [place] [address] PCP - General Internal Medicine 04/24/24 Reji Torres MD [address] [place] [address] Consulting Physician Rheumatology 05/18/21 Janiya Valencia MD [address] [place] [address] Consulting Physician Neurology 04/09/23
--- OUTSIDE RECORDS SUMMARY | 2024-09-16 13:17 | XMS_ITS | Clinical Summary ---
Author Organization [facility] Address [address] [place] [address] Care Team Providers Care Assembler Installer General Name Role Phone Suzanne Marques MD Primary Care Provider [phone] Source Comments [facility],[place]-[facility] Affiliates and Associated Physician Practices is amultiple site organization consisting of ambulatory clinics and hospital sitesin [place], [place], [place] and [place]. This disclosure is being madepursuant to the Care Everywhere program and may not contain all information available regarding this patient. Last updated 18.[facility] [employer] Allergies Active Allergy Reactions Criticality Noted Date Comments Lorazepam Palpitations 09/02/2012 Levofloxacin 09/02/2012 Ketorolac 09/02/2012 Medications * Be aware that medications may not be up to date on this document. Alwaysverify current medications with the patient. sertraline (ZOLOFT) 25 MG tablet Take 1 (one) tablet by mouth once daily Active levothyroxine (SYNTHROID) 137 MCG tablet Take 1 (one) tablet by mouth daily before breakfast Active rivaroxaban (XARELTO) 15 MG tablet Take 1 (one) tablet by mouth twice daily, before breakfast & at bedtime. Active acetaminophen (TYLENOL) 325 MG tablet Take 2 Tabs by mouth every 4 hours as needed for Fever or Pain. Maximum allowable Acetaminophen amount = 4 Grams (4000 mg) / 24 hours. 3 Active Additional Information Patient not taking.Reported on 09/25/2023 HYDROmorphone (Dilaudid) 2 MG tablet TK 1 T PO Q 4 H Acti ve hydrOXYzine HCl (Atarax) 25 MG tablet PLEASE SEE ATTACHED FOR DETAILED DIRECTIONS 4 Active ketoconazole (Nizoral) 2 % shampoo SHAMPOO TWICE WEEKLY TO SCALP 4 Active Vitamin D, Ergocalciferol , 02714 units CAPS 1 (one) capsule Acti ve cyclobenzaprin e (Flexeril) 5 MG tablet Active cyanocobalamin (Vitamin B-12) injection Patient states she only takes these as needed now 3 Active topiramate (Topamax) 200 MG tablet Take 1 (one) tablet by mouth once daily 4 Active temazepam (Restoril) 30 MG capsule TAKE 1 CAPSULE BY MOUTH EVERYDAY AT BEDTIME NEEDED 3 Active SUMAtriptan Succinate Refill 4 MG/0.5ML INJECT FOR HEADACHE DIRECTED FOR ONSET OF HEADACHE AND REPEAT IN 2 HOURS NEEDED. Active predniSONE (Deltasone) 10 MG tablet TAKE 1 TABLET BY MOUTH TWICE A DAY FOR CHRONIC PAIN 3 Active pantoprazole EC (Protonix) 40 MG tablet Take 1 (one) tablet by mouth 2 times daily 3 Active ondansetron (Zofran) 4 MG tablet TAKE 1 TABLET BY MOUTH EVERY 4 TO 6 HOURS NEEDED FOR NAUSEA 3 Active methotrexate 2.5 MG tablet TAKE 10 TABLETS BY MOUTH WEEKLY Active folic acid (Folvite) 1 MG tablet Take 5 (five) tablets by mouth once daily 3 Active Active Problems Problem Noted Date Diagnosed Date Chest pain 09/02/2012 Pulmonary embolism 09/02/2012 Social History Tobacco Use Types Packs/Day Years Used Date Smoking Tobacco: Never Tobacco Cessation:Counseling Given: Not Answered Alcohol Use Standard Drinks/Week Comments Not Currently 0 (1 standard drink = 0.6 oz pur e alcohol) Comments Unknown Sex and Gender Information Value Date Recorded Sex Assigned at Not on file Legal Sex Female 12:09 PM CDT Gender Identity Not on file Sexual Orientation Not on file Last Filed Vital Signs Vital Sign Reading Time Taken Comments Blood Pressure 108/82 09/25/2023 1:11 PM CDT Pulse 79 09/25/2023 1:11 PM CDT Temperature 36.6 C (97.9 F) 07/21/2013 1:47 PM DRUM OPERATOR Respiratory Rate 16 07/21/2013 1:47 PM DRUM OPERATOR Oxygen Saturation 98% 09/25/2023 1:11 PM CDT Inhaled Oxygen Concentration - - Weight 85.1 kg (187 lb 9.6 oz) 09/25/2023 1:11 P M CDT Height 177.8 cm (5' 10 ) 09/25/2023 1:11 PM CDT Body Mass Index 26.92 09/25/2023 1:11 PM CDT Plan of Treatment Health Maintenance Due Date Last Done Comments COLOGUARD (AGES 45-75) - COL ON CA SCREENING 1970 COLON MONITORING 1970 COLONOSCOPY - COLON CA SCREENING 1970 CT COLONOGRAPHY - COLON CA SCREENING 1970 Colorectal Cancer Screening 1970 FIT - COLON CA SCREENING 1970 FLEX SIG - COLON CA SCREENING 1970 LIPID TESTING 1970 MAMMOGRAM 1970 MEDICARE AWV 12 MONTHS 1970 PAP SMEAR 1970 HIV SCREENING 1985 HEPATITIS C SCREENING 10/20/1988 DTAP/TDAP/TD VACCINES (1 - Tdap) 1989 HEPATITIS B VACCINE (1 of 3 - 19+ 3-dose series) 1989 PNEUMOCOCCAL VACCINE 50+ (1 of 1 - PCV) 2020 ZOSTER VACCINE (1 of 2) 2020 SCREENING FOR DIABETES 09/25/2023 4, 09/03/2012, 09/02/2012 COVID-19 VACCINE (1 - 2023-2 5 season) 2024 DEPRESSION SCREENING 06/04/2024 INFLUENZA VACCINE (Season Ended) 2025 05/03/2016, 04/20/2015, 03/10/2015 HIB VACCINE Aged Out No longer eligi ble based on patient's age to complete this topic HPV VACCINE Aged Out No longer eligi ble based on patient's age to complete this topic MENINGOCOCCAL (Group B) VACCINE SHARED DECISION-MAKING Aged Out No longer eligible based on patient's age to complete this topic MENINGOCOCCAL GROUPS A/C/Y/W VACCINE Aged Out No longer eligible b ased on patient's age to complete this topic Procedures Procedure Name Priority Date/Time Associated Diagnosis Comments BASIC METABOLIC PANEL (CALCIUM TOTAL) STAT 07/21/2013 2:20 PM DRUM OPERATOR from Last 3 Months or Most Recently Relevant to Health Maintenance Results * (ABNORMAL) BASIC METABOLIC PANEL (CALCIUM TOTAL) (07/21/2013 2:20 PM DRUM OPERATOR) BUN 7 7 - 26 mg/dL [facility] Creatinine 0.7 0.6 - 1.2 mg/dL [facility] eGFR by MDRD > 60 ML/MIN [facility] Comment: Chronic kidney disease: <60 ml/min Kidney failure: <15 ml/min Based on BSA of 1.73m2. Sodium 142 136 - 145 mmol/L [facility] Potassium 3.4(L) 3.5 - 4.5 mmol/L [facility] Chloride 108(H) 98 - 107 mmol/L [facility] CO2 20(L) 22 - 29 mmol/L [facility] Glucose 97 70 - 115 mg/dL [facility] Calcium 9.8 8.4 - 10.2 mg/dL [facility] Anion Gap 17 8 - 18 [facility] BUN/Creatinine Ratio 10 7 - 23 [facility] Osmolality Calculation 276 270 - 300 mOsm/kg [facility] Blood specimen (specimen) 07/21/2013 2:20 PM DRUM OPERATOR 07/21/2013 2:23 PM DRUM OPERATOR Narrative [facility] - 07/21/2013 2:48 PM DRUM OPERATOR IS PATIENT ON HEPARIN? (Y OR N) N Carter Lizama DO LAB - CHEMISTRY ORDERABLES F inal Result [address] [phone] from Last 3 Months or Most Recently Relevant to Health Maintenance Insurance [facility]IC[facility] MEDICARE MEDICARE [facility]ICARE [facility] MEDICARE MEDICARE Member Subscriber Plan / Payer (Ef fective for All Dates) Name:Pretty Thompson Ruel Member ID:Not on file Relation to Subscriber:Self Name:Pretty Thompson Subscriber ID:Not on file Payer ID:Not on file Group ID:Not on file Type:Medicare Address: [place] [phone] MEDICARE Member Subscriber Plan / Payer (Ef fective for All Dates) Name:Dylan Thompsonannita Castillo Member ID:Not on file Relation to Subscriber:Self Name:Pretty Thompson Subscriber ID:Not on file Payer ID:Not on file Group ID:Not on file Type:Medicare Address: [place] [phone] Advance Directives * FULL RESUSCITATION (Latest Code Status on File) Date Activated Date Inactivated Comments 09/02/2012 6:55 PM 09/04/2012 3:19 PM Care Teams Assembler Installer General Relationship Specialty Start Date End Date Suzanne Marques MD [facility] [place] [address] PCP - General Family Medicine 09/02/12
--- OUTSIDE RECORDS SUMMARY | 2024-09-16 13:17 | XMS_ITS | Clinical Summary ---
Author Organization [facility] Address [address] [place] [address] Phone Care Team Providers Care Mail Machine Operator Name Role Phone Anni External Provider Primary Care Provider Un available Allergies Active Allergy Reactions Criticality Noted Date Comments Ketorolac Tromethamine Rash Low 09/09/2015 Levofloxacin Nausea and Vomiting Low 09/09/2015 Prochlorperazine Maleate Anxiety Low 10/26/2015 Medications levothyroxine 112 mcg tablet Take 112 mcg by mouth daily senior merchandiser. Active simvastatin (ZOCOR) 20 mg tablet Take 20 mg by mouth daily at bedtime. Active zolpidem (AMBIEN) 10 mg tablet Take 10 mg by mouth daily at bedtime. Active escitalopram oxalate (LEXAPRO) 10 mg tablet Take 10 mg by mouth daily. Active methotrexate (RHEUMATREX) 2.5 mg Tablet Take 2.5 mg by mouth every 7 days 10 tabs weekly . Active adalimumab (HUMIRA) 40 mg/0.8 mL Syringe Kit Inject by subcutaneous injection every 7 days. Active SUMAtriptan (IMITREX) 4 mg/0.5 mL Cartridge Inject 4 mg by subcutaneous injection 1 time daily as needed for Headaches may repeat after 1 hour; max dose 12mg in 24 hours . Active gabapentin (NEURONTIN) 600 mg tablet Take 600 mg by mouth daily at bedtime. Active omeprazole (PRILOSEC) 20 mg Capsule, Delayed Release(E.C.) Take 20 mg by mouth daily. Active gabapentin (NEURONTIN) 300 mg capsule Take 300 mg by mouth daily. Active ondansetron (ZOFRAN ODT) 4 mg Tablet, Rapid Dissolve Place 1 Tablet (4 mg) under tongue every 6 hours as needed for Nausea or Nausea/Emesis. 10 Tablet 0 6 Active Active Problems Problem Noted Date Diagnosed Date Hypokalemia 10/27/2015 Elevated serum creatinine 10/27/2015 Non-intractable vomiting with nausea 10/26/2015 Acquired hypothyroidism 2015 Gastroesophageal reflux disease without esophagi tis 2015 Fibromyalgia 2015 Hyperlipidemia 2015 Seizure disorder 2015 Mixed hyperlipidemia Immunizations Immunization Administration Dates Next Due Influenza Seasonal Unspecified Formulation IM Family History Medical History Relation Name Comments Unknown Father Osteoporosis Mother Thyroid Disease Mother Relation Name Status Comments Father Alive Mother Alive Social History Tobacco Use Types Packs/Day Years Used Date Smoking Tobacco: Never Alcohol Use Standard Drinks/Week Comments Yes 0 (1 standard drink = 0.6 oz pur e alcohol) 1/year Comments No Sex and Gender Information Value Date Recorded Sex Assigned at Not on file Legal Sex Female 2:32 PM CDT Gender Identity Not on file Sexual Orientation Not on file Last Filed Vital Signs Vital Sign Reading Time Taken Comments Blood Pressure 134/78 10/27/2015 7:00 AM CDT Pulse 78 10/27/2015 7:00 AM CDT Temperature 36.9 C (98.4 F) 10/27/2015 7:00 AM CDT Respiratory Rate 18 10/27/2015 7:00 AM CDT Oxygen Saturation 95% 10/27/2015 7:00 AM CDT Inhaled Oxygen Concentration - - Weight 108.6 kg (239 lb 6.7 oz) 10/27/2015 4:00 AM CDT Height 177.8 cm (5' 10 ) 10/26/2015 5:20 PM CDT Body Mass Index 34.35 10/26/2015 5:20 PM CDT Plan of Treatment Health Maintenance Due Date Last Done Comments DTAP/TDAP/TD VACCINES (1 - Tdap) 1989 HEPATITIS B VACCINES (1 of 3 - 19+ 3-dose series) 10/03 HPV/Cotest (21-29) 10/26/1991 PAP SMEAR 10/26/1991 CERVICAL CANCER SCREENING 2000 HPV/Cotest (30-65) 2000 PAP SMEAR 2000 BREAST CANCER SCREENING 2010 COLORECTAL SCREENING 10/26/2015 Colorectal Cancer Screening 10/26/2015 FIT-DNA Q 3 years 10/26/2015 FIT/FOBT Q 1 year 10/26/2015 Flex Sig/CT Colonography Q 5 years 10/26/2015 ZOSTER VACCINE (1 of 2) 2020 INFLUENZA VACCINE (#1) 2024 03/10/2015 Medical Devices Implanted Type Area Name Plate Stamping Machine Operator Device Identifier Shelf Expiration Date Model / Serial / Lot Seamguard Bio 60 [id number] - [id number] Implanted:Qty: 5 on 2015 by Aquiles Grey MD at [facility] N/A: Stomach [employer] 07/04/2018 [id number] / / [id number] Insurance Advance Directives For more information, please contact: [phone] * Full Code (Latest Code Status on File) Date Activated Date Inactivated Comments 2015 11:02 AM 10/27/2015 8:29 PM * Full Code Date Activated Date Inactivated Comments 2015 5:37 AM 2015 11:02 AM * Full Code Date Activated Date Inactivated Comments 10/15/2015 7:52 AM 10/15/2015 11:08 AM * Full Code Date Activated Date Inactivated Comments 10/15/2015 7:30 AM 10/15/2015 7:52 AM * Full Code Date Activated Date Inactivated Comments 09/10/2015 9:19 AM 09/10/2015 12:41 PM Care Teams Mail Machine Operator Relationship Specialty Start Date End Date Anni, External Provider PCP - General 08/31/15
--- OUTSIDE RECORDS SUMMARY | 2024-09-16 13:17 | XMS_ITS | Clinical Summary ---
Author Organization [facility] [address] [place] [address] Care Team Providers Care Wad Compressor Operator Adjuster Name Role Phone Reji Torres MD Unavailable [phone] Janiya Valencia MD Unavailable [phone] Josue Pearl Primary Care Provider + Allergies Active Allergy Reactions Criticality Noted Date [...] CHRONIC WEIGHT LOSS 01/05/20 23 Active Ca-D3-mag tc-crpw-ogv-nessa- bor 600 mg calcium- 20 mcg-50 mg tablet Take by mouth Active multivitamin tabletIndications :Vitamin Deficiency Prevention Take 1 tablet by mouth Active calcium carbonate (OS-ARNULFO) 648 mg (260 mg elemental) tablet 260 mg Ac tive cyanocobalamin/fo lic acid (vitamin E68-rlgeq acid) 500-400 mcg tablet Take by mouth [...] 10/18/2013 Overview (09/07/2016): Hypercholesteremia Pulmonary embolism 09/02/2012 Encounters Date Type Department Care Team Description 08/18/2024 3:44 PM CDT - 08/18/2024 11:59 PM CDT Hospital Encounter [facility] [address] [place] [address] Radiculopathy, cervical; Periodic headache syndrome, not intractable Discharge Disposition: Discharge to home or self care 08/18/2024 3:44 PM CDT - 08/18/2024 11:59 PM CDT Hospital Encounter [address] [address] Radiculopathy, cervical; Periodic headache syndrome, not intractable Discharge Disposition: Discharge to home or self care 08/12/2024 3:45 PM CDT Lab [facility] at [address] [address] Rheumatoid arthritis, involving unspecified site, unspecified whether rheumatoid factor present (HCC); Systemic lupus erythematosus with other organ involvement, unspecified SLE type (HCC); Lupus arthritis (HCC); High risk medication use 08/12/2024 3:00 PM CDT Office Visit [facility] Rheumatology [address] [place] [address] Medical Office Building [address] [place] [address] Kerrie Lyles MD Rheumatoid arthritis, involving unspecified site, unspecified whether rheumatoid factor present (HCC) (Primary Dx); Systemic lupus erythematosus with other organ involvement, unspecified SLE type (HCC); Lupus arthritis (HCC); High risk medication use; History of migraine headaches; Dizziness; Memory loss 07/14/2024 Telephone [facility] Rheumatology [address] [place] [address] Medicine 5th [place] [address] [place] [address] Sarah Tadeo, RMA P.A. FOR BENLYSTA 07/01/2024 Telephone [facility] [place] [phone] Tess De Los Santos MA 06/29/2024 3:17 PM STRAIGHTENER AND ALIGNER - 06/29/2024 11:59 PM [employer]ENER [employer]ER Hospital Encounter [address] [address] Acute cystitis without hematuria Discharge Disposition: Discharge to home or self care 06/29/2024 3:15 PM [employer]ENER [employer] ALIGNER Office Visit [facility] [place] [address] [place] [address] Lissette Mendoza NP Acute cystitis without hematuria (Primary Dx) 06/29/2024 Patient Self-Triage [facility] [address] [place] [address] Mychart, Generic Provider from Last 3 Months Immunizations Immunization Administration Dates Next Due Influenza, Trivalent, Cell C ulture-based MDCK, Preservative Free, Antibiotic Free, Intramuscular 03/04/2024 Surgical History Surgery Date Site/Laterality Comments OTHER SURGICAL HISTORY 06/04/1991 - 06/03/1992 Cholecystitis: Cholecystectomy OTHER SURGICAL HISTORY 06/04/1997 - 06/03/1998 Breast lump: Lumpectomy OTHER SURGICAL HISTORY 06/04/2000 - 06/03/2001 Headache, migraine: peritineal shunt OTHER SURGICAL HISTORY 06/04/2009 - 06/03/2010 Bone Spur (left shoulder): orthoscopic spur removal OTHER SURGICAL HISTORY 06/04/2010 - 06/03/2011 bicept tear (left side): tendon repair OTHER SURGICAL HISTORY 06/04/1991 - 06/03/1992 : 0 hr labor SECTION HYSTERECTOMY APPENDECTOMY Medical History Medical History Date Comments Hx Other Medical 1991 Cholecystitis; Outcome: successful Hx Other Medical 1997 Breast lump; Ou tcome: successful Hx Other Medical Headache, migra ine; Outcome: shunt removed Hx Other Medical 2009 Bone Spur (left shoulder); Outcome: successful Hx Other Medical 2010 bicept tear (le ft side); Outcome: successful Disorder of thyroid Thyroid dise ase Hyperlipidemia Hyperlipidemia Hx Other Medical 1991 ; Comm ents: breech, Patient delivered in [place]; Outcome: 38 week 7 lb(s) 9 oz Female History of blood clots Lung Rheumatoid arthritis (HCC) Migraines 1990 Chronic fatigue 2015 Hx of blood clots 2013 Family History Medical History Relation Name Comments Other Father adopted; Bone cancer Maternal Grandfather Cancer, bone; Cause of : Cancer, bone/Cancer -bone; Osteoporosis Maternal Grandfather Osteopo rosis; Hypertension Maternal Grandmother Hyperte nsion; Other Maternal Grandmother Uterine fibroids; Thyroid disease Maternal Grandmother Thyr oid disease; Other Mother Uterine fibroid s; Thyroid disease Mother Thyroid dise ase; Lupus Mother's Sister 1 Lupus eryt hematosus; Other Mother's Sister 2 Myesthenia gravis; Other Mother's Sister 3 Carpal waldo carleen; Hypertension Other 1 Family history of Hypertension; Alcohol abuse Other 2 Arthritis Other 2 Cancer Other 2 Stroke Other 2 Family history of Stroke; Thyroid disease Other 3 Family histo ry of Thyroid disease; Relation Name Status Comments Father Maternal Grandfather Maternal Grandmother Mother Mother's Sister 1 Mother's Sister 2 Mother's Sister 3 Other 1 Other 2 Other 3 Social History Tobacco Use Types Packs/Day Years [...] on file Legal Sex Female 10:14 AM STRAIGHTENER AND ALIGNER Gender Identity Female 11/13/2023 8:22 AM CDT Sexual Orientation Straight 11/13/2023 8: 22 AM CDT Obstetrics History Last Filed Vital Signs Vital Sign Reading Time Taken Comments Blood Pressure 87/63 08/12/2024 2:58 PM CDT Pulse 75 08/12/2024 2:58 PM CDT Temperature 36.3 C (97.3 F) 08/12/2024 2:58 PM CDT Respiratory Rate 18 06/29/2024 3:20 PM STRA[employer]ENER AND ALIGNER Oxygen Saturation 95% 06/29/2024 3:20 PM STRAIGHTENER AND ALIGNER Inhaled Oxygen Concentration - - Weight 90.5 kg (199 lb 8 oz) 08/12/2024 2:58 PM CDT Height 179.1 cm (5' 10.5 ) 08/12/2024 2:58 PM CD T Body Mass Index 28.22 08/12/2024 2:58 PM CDT Plan of Treatment Health Maintenance Due Date Last Done Comments Breast Cancer Screening-Mammogram 1970 Colon Cancer Screening-Colonoscopy 1970 Depression Screening 1970 Hepatitis C Screening 1970 DTaP/Tdap/Td Vaccine (1 - Tdap) 1981 Hepatitis B Screening 1988 Regular Well Visit/Exam 18-64 1988 Pneumococcal vaccine <65 (1 of 2 - PCV) 1989 Zoster Vaccine (1 of 2) 1989 Covid-19 Vaccine (3 - Pfizer risk series) 02/16/2021 01/19/2021, 12/29/2020 Influenza Vaccine Completed 03/04/2024, , 05/02/2016, Additional history exists Procedures Procedure Name Priority Date/Time Associated Diagnosis [...] POCT URINALYSIS DIPSTICK Routine 06/29/2024 3:40 PM [employer]ENER [employer] ALIGNER Acute cystitis without hematuria URINE CULTURE Routine 06/29/2024 3:17 PM [employer]ENER AND ALIGNER Acute cystitis without hematuria from Last 3 [...] evident. CALVARIUM: Unremarkable. ORBITS: No acute abnormality. [place] ocular lenses replaced bilaterally. PARANASAL SINUSES AND [...] Brendon Landaverde M.D. KYA: KYA Report ID: [id number] Reading Location: [id number] Procedure Note Brendon Landaverde MD - 08/19/2024 [...] evident. CALVARIUM: Unremarkable. ORBITS: No acute abnormality. [place] ocular lenses replaced bilaterally. PARANASAL SINUSES AND [...] Brendon Landaverde M.D. KYA: KYA Report ID: [id number] Reading Location: [place] [address] Jess Mendenhall MD IM MRI PROCEDURES Fi nal Result * MRI [...] evident. CALVARIUM: Unremarkable. ORBITS: No acute abnormality. [place] ocular lenses replaced bilaterally. PARANASAL SINUSES AND [...] Brendon Landaverde M.D. KYA: KYA Report ID: [id number] Reading Location: [place] [address] Procedure Note Brendon Landaverde MD - 08/19/2024 [...] evident. CALVARIUM: Unremarkable. ORBITS: No acute abnormality. [place] ocular lenses replaced bilaterally. PARANASAL SINUSES AND [...] Brendon Landaverde M.D. KYA: KYA Report ID: [id number] Reading Location: [id number] Jess Mendenhall MD IM MRI PROCEDURES Fi nal Result * Protein / creatinine ratio, urine, random (08/12/2024 5:13 PM CDT) Protein, ur, quant 33.1 mg/dL Comment: Interpretive Data No reference range established. Current interpretive data was last revised 2018. Testing performed by: [facility], [address] [place], [place] [address] Creatinine Ur 311.9 mg/dL JEWEL RAPP Comment: Interpretive Data No reference range established. Current interpretive data was last revised 2018. Testing performed by: [facility], [address] [place] [address] Protein/creatinin e ratio 106.1 0.0 - 180.0 mg/g CR JEWEL RAPP Comment:Testing performed by : [facility], [address] [place] [address] Urine 08/12/2024 5:13 PM CDT 08/12/2024 5:14 PM CDT Kerrie Lyles MD LAB URINE ORDERABLES Final Result [facility] [address] Department [place] [address] * (ABNORMAL) Urinalysis reflex to microscopic and culture Urine, clean voided (08/12/2024 4:30 PM CDT) Color, ur Yellow Yellow Comment:Testing performed by : [facility], [address] [place], [place] [address] Clarity, ur Cloudy(A) Clear JEWEL RAPP Comment:Testing performed by : [facility], [address] [place], [place] [address] Specific gravity, ur 1.025 1.003 - 1.030 JEWEL RAPP Comment:Testing performed by : [facility], [address] [place], [place] [address] pH, urine 5.5 JEWEL RAPP Comment: Interpretive Data U rine pH is affected by diet, medications, systemic acid-base disturbances, and renal tubular function. pH may affect urinary stone formation. For example, urine pH below 6.0 may help reduce the tendency for calcium phosphate stones and pH greater than 6.0 may reduce the tendency for uric acid stone formation. Source: [facility] Current Interpretive Data was last revised on 2017 Testing performed by: [facility], [address], [place] [address] Protein, ur ql 1+(A) Negative CERNER BJWCH Comment:Testing performed by : [facility], [address], [place] [address] Glucose, ur ql Negative Negative CERNER BJWCH Comment:Testing performed by : [facility], [address], [place] [address] Ketones, ur Negative Negative CERNER BJWCH Comment:Testing performed by : [facility], [address], [place] [address] Bilirubin, ur Negative Negative CERNER BJWCH Comment:Testing performed by : [facility], [address], [place] [address] Blood, ur Negative Negative CERNER BJWCH Comment:Testing performed by : [facility], [address], [place] [address] Urobilinogen, ur 2.0(A) <2.0 mg/dL CERNER BJWCH Comment:Testing performed by : [facility], [address], [place] [address] Nitrite, ur Negative Negative CERNER BJWCH Comment:Testing performed by : [facility], [address], [place] [address] Leukocyte esterase, ur Negative Negative CERNER BJWCH Comment:Testing performed by : [facility], [address], [place] [address] UA reflex comment Reflex to microscopic UA will be performed. CERNER BJWCH Comment:Testing performed by : [facility], [address], [place] [address] Urine, clean voided 08/12/2024 4:30 PM CDT 08/12/2024 5:14 PM CDT us Kerrie Lyles MD LAB MICROBIOLOGY - GENERAL ORDERABLES Final Result JEWEL RAPP [address] Department of Laboratories [place], [place] [id number] * (ABNORMAL) Urinalysis, microscopic only (08/12/2024 4:30 PM CDT) WBC, ur 0-5 0 - 5 /HPF Comment:Testing performed by : [facility], [address], [place] [address] RBC, ur 0-2 0 - 2 /HPF CERNER BJWCH Comment:Testing performed by : [facility], [address], [place] [address] Epithelial cells, squamous, ur 1-5 0 - 5 /HPF CERNER BJWCH Comment:Testing performed by : [facility], [address], [place] [address] Mucous, ur Present(A) CERNER BJW Comment:Testing performed by : [facility], [address], [place] [address] Calcium oxalate crystals, ur 4+(A) CERNER BJWCH Comment:Testing performed by : [facility], [address], [place] [address] Hyaline casts, ur >50(A) 0 - 10 /LPF CERNER BJWCH Comment:Testing performed by : [facility], [address], [place] [address] Culture Reflex Comment Reflex conditions for urine culture (WBC >10) not met. BRENDONNER BJWCH Comment:Testing performed by : [facility], [address], [place] [address] Urine, clean voided 08/12/2024 4:30 PM CDT 08/12/2024 5:14 PM CDT us Kerrie Lyles MD LAB URINE ORDERABLES Final Result JEWEL MCDANIELCH [address] Department [place] [address] * Anti-double stranded DNA abs (08/12/2024 3:55 PM CDT) Pathologist [facility] dsDNA Ab 2.0 <=4.0 IUnits/mL Comment: Interpretive Data Negative: < or = 4 IUnits/mL Indeterminate: 5 - 9 IUnits/mL Positive: > or = 10 IUnits/mL Current interpretive data was last revised on 2016. Testing performed by: [facility], [address] [place]., [address] Blood 08/12/2024 3:55 PM CDT 08/12/2024 6:28 PM CDT Kerrie Lyles MD LAB BLOOD ORDERABLES Final Result JEWEL [facility] [address] [facility] [place] [address] * eGFR (08/12/2024 3:55 PM CDT) Pathologist [facility] eGFR 67 >=60 mL/min/1. 73 m2 Comment: [...] was last reviewed 2021. Testing performed by: [facility], [address] [place] [address] Blood 08/12/2024 3:55 PM CDT 08/12/2024 4:31 PM CDT Kerrie Lyles MD LAB BLOOD ORDERABLES Final Result [facility] [address] Department [employer] [place] [address] * C4 complement (08/12/2024 3:55 PM CDT) Complement C4 19 10 - 40 mg/dL Comment:Testing performed by : [facility], [address] [place] [address], [place]., [address] Blood 08/12/2024 3:55 PM CDT 08/12/2024 7:28 PM CDT Kerrie Lyles MD LAB BLOOD ORDERABLES Final Result Performing Organization Address City/[facility]/ZIP Co de Phone Number [facility]EL [facility] [address] Department [employer] [place] [address] * Erythrocyte sedimentation rate (08/12/2024 3:55 PM CDT) Erythrocyte sedimentation rate 13 1 - 30 mm/hr Comment:Testing performed by : [facility], [address] [facility] [place] [address] Blood 08/12/2024 3:55 PM CDT 08/12/2024 4:31 PM CDT Kerrie Lyles MD LAB BLOOD ORDERABLES Final Result [facility] [address] Department [facility] [place] [address] * C3 complement (08/12/2024 3:55 PM CDT) Complement C3 128 90 - 180 mg/dL Comment:Testing performed by : [facility], [address] [facility], [place]., [address] Blood 08/12/2024 3:55 PM CDT 08/12/2024 7:28 PM CDT Kerrie Lyles MD LAB BLOOD ORDERABLES Final Result Performing Organization Address City/[facility] Co de Phone Number [facility] [address] Department [facility] [place] [address] * CRP (acute phase) (08/12/2024 3:55 PM CDT) Pathologist [facility] CRP <3.0 <=10.0 mg/L Comment:Testing performed by : [facility], [address] [place] [address] Blood 08/12/2024 3:55 PM CDT 08/12/2024 4:31 PM CDT us Kerrie Lyles MD LAB BLOOD ORDERABLES Final Result Performing Organization Address City/[facility] Co de Phone Number [facility]EL [facility] [address] [facility] [employer] [place] [address] * Comprehensive metabolic panel (08/12/2024 3:55 PM CDT) Sodium 141 135 - 145 mmol/L Comment:Testing performed by : [facility], [address] [place], [place] [address] Potassium, pl 3.8 3.3 - 4.9 mmol/L CERJOSE BJWCH Comment:Testing performed by : [facility], [address] [place] [address] Chloride 107 97 - 110 mmol/L CERJOSE BJWCH Comment:Testing performed by : [facility], [address] [place] [address] CO2 22 22 - 32 mmol/L CERJOSE BJWCH Comment:Testing performed by : [facility], [address], [place] [address] Anion gap 12 2 - 15 mmol/L CERNER BJWCH Comment:Testing performed by : [facility], [address], [place] [address] BUN 16 6 - 25 mg/dL CERNER BJWCH Comment:Testing performed by : [facility], [address], [place] [address] Creatinine 1.01 0.60 - 1.10 mg/dL CERNER BJWCH Comment:Testing performed by : [facility], [address], [place] [address] Glucose 89 70 - 199 mg/dL CERNER [...] was last revised 2022. Testing performed by: [facility], [address], [place] [address] Calcium 10.0 8.5 - 10.3 mg/dL CERNER BJWCH Comment:Testing performed by : [facility], [address], [place] [address] Bilirubin, total 0.3 0.1 - 1.2 mg/dL CERNER BJWCH Comment:Testing performed by : [facility], [address], [place] [address] Protein, pl 7.7 6.5 - 8.5 g/dL CERNER BJWCH Comment:Testing performed by : [facility], [address], [place] [address] Albumin 4.6 3.5 - 5.0 g/dL CERNER BJWCH Comment:Testing performed by : [facility], [address], [place] [address] Alk phos 86 40 - 130 Units/L [facility] Comment:Testing performed by : [facility], [address], [place], [place] [address] ALT 15 7 - 45 Units/L [facility] Comment:Testing performed by : [facility], [address], [place] [address] AST 19 10 - 45 Units/L [facility] Comment:Testing performed by : [facility], [address], [place] [address] Blood 08/12/2024 3:55 PM CDT 08/12/2024 4:31 PM CDT Kerrie Lyles MD LAB BLOOD ORDERABLES Final Result [facility] [address] Department [place] [address] * (ABNORMAL) POCT urinalysis dipstick (06/29/2024 3:40 PM STRAIGHTENER AND ALIGNER) Color, Urine, POC Yellow Clarity, ur, POC Clear Clear Glucose, ur, POC Negative Negative MG/DL Bilirubin, ur, POC Negative Negative, Small, Moderate, Large Ketones, ur, POC Negative Negative Specific [place], POC 1.015 1.003 - 1.030 Blood, ur, POC Negative Negative pH, ur, POC 6.0 5.0 - 8.0 Protein, ur, POC Negative Negative Urobilinogen, urine, POC 0.2 0.2 - 1.0 mg/dL Nitrite, ur, POC Positive(A) Negative Leukocytes, ur, POC Negative Negative Lot Number [id number] Urine 06/29/2024 3:40 PM STRA[employer]ENER AND ALIGNER us Lissette Mendoza NP POINT OF CARE TEST ORDERABLES Final Result * Urine culture Urine, clean voided (06/29/2024 3:17 PM STRAIGHTENER AND ALIGNER) Report Final Report: Less than 100,000 colonies/mL (clinically insignificant growth based on current clinical standards) Comment:Testing performed by : [facility], [address] [place]., [address] Organism (CLINICALLY INSIGNIFICANT GROWTH JEWEL AKERS Urine, clean voided 06/29/2024 3:17 PM STRA[employer]ENER AND ALIGNER 06/30/2024 12:36 AM STRAIGHTENER AND ALIGNER Narrative JEWEL AKERS - 07/01/2024 7:52 AM STRAIGHTENER AND ALIGNER Testing performed by [facility] Microbiology Laboratory ([phone]) us Lissette Mendoza NP LAB MICROBIOLOGY - GENERAL ORD ERABLES Final Result JEWEL AKERS [address] Department [place] [address] from Last 3 Months Insurance MEDICARE MEDICARE [employer] OPEN ACCESS MEDICARE [employer] OPEN ACCESS Care Teams Wad Compressor Operator Adjuster Relationship Specialty Start Date End Date Josue Pearl PA [address] [place] [address] PCP - General Internal Medicine 04/24/24 Reji Torres MD [address] [place] [address] Consulting Physician Rheumatology 05/18/21 Janiya Valencia MD [address] [place] [address] Consulting Physician Neurology 04/09/23
--- OUTSIDE RECORDS SUMMARY | 2024-09-16 13:17 | XMS_ITS | Encounter Summary ---
Author Organization [facility] Address [address] [place] [address] Phone Care Team Providers Care Vp Analysis Name Role Phone Suzanne Marques MD Primary Care Provider [phone] Reji Torres MD Unavailable [phone] Janiya Valencia MD Unavailable [phone] Josue Pearl Primary Care Provider + Encounter Details Date Type Department Care Team (Late st Contact Info) Description 03/06/2023 Orders Only [facility] Scanning, Provider Social History Tobacco Use Types Packs/Day Years Used Date Smoking Tobacco: Never Alcohol Use Standard Drinks/Week Comments Yes 0 (1 standard drink = 0.6 oz pur e alcohol) Comments Unknown Sex and Gender Information Value Date Recorded Sex Assigned at Not on file Legal Sex Female 10:14 AM HEAD OF SCIENCE Gender Identity Female 11/13/2023 8:22 AM CDT Sexual Orientation Straight 11/13/2023 8: 22 AM CDT documented as of this encounter Plan of Treatment Not on file documented as of this encounter Procedures Procedure Name Priority Date/Time Associated Diagnosis Comments SCAN - LABS 03/06/2023 documented in this encounter Results * SCAN - LABS (03/06/2023) us Provider Scanning Final Result documented in this encounter Visit Diagnoses Not on filedocumented in this encounter Care Teams Vp Analysis Relationship Specialty Start Date End Date Suzanne Marques MD [facility] [place] [address] PCP - General 08/02/11 04/23/24 Josue Pearl PA [address] [place] [address] PCP - General Internal Medicine 04/24/24 Reji Torres MD [address] [facility] [address] [place] [address] Consulting Physician Rheumatology 05/18/21 Janiya Valencia MD [address] [facility] [address] [address] [place] [address] Consulting Physician Neurology 04/09/23 documented as of this encounter
--- OUTSIDE RECORDS SUMMARY | 2024-09-16 13:17 | XMS_ITS | Continuity of Care Document ---
Author Organization [facility] Address [address] [place] [address] Phone Care Team Providers Care Consulting Technical Director Name Role Phone Fabio BOSE, Bhavin Unavailable Unavailable Medications Medication Instructions Dosage Effective Dates (start - stop) Status Comments Tylenol-Codeine #3 300 mg-30 mg Tab take 1 tablet by oral route every 6 hours as needed - Active zolpidem 10 mg Tab take 1 tablet (10MG) by oral route every day at bedtime 10 MG - Active levothyroxine 125 mcg Cap take 1 capsule (125MCG) by oral route every day 125 MCG - Active Nexium 40 mg Cap take 2 (80MG) by oral route every day 80 MG - Active oxycodone 5 mg Tab take 1 by Oral route 2 times every day 1 - Active Naprosyn 500 mg Tab 80 MG - Active Carafate 1 gram Tab take 1 tablet (1G) by oral route 4 times every day on an empty stomach 1 hour before meals and at bedtime 1 G - Active promethazine 25 mg Tab take 1 tablet (25MG) by oral route every day at bedtime 25 MG - Active Ceftin 500 mg Tab take 1 tablet (500MG) by oral route every 12 hours - Active zolpidem 10 mg Tab take 1 tablet (10MG) by oral route every day at bedtime 10 MG - No Longer Active Procedures Procedure Date OFFICE/OUTPATIENT VISIT, EST OFFICE/OUTPATIENT VISIT, EST Advance Directives Directive Yes / No Effective Date File Name No Information Encounters Encounter Description Practice Location Reason(s) For Visit Diagnoses Date Provider Providers Copied on Encounter OFFICE/OUTPA TIENT VISIT, [facility], [address], [place], [place], [id number], [place] tel:[phone] [facility] abdominal pain (chief complaint) Abdominal Pain 1 Mccarthy Bhavin. [address] [place], [address]. tel:[phone] OFFICE/OUTPA TIENT VISIT, [facility], [address], [place], [place], [id number], [place] tel:[phone] [facility] vomiting (chief complaint) Abdominal painPelvic pain in female 1 Fabio Arguetar. [address] [place], [address]. tel:[phone] [facility], [address], [place], [place], [id number], [place] tel:[phone] Noteworthy Legacy Data Unspecified reason for consultationAcu te upper respiratory infections of unspecified siteAcute upper respiratory infections of unspecified siteUrinary tract infection, site not specifiedOther psychological or physical stress, not elsewhere classified No Information Family History Family Member Type Diagnosis Age At Onset No Information Payers Payer name Insurance type Covered democrat ID Authoriza tion(s) No Information Social History Type Description Quantity Date Captured Comments Sex Female Smoking Status No Information Vital Signs Date / Time: Height Weight BMI Pulse Rate Blood Pressure Temperature Respiratory Rate Body Surface Area Head Circumference Head Circ. Percentile Wt./Angelo. Percentile BMI percentile Pulse Ox Inhaled Ox 2:36 PM 220.60 lbs 76 /min 122/64 mm[Hg] 99.10 F 16 /min Chief Complaint And Reason For Visit From encounter dated '04/21/2011 14:45'. abdominal pain (chief complaint) Reason For Referral Reason For Referral No Information Plan Of Treatment Date Type Action Status Referral Ordered: TRANSVAGINAL US, NON-OB ordered History Of Present Illness Encounter Date Complaint History Of Prese nt Illness No Information Functional Status Date Functional Assessmen t No Information Instructions Date Instruction Additional Infor mation No Information Assessments Type Assessment Date No Information Patient Care Teams Name Effective Dates (start - stop) Status Members No Information
[2024-09-16] MEDS: SODIUM CHLORIDE 0.9% IV 1,000 ML 999 ML IV CONT (13:20)
[2024-09-16] MEDS: MORPHINE SULFATE (*CRX) 4 MG/ML INJ IV PUSH (13:20)
[2024-09-16] MEDS: ONDANSETRON INJ 4 MG/2 ML VIAL IV PUSH (13:20)
[2024-09-16 13:50] LABS: Basophils Absolute Auto 0.1 K/mm3 (0.0-0.1); Basophils Percent Auto 1.5 % (0.2-1.2); Eosinophils Absolute Auto 0.3 K/mm3 (0-0.3); Eosinophils Percent Auto 6.5 % (0-4.4); Hematocrit 39.3 % (37.0-47.0); Hemoglobin 12.2 g/dL (12.0-15.0); Lymphocytes Percent Auto 37.4 % (18.3-44.2); Mean Corpuscular Hemoglobin 27.8 pg (26-34); Mean Corpuscular Volume 89.5 fl (80-100); Mean Platelet Volume 9.7 fl (7.4-10.4); Monocytes Absolute Auto 0.5 K/mm3 (0.1-0.6); Monocytes Percent Auto 13.2 % (2.6-8.5); Neutrophils Absolute Auto 1.7 K/mm3 (1.3-6.7); Neutrophils Percent Auto 41.4 % (45.5-73.1); Platelet Count Result 252 k/mm3 (150-375); Red Blood Count 4.39 M/mm3 (4.2-5.4); Red Cell Distribution Width 15.9 % (11.5-14.5)
[2024-09-16 13:54] LABS: Alanine Aminotransferase 13 U/L (6-35); Albumin Level 4.2 g/dL (3.5-5.1); Alkaline Phosphatase 71 U/L (38-126); Anion Gap 9 mmol/L (4-12); Aspartate Amino Transferase 22 U/L (14-36); Bilirubin,Total 0.4 mg/dL (0.2-1.3); Blood Urea Nitrogen 13 mg/dL (7-17); Calcium 8.7 mg/dL (8.4-10.2); Carbon Dioxide 23 mmol/L (22-30); Chloride 110 mmol/L (98-107); Estimated CRCL calculation 67 ml/min; Estimated Glomerular Filt Rate > 60; Glucose 88 mg/dL (65-110); Lipase 82 U/L (23-300); Magnesium 2.6 mg/dL (1.6-2.3); Potassium 3.9 mmol/L (3.4-5.0); Sodium 142 mmol/L (137-145)
[2024-09-16 13:56] LABS: Lactic Acid Reflex 0.6 mmol/L (0.7-2.0)
[2024-09-16 14:11] LABS: Add Urine Microscopic? NO; Appearance Urine Clear (Clear); Bilirubin Urine Negative (Negative); Blood Urine Negative (Negative); Color Urine Yellow (Yellow); Glucose Urine UA Negative (Negative); Ketones Urine Negative (Negative); Leukocyte Esterase Ur Negative LEU/UL (Negative); Nitrate Urine Negative (Negative); Protein Urine Negative (Negative); Specific Grav Ur 1.011 (1.001-1.035); Urobilinogen Urine 0.2 mg/dL (<2.0); pH Urine 5.5 (5.0-9.0)
--- OUTSIDE RECORDS SUMMARY | 2024-09-16 14:15 | XMS_ITS | Encounter Summary ---
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 Gender Identity Female 11/13/2023 8:22 AM CDT [...] on filedocumented in this encounter Care Teams Career Transition Specialist Relationship Specialty Start Date End Date Suzanne Marques MD [facility] [place] [address] PCP - General 08/02/11 04/23/24 Josue Pearl PA [address] [place] [address] PCP - General Internal Medicine 04/24/24 Reji Torres MD [address] [facility] [address] [place] [address] Consulting Physician Rheumatology 05/18/21 Janiya Valencia MD [address] [facility] [address] [place] [address] Consulting Physician Neurology 04/09/23 documented as of this encounter
--- OUTSIDE RECORDS SUMMARY | 2024-09-16 14:15 | XMS_ITS | Referral Summary ---
Author Organization [facility] [address] [facility] [place] [address] Care Team Providers Care Hairspring Truing Inspector Name Role Phone Reji Torres MD Unavailable [phone] Janiya [place] MD Unavailable [phone] Josue Pearl Primary Care Provider + Encounters Date Type Department Care Team Description 08/18/2024 3:44 PM CDT - 08/18/2024 11:59 PM CDT Hospital Encounter [facility] [address] [place] [address] Radiculopathy, cervical; Periodic headache syndrome, not intractable Discharge Disposition: Discharge to home or self care 08/18/2024 3:44 PM CDT - 08/18/2024 11:59 PM CDT Hospital Encounter [facility] [address] [place] [address] Radiculopathy, cervical; Periodic headache syndrome, not intractable Discharge Disposition: Discharge to home or self care 08/12/2024 3:[address] [facility] at [address] [place] [address] Rheumatoid arthritis, involving unspecified site, unspecified whether rheumatoid factor present (HCC); Systemic lupus erythematosus with other organ involvement, unspecified SLE type (HCC); Lupus arthritis (HCC); High risk medication use 08/12/2024 3:00 PM CDT Office Visit [facility] [address] [place] [address] Kerrie Lyles MD Rheumatoid arthritis, involving unspecified site, unspecified whether rheumatoid factor present (HCC) (Primary Dx); Systemic lupus erythematosus with other organ involvement, unspecified SLE type (HCC); Lupus arthritis (HCC); High risk medication use; History of migraine headaches; Dizziness; Memory loss 07/14/2024 Telephone [facility] [address] 5th [place] [address] [place] [address] Sarah Tadeo, Ruel P.A. FOR BENLYSTA 07/01/2024 Telephone [facility] at [address] [place] [address] Tess De Los Santos MA 06/29/2024 3:17 PM RIBBING MACHINE OPERATOR - 06/29/2024 11:59 PM RIBBING MACHINE OPERATOR Hospital Encounter [address] [address] Acute cystitis without hematuria Discharge Disposition: Discharge to home or self care 06/29/2024 3:15 PM RIBBING MACHINE OPERATOR Office Visit [facility] Medical [facility] [place] [address] [place] [address] Lissette Mendoza NP Acute cystitis without hematuria (Primary Dx) 06/29/2024 Patient Self-Triage [facility]/ Physicians [address] [place] [address] Mychart, Generic Provider from Last 3 Months [...] CHRONIC WEIGHT LOSS 01/05/20 23 Active Ca-D3-mag ae-wpec-xls-nessa- bor 600 mg calcium- 20 mcg-50 mg tablet Take by mouth Active multivitamin tabletIndications :Vitamin Deficiency Prevention Take 1 tablet by mouth Active calcium carbonate (OS-ARNULFO) 648 mg (260 mg elemental) tablet 260 mg Ac tive cyanocobalamin/fo lic acid (vitamin Y76-wsvhx acid) 500-400 mcg tablet Take by mouth [...] on file Legal Sex Female 10:14 AM RIBBING MACHINE OPERATOR Gender Identity Female 11/13/2023 8:22 AM CDT Sexual Orientation Straight 11/13/2023 8: 22 AM CDT Last Filed Vital Signs Vital Sign Reading Time Taken Comments Blood Pressure 87/63 08/12/2024 2:58 PM CDT Pulse 75 08/12/2024 2:58 PM CDT Temperature 36.3 C (97.3 F) 08/12/2024 2:58 PM CDT Respiratory Rate 18 06/29/2024 3:20 PM RIBBING MACHINE OPERATOR Oxygen Saturation 95% 06/29/2024 3:20 PM RIBBING MACHINE OPERATOR Inhaled Oxygen Concentration - - Weight 90.5 [...] POCT URINALYSIS DIPSTICK Routine 06/29/2024 3:40 PM RIBBING MACHINE OPERATOR Acute cystitis without hematuria URINE CULTURE Routine 06/29/2024 3:17 PM RIBBING MACHINE OPERATOR Acute cystitis without hematuria from Last 3 [...] evident. CALVARIUM: Unremarkable. ORBITS: No acute abnormality. [place] ocular lenses replaced bilaterally. PARANASAL SINUSES AND [...] Brendon Landaverde M.D. KYA: KYA Report ID: [id number] Reading Location: [id number] Procedure Note Brendon Landaverde MD - 08/19/2024 [...] evident. CALVARIUM: Unremarkable. ORBITS: No acute abnormality. [place] ocular lenses replaced bilaterally. PARANASAL SINUSES AND [...] Brendon Landaverde M.D. KYA: KYA Report ID: [id number] Reading Location: [id number] Jess Mendenhall MD IMG MRI PROCEDURES Fi [...] evident. CALVARIUM: Unremarkable. ORBITS: No acute abnormality. [place] ocular lenses replaced bilaterally. PARANASAL SINUSES AND [...] Brendon Landaverde M.D. KYA: KYA Report ID: [id number] Reading Location: [place] [address] Procedure Note Brendon Landaverde MD - 08/19/2024 [...] evident. CALVARIUM: Unremarkable. ORBITS: No acute abnormality. [place] ocular lenses replaced bilaterally. PARANASAL SINUSES AND [...] Brendon Landaverde M.D. KYA: KYA Report ID: [id number] Reading Location: [place] [address] Jess Mendenhall MD IMG MRI PROCEDURES Fi nal Result * Protein / creatinine ratio, urine, random (08/12/2024 5:13 PM CDT) Protein, ur, quant 33.1 mg/dL Comment: Interpretive Data No reference range established. Current interpretive data was last revised 2018. Testing performed by: [facility], [address] [place] [address] Creatinine Ur 311.9 mg/dL JEWEL RAPP Comment: Interpretive Data No reference range established. Current interpretive data was last revised 2018. Testing performed by: [facility], [address] [place] [address] Protein/creatinin e ratio 106.1 0.0 - 180.0 mg/g CR JEWEL RAPP Comment:Testing performed by : [facility], [address], [place] [address] Urine 08/12/2024 5:13 PM CDT 08/12/2024 5:14 PM CDT us Kerrie Lyles MD LAB URINE ORDERABLES Final Result BRENDONJOSE TAMELA [address] Department [place] [address] * (ABNORMAL) Urinalysis reflex to microscopic and culture Urine, clean voided (08/12/2024 4:30 PM CDT) Color, ur Yellow Yellow Comment:Testing performed by : [facility], [address], [place] [address] Clarity, ur Cloudy(A) Clear JEWEL RAPP Comment:Testing performed by : [facility], [address], [place] [address] Specific gravity, ur 1.025 1.003 - 1.030 JEWEL RAPP Comment:Testing performed by : [facility], [address], [place] [address] pH, urine 5.5 JEWEL RAPP Comment: Interpretive Data U rine pH is affected by diet, medications, systemic acid-base disturbances, and renal tubular function. pH may affect urinary stone formation. For example, urine pH below 6.0 may help reduce the tendency for calcium phosphate stones and pH greater than 6.0 may reduce the tendency for uric acid stone formation. Source: [employer] Current Interpretive Data was last revised on 2017 Testing performed by: [facility], [address], [place] [address] Protein, ur ql 1+(A) Negative JEWEL RPAP Comment:Testing performed by : [facility], [address], [place] [address] Glucose, ur ql Negative Negative JEWEL RAPP Comment:Testing performed by : [facility], [address], [place] [address] Ketones, ur Negative Negative CERNER BJWCH Comment:Testing performed by : [facility], [address], [place] [address] Bilirubin, ur Negative Negative CERNER BJWCH Comment:Testing performed by : [facility], [address], [place] [address] Blood, ur Negative Negative CERNER BJWCH Comment:Testing performed by : [facility], [address], [place] [address] Urobilinogen, ur 2.0(A) <2.0 mg/dL CERNER BJWCH Comment:Testing performed by : [facility], [address], [place] [address] Nitrite, ur Negative Negative CERNER BJWCH Comment:Testing performed by : [facility], [address], [place] [address] Leukocyte esterase, ur Negative Negative CERNER BJWCH Comment:Testing performed by : [facility], [address], [place] [address] UA reflex comment Reflex to microscopic UA will be performed. JEWEL BJWCH Comment:Testing performed by : [facility], [address], [place] [address] Urine, clean voided 08/12/2024 4:30 PM CDT 08/12/2024 5:14 PM CDT us Kerrie Lyles MD LAB MICROBIOLOGY - GENERAL ORDERABLES Final Result JEWEL NAIKWCH [address] Department [place] [address] * (ABNORMAL) Urinalysis, microscopic only (08/12/2024 4:30 PM CDT) WBC, ur 0-5 0 - 5 /HPF Comment:Testing performed by : [facility], [address], [place] [address] RBC, ur 0-2 0 - 2 /HPF JEWEL RAPP Comment:Testing performed by : [facility], [address], [place] [address] Epithelial cells, squamous, ur 1-5 0 - 5 /HPF JEWEL RAPP Comment:Testing performed by : [facility], [address], [place] [address] Mucous, ur Present(A) JEWEL RAPP Comment:Testing performed by : [facility], [address], [place] [address] Calcium oxalate crystals, ur 4+(A) JEWEL RAPP Comment:Testing performed by : [facility], [address], [place] [address] Hyaline casts, ur >50(A) 0 - 10 /LPF JEWEL RAPP Comment:Testing performed by : [facility], [address], [place] [address] Culture Reflex Comment Reflex conditions for urine culture (WBC >10) not met. JEWEL RAPP Comment:Testing performed by : [facility], [address], [place] [address] Urine, clean voided 08/12/2024 4:30 PM CDT 08/12/2024 5:14 PM CDT us Kerrie Lyles MD LAB URINE ORDERABLES Final Result [facility] [address] Department [place] [address] * Anti-double stranded DNA abs (08/12/2024 3:55 PM CDT) dsDNA Ab 2.0 <=4.0 IUnits/mL Comment: Interpretive Data Negative: < or = 4 IUnits/mL Indeterminate: 5 - 9 IUnits/mL Positive: > or = 10 IUnits/mL Current interpretive data was last revised on 2016. Testing performed by: [facility], [address] [place]., [address] Blood 08/12/2024 3:55 PM CDT 08/12/2024 6:28 PM CDT Kerrie Lyles MD LAB BLOOD ORDERABLES Final Result Performing Organization Address [facility] Co de Phone Number JEWEL MCDANIEL [address] [facility]. [facility] [place] [address] * eGFR (08/12/2024 3:55 PM CDT) eGFR [...] was last reviewed 2021. Testing performed by: [facility], [address] [facility], [place] [address] Blood 08/12/2024 3:55 PM CDT 08/12/2024 4:31 PM CDT us Kerrie Lyles MD LAB BLOOD ORDERABLES Final Result Performing Organization Address [facility] Co de Phone Number JEWEL NAIKWCH [address] [facility]. [facility] [place] [address] * C4 complement (08/12/2024 3:55 PM CDT) Complement C4 19 10 - 40 mg/dL Comment:Testing performed by : [facility], [address] [place] [address]., [address] Blood 08/12/2024 3:55 PM CDT 08/12/2024 7:28 PM CDT Kerrie Lyles MD LAB BLOOD ORDERABLES Final Result JEWEL [facility] [address] [facility]. [facility] [place] [address] * Erythrocyte sedimentation rate (08/12/2024 3:55 PM CDT) Pathologist [facility] Erythrocyte sedimentation rate 13 1 - 30 mm/hr Comment:Testing performed by : [facility], [address] [place] [address] Blood 08/12/2024 3:55 PM CDT 08/12/2024 4:31 PM CDT Kerrie Lyles MD LAB BLOOD ORDERABLES Final Result Performing Organization Address [facility] Co de Phone Number JEWEL [facility] [address] [facility]. [place] [address] * C3 complement (08/12/2024 3:55 PM CDT) Complement C3 128 90 - 180 mg/dL Comment:Testing performed by : [facility], [address] [place] [address]., [address] Blood 08/12/2024 3:55 PM CDT 08/12/2024 7:28 PM CDT Kerrie Lyles MD LAB BLOOD ORDERABLES Final Result Performing Organization Address City/[facility]/ZIP Co de Phone Number JEWEL BJWCH [address] [facility]. [facility] [place] [address] * CRP (acute phase) (08/12/2024 3:55 PM CDT) CRP <3.0 <=10.0 mg/L Comment:Testing performed by : [facility], [address] [place] [address] Blood 08/12/2024 3:55 PM CDT 08/12/2024 4:31 PM CDT us Kerrie Lyles MD LAB BLOOD ORDERABLES Final Result [facility] [address] Department [place] [address] * Comprehensive metabolic panel (08/12/2024 3:55 PM CDT) Pathologist [facility] Sodium 141 135 - 145 mmol/L Comment:Testing performed by : [facility], [address] [place] [address] Potassium, pl 3.8 3.3 - 4.9 mmol/L CERNER BJWCH Comment:Testing performed by : [facility], [address], [place] [address] Chloride 107 97 - 110 mmol/L CERNER BJWCH Comment:Testing performed by : [facility], [address], [place] [address] CO2 22 22 - 32 mmol/L CERNER BJWCH Comment:Testing performed by : [facility], [address], [place] [address] Anion gap 12 2 - 15 mmol/L CERNER BJWCH Comment:Testing performed by : [facility], [address], [place] [address] BUN 16 6 - 25 mg/dL CERNER BJWCH Comment:Testing performed by : [facility], [address], [place] [address] Creatinine 1.01 0.60 - 1.10 mg/dL CERNER BJWCH Comment:Testing performed by : [facility], [address] [place] [address] Glucose 89 70 - 199 mg/dL CERNER [...] was last revised 2022. Testing performed by: [facility], [address], [place] [address] Calcium 10.0 8.5 - 10.3 mg/dL CERNER BJWCH Comment:Testing performed by : [facility], [address], [place] [address] Bilirubin, total 0.3 0.1 - 1.2 mg/dL CERNER BJWCH Comment:Testing performed by : [facility], [address], [place] [address] Protein, pl 7.7 6.5 - 8.5 g/dL CERNER BJWCH Comment:Testing performed by : [facility], [address], [place] [address] Albumin 4.6 3.5 - 5.0 g/dL CERNER BJWCH Comment:Testing performed by : [facility], [address], [place] [address] Alk phos 86 40 - 130 Units/L CERNER BJWCH Comment:Testing performed by : [facility], [address], [place] [address] ALT 15 7 - 45 Units/L CERNER BJWCH Comment:Testing performed by : [facility], [address], [place] [address] AST 19 10 - 45 Units/L CERNER BJWCH Comment:Testing performed by : [facility], [address] [place] [address] Blood 08/12/2024 3:55 PM CDT 08/12/2024 4:31 PM CDT Result [facility] Kerrie Lyles MD LAB BLOOD ORDERABLES Final Result JEWEL BJWCH [address] [facility] [place] [address] * (ABNORMAL) POCT urinalysis dipstick (06/29/2024 3:40 PM RIBBING MACHINE OPERATOR) Color, Urine, POC Yellow Clarity, ur, POC Clear Clear Glucose, ur, POC Negative Negative MG/DL Bilirubin, ur, POC Negative Negative, Small, Moderate, Large Ketones, ur, POC Negative Negative Specific [place], POC 1.015 1.003 - 1.030 Blood, ur, POC Negative Negative pH, ur, POC 6.0 5.0 - 8.0 Protein, ur, POC Negative Negative Urobilinogen, urine, POC 0.2 0.2 - 1.0 mg/dL Nitrite, ur, POC Positive(A) Negative Leukocytes, ur, POC Negative Negative Lot Number [id number] Urine 06/29/2024 3:40 PM RIBBING MACHINE OPERATOR Result [facility] Lissette Mendoza NP POINT OF CARE TEST ORDERABLES Final Result * Urine culture Urine, clean voided (06/29/2024 3:17 PM RIBBING MACHINE OPERATOR) Report Final Report: Less than 100,000 colonies/mL (clinically insignificant growth based on current clinical standards) Comment:Testing performed by : [facility], [address] [place]., [address] Organism (CLINICALLY INSIGNIFICANT GROWTH JEWEL AKERS Urine, clean voided 06/29/2024 3:17 PM RIBBING MACHINE OPERATOR 06/30/2024 12:36 AM RIBBING MACHINE OPERATOR Narrative JEWEL AKERS - 07/01/2024 7:52 AM RIBBING MACHINE OPERATOR Testing performed by [facility] Microbiology Laboratory ([phone]) Result [facility] Lissette Mendoza NP LAB MICROBIOLOGY - GENERAL ORD ERABLES Final Result JEWEL [address] Department [place] [address] from Last 3 Months Insurance MEDICARE MEDICARE [employer] OPEN ACCESS MEDICARE [employer] OPEN ACCESS Care Teams Hairspring Truing Inspector Relationship Specialty Start Date End Date Josue Pearl PA [facility] [place] [address] PCP - General Internal Medicine 04/24/24 Reji Torres MD [address] [place] [address] Consulting Physician Rheumatology 05/18/21 Janiya Valencia MD [address] [place] [address] Consulting Physician Neurology 04/09/23
--- OUTSIDE RECORDS SUMMARY | 2024-09-16 14:15 | XMS_ITS | CONTINUITY OF CARE DOCUMENT ---
Author Name maggie serrano Address Unknown Organization [facility] Address [address] [place] [address] Phone [phone] Care Team Providers Care Casing Builder Name Role Phone [place] BOSE, Eleonora Unavailable CARI FRANCO Unavailable PROBLEMS Condition Status Date Provider Notes Rheumatoid arthritis active Gabino Ahmedzai Pulmonary embolism active Gabino Ahmedzai Hyperlipidemia active Gabino Ahmedzai Hypothyroidism active Gabino Ahmedzai Cardiology examination active Gabino Ahmedzai Lupus active Gabino Ahmedzai Dizziness completed - Gabino Ahmedza i ENCOUNTERS Date Type Provider Location Encounter Diag nosis - In-person encounter Office Visit Eleonora Delarosa MD [facility] - In-person encounter Office Visit Eleonora Delarosa MD [facility] DizzinessCardiology examinationLupus VITAL SIGNS Date Observation [...] Payer name Policy type / Coverage type [place] red green party ID [place]IC[place] [id number] [facility] [id number] ADVANCE DIRECTIVES Name Date DISCUSSED - NO DECISION MADE TREATMENT PLAN Date Name Performer Cardiology: O rders: C omplete Echo (67113) C T, Coronary Calcium Score (CPT-59032) Her updated medication list for this problem includes: Simvastatin 40 Mg Tablet (Simvastatin) Gabino Hartman Cardiology: O rders: C omplete Echo (16587) C T, Coronary Calcium Score (CPT-53640) Her updated medication list for this problem includes: Levothyroxine 112 Mcg Tablet (Levothyroxine) Gabino Castellanoisrael Cardiology: O rders: C omplete Echo (95067) C T, Coronary Calcium Score (CPT-84590) Gabino Jordenmaulik Cardiology: O rders: C omplete Echo (77235) C T, Coronary Calcium Score (CPT-26617) Gabino Hartman Cardiology: O rders: C omplete Echo (81517) C T, Coronary Calcium Score (CPT-91887) Gabino Curielluisisrael Cardiology: O rders: E KG (CPT-93950) C omplete Echo (97306) C T, Coronary Calcium Score (CPT-10897) Gabino Leonardomaulik Date Name CT, Coronary Calcium Score Complete Echo HISTORY OF PROCEDURES Procedure Date Procedure Name Provider Procedure Notes S tatus CT- Coronary CA score Eleonora Delarosa MD completed EKG Eleonora Delarosa MD completed
--- OUTSIDE RECORDS SUMMARY | 2024-09-16 14:15 | XMS_ITS | Clinical Summary ---
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 Active simvastatin (ZOCOR) 20 mg tablet Take [...] 2024 03/10/2015 Medical Devices Implanted Type Area Solid Waste Engineer Device Identifier Shelf Expiration Date Model / Serial / Lot Seamguard Bio 60 [id number] - [id number] Implanted:Qty: 5 on 2015 by Aquiles Grey MD at [facility] N/A: Stomach [employer] 07/04/2018 [id number] / / [id number] Insurance Advance Directives For more information, please contact: [phone] * Full Code (Latest Code Status on [...] 9:19 AM 09/10/2015 12:41 PM Care Teams Fire Prevention Inspector Relationship Specialty Start Date End Date Anni, External Provider PCP - General 08/31/15
--- OUTSIDE RECORDS SUMMARY | 2024-09-16 14:15 | XMS_ITS | Clinical Summary ---
Author Organization [facility] Address [facility] [place] [address] Care Team Providers Care Labor Standards Director Name Role Phone Suzanne Blanco MD Primary Care Provider Allergies Active Allergy Reactions Criticality Noted Date Comments Amoxicillin-Pot Clavulanate Diarrhea,Vomiting Low 05/18/2021 Ketorolac Rash High 09/02/2012 Reaction: Rash, , Levofloxacin Nausea and Vomiting,Nausea Only,Vomiting High 09/02/2012 Reaction: Nausea, Vomiting, , Lorazepam Palpitations Low 09/02/2012 Prochlorperazine Anxiety Low 10/26/2015 Medications Vitamin D, Ergocalciferol , 40523 units Cap 50,000 Units. Active FLUoxetine HCl [...] 5 season) 2024 01/19/2021, 12/29/2020 PHQ-2 (Physician [place]) 06/04/2024 03/29/2023 Meningococcal B Vaccine Aged Out [...] patient's age to complete this topic Insurance [facility] MEDICARE Care Teams Labor Standards Director Relationship Specialty Start Date End Date Suzanne Blanco MD [facility] [place] [address] PCP - General FAMILY PRACTICE 02/14/23
--- OUTSIDE RECORDS SUMMARY | 2024-09-16 14:15 | XMS_ITS | Clinical Summary ---
Author Organization [facility] [address] Address [address] [place] [address] Care Team Providers Care Business Process Specialist Name Role Phone Reji Torres MD Unavailable [phone] Janiya Valencia MD Unavailable [phone] Josue Pearl Primary Care Provider + Allergies [...] CHRONIC WEIGHT LOSS 01/05/20 23 Active Ca-D3-mag uz-hruj-ktr-nessa- bor 600 mg calcium- 20 mcg-50 mg tablet Take by mouth Active multivitamin tabletIndications :Vitamin Deficiency Prevention Take 1 tablet by mouth Active calcium carbonate (OS-ARNULFO) 648 mg (260 mg elemental) tablet 260 mg Ac tive cyanocobalamin/fo lic acid (vitamin R07-lpyac acid) 500-400 mcg tablet Take by mouth [...] - 08/18/2024 11:59 PM CDT Hospital Encounter [facility] [address] [place] [address] Radiculopathy, cervical; Periodic headache syndrome, not intractable Discharge Disposition: Discharge to home or self care 08/18/2024 3:44 PM CDT - 08/18/2024 11:59 PM CDT Hospital Encounter [address] [address] Radiculopathy, cervical; Periodic headache syndrome, not intractable Discharge Disposition: Discharge to home or self care 08/12/2024 3:45 PM CDT Lab [facility] at [address] [address] Rheumatoid arthritis, involving unspecified site, unspecified whether rheumatoid factor present (HCC); Systemic lupus erythematosus with other organ involvement, unspecified SLE type (HCC); Lupus arthritis (HCC); High risk medication use 08/12/2024 3:00 PM CDT Office Visit [facility] Rheumatology [address] [place] [address] Medical Office Building [address] [place] [address] Kerrie Lyles MD Rheumatoid arthritis, involving unspecified site, unspecified whether rheumatoid factor present (HCC) (Primary Dx); Systemic lupus erythematosus with other organ involvement, unspecified SLE type (HCC); Lupus arthritis (HCC); High risk medication use; History of migraine headaches; Dizziness; Memory loss 07/14/2024 Telephone [facility] Rheumatology [address] [place] [address] Medicine 5th [place] [address] [place] [address] Sarah Tadeo, RMA P.A. FOR BENLYSTA 07/01/2024 Telephone [facility] [place] [phone] Tess De Los Santos MA 06/29/2024 3:17 PM DISTRICT ASSOCIATE JUDGE - 06/29/2024 11:59 PM DISTRICT ASSOCIATE JUDGE Hospital Encounter [address] [address] Acute cystitis without hematuria Discharge Disposition: Discharge to home or self care 06/29/2024 3:15 PM DISTRICT ASSOCIATE JUDGE Office Visit [facility] [place] [address] [place] [address] Lissette Mendoza NP Acute cystitis without hematuria (Primary Dx) 06/29/2024 Patient Self-Triage [facility] [address] [place] [address] Mychart, Generic Provider from Last 3 Months [...] ; Comm ents: breech, Patient delivered in [place]; Outcome: 38 week 7 lb(s) 9 oz [...] on file Legal Sex Female 10:14 AM DISTRICT ASSOCIATE JUDGE Gender Identity Female 11/13/2023 8:22 AM CDT Sexual Orientation Straight 11/13/2023 8: 22 AM CDT Obstetrics History Last Filed Vital Signs Vital Sign Reading Time Taken Comments Blood Pressure 87/63 08/12/2024 2:58 PM CDT Pulse 75 08/12/2024 2:58 PM CDT Temperature 36.3 C (97.3 F) 08/12/2024 2:58 PM CDT Respiratory Rate 18 06/29/2024 3:20 PM DISTRICT ASSOCIATE JUDGE Oxygen Saturation 95% 06/29/2024 3:20 PM DISTRICT ASSOCIATE JUDGE Inhaled Oxygen Concentration - - Weight 90.5 [...] POCT URINALYSIS DIPSTICK Routine 06/29/2024 3:40 PM DISTRICT ASSOCIATE JUDGE Acute cystitis without hematuria URINE CULTURE Routine 06/29/2024 3:17 PM DISTRICT ASSOCIATE JUDGE Acute cystitis without hematuria from Last 3 [...] evident. CALVARIUM: Unremarkable. ORBITS: No acute abnormality. Andreafski ocular lenses replaced bilaterally. PARANASAL SINUSES AND [...] Brendon Landaverde M.D. KYA: KYA Report ID: [id number] Reading Location: [id number] Procedure Note Brendon Landaverde MD - 08/19/2024 [...] evident. CALVARIUM: Unremarkable. ORBITS: No acute abnormality. Andreafski ocular lenses replaced bilaterally. PARANASAL SINUSES AND [...] Brendon Landaverde M.D. KYA: KYA Report ID: [id number] Reading Location: [place] [address] Jess Mendenhall MD IM MRI PROCEDURES Fi [...] evident. CALVARIUM: Unremarkable. ORBITS: No acute abnormality. Andreafski ocular lenses replaced bilaterally. PARANASAL SINUSES AND [...] Brendon Landaverde M.D. KYA: KYA Report ID: [id number] Reading Location: [place] [address] Procedure Note Brendon Landaverde MD - 08/19/2024 [...] evident. CALVARIUM: Unremarkable. ORBITS: No acute abnormality. Andreafski ocular lenses replaced bilaterally. PARANASAL SINUSES AND [...] Brendon Landaverde M.D. KYA: KYA Report ID: [id number] Reading Location: [id number] Jess Mendenhall MD IM MRI PROCEDURES Fi nal Result * Protein / creatinine ratio, urine, random (08/12/2024 5:13 PM CDT) Protein, ur, quant 33.1 mg/dL Comment: Interpretive Data No reference range established. Current interpretive data was last revised 2018. Testing performed by: [facility], [address] [place], [place] [address] Creatinine Ur 311.9 mg/dL JEWEL RAPP Comment: Interpretive Data No reference range established. Current interpretive data was last revised 2018. Testing performed by: [facility], [address] [place] [address] Protein/creatinin e ratio 106.1 0.0 - 180.0 mg/g CR JEWEL RAPP Comment:Testing performed by : [facility], [address] [place] [address] Urine 08/12/2024 5:13 PM CDT 08/12/2024 5:14 PM CDT Kerrie Lyles MD LAB URINE ORDERABLES Final Result JEWEL [facility] [address] Department [place] [address] * (ABNORMAL) Urinalysis reflex to microscopic and culture Urine, clean voided (08/12/2024 4:30 PM CDT) Color, ur Yellow Yellow Comment:Testing performed by : [facility], [address] [place], [place] [address] Clarity, ur Cloudy(A) Clear JEWEL RAPP Comment:Testing performed by : [facility], [address], [place] [address] Specific gravity, ur 1.025 1.003 - 1.030 JEWEL RAPP Comment:Testing performed by : [facility], [address] [place], [place] [address] pH, urine 5.5 JEWEL RAPP Comment: Interpretive Data U rine pH is affected by diet, medications, systemic acid-base disturbances, and renal tubular function. pH may affect urinary stone formation. For example, urine pH below 6.0 may help reduce the tendency for calcium phosphate stones and pH greater than 6.0 may reduce the tendency for uric acid stone formation. Source: [facility] Current Interpretive Data was last revised on 2017 Testing performed by: [facility], [address], [place] [address] Protein, ur ql 1+(A) Negative CERNER BJWCH Comment:Testing performed by : [facility], [address], [place] [address] Glucose, ur ql Negative Negative CERNER BJWCH Comment:Testing performed by : [facility], [address], [place] [address] Ketones, ur Negative Negative CERNER BJWCH Comment:Testing performed by : [facility], [address], [place] [address] Bilirubin, ur Negative Negative CERNER BJWCH Comment:Testing performed by : [facility], [address], [place] [address] Blood, ur Negative Negative CERNER BJWCH Comment:Testing performed by : [facility], [address], [place] [address] Urobilinogen, ur 2.0(A) <2.0 mg/dL CERNER BJWCH Comment:Testing performed by : [facility], [address], [place] [address] Nitrite, ur Negative Negative CERNER BJWCH Comment:Testing performed by : [facility], [address], [place] [address] Leukocyte esterase, ur Negative Negative CERNER BJWCH Comment:Testing performed by : [facility], [address], [place] [address] UA reflex comment Reflex to microscopic UA will be performed. CERNER BJWCH Comment:Testing performed by : [facility], [address], [place] [address] Urine, clean voided 08/12/2024 4:30 PM CDT 08/12/2024 5:14 PM CDT us Kerrie Lyles MD LAB MICROBIOLOGY - GENERAL ORDERABLES Final Result JEWEL RAPP [address] Department of Laboratories [place], [place] [id number] * (ABNORMAL) Urinalysis, microscopic only (08/12/2024 4:30 PM CDT) WBC, ur 0-5 0 - 5 /HPF Comment:Testing performed by : [facility], [address], [place] [address] RBC, ur 0-2 0 - 2 /HPF CERNER BJWCH Comment:Testing performed by : [facility], [address], [place] [address] Epithelial cells, squamous, ur 1-5 0 - 5 /HPF CERNER BJWCH Comment:Testing performed by : [facility], [address], [place] [address] Mucous, ur Present(A) CERNER BJW Comment:Testing performed by : [facility], [address], [place] [address] Calcium oxalate crystals, ur 4+(A) CERNER BJWCH Comment:Testing performed by : [facility], [address], [place] [address] Hyaline casts, ur >50(A) 0 - 10 /LPF CERNER BJWCH Comment:Testing performed by : [facility], [address], [place] [address] Culture Reflex Comment Reflex conditions for urine culture (WBC >10) not met. BRENDONNER BJWCH Comment:Testing performed by : [facility], [address], [place] [address] Urine, clean voided 08/12/2024 4:30 PM CDT 08/12/2024 5:14 PM CDT us Kerrie Lyles MD LAB URINE ORDERABLES Final Result JEWEL [facility] [address] [place] [address] * Anti-double stranded DNA abs (08/12/2024 3:55 PM CDT) Pathologist [facility] dsDNA Ab 2.0 <=4.0 IUnits/mL Comment: Interpretive Data Negative: < or = 4 IUnits/mL Indeterminate: 5 - 9 IUnits/mL Positive: > or = 10 IUnits/mL Current interpretive data was last revised on 2016. Testing performed by: [facility], [address] [place]., [address] Blood 08/12/2024 3:55 PM CDT 08/12/2024 6:28 PM CDT Kerrie Lyles MD LAB BLOOD ORDERABLES Final Result JEWEL [facility] [address] [facility] [place] [address] * eGFR (08/12/2024 3:55 PM CDT) Pathologist [facility] eGFR 67 >=60 mL/min/1. 73 m2 Comment: [...] was last reviewed 2021. Testing performed by: [facility], [address] [place] [address] Blood 08/12/2024 3:55 PM CDT 08/12/2024 4:31 PM CDT Kerrie Lyles MD LAB BLOOD ORDERABLES Final Result JEWEL [facility] [address] [place] [address] * C4 complement (08/12/2024 3:55 PM CDT) Complement C4 19 10 - 40 mg/dL Comment:Testing performed by : [facility], [address] [place] [address], [place]., [address] Blood 08/12/2024 3:55 PM CDT 08/12/2024 7:28 PM CDT Kerrie Lyles MD LAB BLOOD ORDERABLES Final Result Performing Organization Address City/[facility]/ZIP Co de Phone Number J[facility] [address] [place] [address] * Erythrocyte sedimentation rate (08/12/2024 3:55 PM CDT) Erythrocyte sedimentation rate 13 1 - 30 mm/hr Comment:Testing performed by : [facility], [address] [facility] [place] [address] Blood 08/12/2024 3:55 PM CDT 08/12/2024 4:31 PM CDT Kerrie Lyles MD LAB BLOOD ORDERABLES Final Result [facility] [address] [place] [address] * C3 complement (08/12/2024 3:55 PM CDT) Complement C3 128 90 - 180 mg/dL Comment:Testing performed by : [facility], [address] [facility], [place]., [address] Blood 08/12/2024 3:55 PM CDT 08/12/2024 7:28 PM CDT Kerrie Lyles MD LAB BLOOD ORDERABLES Final Result Performing Organization Address City/[facility] Co de Phone Number JEWEL [facility] [address] [place] [address] * CRP (acute phase) (08/12/2024 3:55 PM CDT) Pathologist [facility] CRP <3.0 <=10.0 mg/L Comment:Testing performed by : [facility], [address] [place] [address] Blood 08/12/2024 3:55 PM CDT 08/12/2024 4:31 PM CDT us Kerrie Lyles MD LAB BLOOD ORDERABLES Final Result Performing Organization Address City/[facility] Co de Phone Number J[facility]EL [facility] [address] [facility] [place] [address] * Comprehensive metabolic panel (08/12/2024 3:55 PM CDT) Sodium 141 135 - 145 mmol/L Comment:Testing performed by : [facility], [address] [place], [place] [address] Potassium, pl 3.8 3.3 - 4.9 mmol/L CERJOSE BJWCH Comment:Testing performed by : [facility], [address] [place] [address] Chloride 107 97 - 110 mmol/L CERJOSE BJWCH Comment:Testing performed by : [facility], [address] [place] [address] CO2 22 22 - 32 mmol/L CERJOSE BJWCH Comment:Testing performed by : [facility], [address], [place] [address] Anion gap 12 2 - 15 mmol/L CERNER BJWCH Comment:Testing performed by : [facility], [address], [place] [address] BUN 16 6 - 25 mg/dL CERNER BJWCH Comment:Testing performed by : [facility], [address], [place] [address] Creatinine 1.01 0.60 - 1.10 mg/dL CERNER BJWCH Comment:Testing performed by : [facility], [address], [place] [address] Glucose 89 70 - 199 mg/dL CERNER [...] was last revised 2022. Testing performed by: [facility], [address], [place] [address] Calcium 10.0 8.5 - 10.3 mg/dL CERNER BJWCH Comment:Testing performed by : [facility], [address], [place] [address] Bilirubin, total 0.3 0.1 - 1.2 mg/dL CERNER BJWCH Comment:Testing performed by : [facility], [address], [place] [address] Protein, pl 7.7 6.5 - 8.5 g/dL CERNER BJWCH Comment:Testing performed by : [facility], [address], [place] [address] Albumin 4.6 3.5 - 5.0 g/dL CERNER BJWCH Comment:Testing performed by : [facility], [address], [place] [address] Alk phos 86 40 - 130 Units/L [facility]EL [facility] Comment:Testing performed by : [facility], [address], [place], [place] [address] ALT 15 7 - 45 Units/L [facility]EL [facility] Comment:Testing performed by : [facility], [address], [place] [address] AST 19 10 - 45 Units/L [facility] Comment:Testing performed by : [facility], [address], [place] [address] Blood 08/12/2024 3:55 PM CDT 08/12/2024 4:31 PM CDT Kerrie Lyles MD LAB BLOOD ORDERABLES Final Result JEWEL [facility] [address] Department [place] [address] * (ABNORMAL) POCT urinalysis dipstick (06/29/2024 3:40 PM DISTRICT ASSOCIATE JUDGE) Color, Urine, POC Yellow Clarity, ur, POC Clear Clear Glucose, ur, POC Negative Negative MG/DL Bilirubin, ur, POC Negative Negative, Small, Moderate, Large Ketones, ur, POC Negative Negative Specific Brady, POC 1.015 1.003 - 1.030 Blood, ur, POC Negative Negative pH, ur, POC 6.0 5.0 - 8.0 Protein, ur, POC Negative Negative Urobilinogen, urine, POC 0.2 0.2 - 1.0 mg/dL Nitrite, ur, POC Positive(A) Negative Leukocytes, ur, POC Negative Negative Lot Number [id number] Urine 06/29/2024 3:40 PM DISTRICT ASSOCIATE JUDGE us Lissette Mendoza NP POINT OF CARE TEST ORDERABLES Final Result * Urine culture Urine, clean voided (06/29/2024 3:17 PM DISTRICT ASSOCIATE JUDGE) Report Final Report: Less than 100,000 colonies/mL (clinically insignificant growth based on current clinical standards) Comment:Testing performed by : [facility], [address] [place]., [address] Organism (CLINICALLY INSIGNIFICANT GROWTH JEWEL AKERS Urine, clean voided 06/29/2024 3:17 PM DISTRICT ASSOCIATE JUDGE 06/30/2024 12:36 AM DISTRICT ASSOCIATE JUDGE Narrative JEWEL AKERS - 07/01/2024 7:52 AM DISTRICT ASSOCIATE JUDGE Testing performed by [facility] Microbiology Laboratory ([phone]) us Lissette Mendoza NP LAB MICROBIOLOGY - GENERAL ORD ERABLES Final Result JEWEL AKERS [address] Department [place] [address] from Last 3 Months Insurance MEDICARE MEDICARE NumerousNA OPEN ACCESS MEDICARE Numerous[employer] OPEN ACCESS Care Teams Business Process Specialist Relationship Specialty Start Date End Date Josue Pearl PA [address] [place] [address] PCP - General Internal Medicine 04/24/24 Reji Torres MD [address] [place] [address] Consulting Physician Rheumatology 05/18/21 Janiya Valencia MD [address] [place] [address] Consulting Physician Neurology 04/09/23
--- OUTSIDE RECORDS SUMMARY | 2024-09-16 14:15 | XMS_ITS | Continuity of Care Document ---
Author Organization [facility] Address [address] [place] [address] Phone Care Team Providers Care Tools Developer Name Role Phone Fabio BOSE, Bhavin Unavailable [...] Providers Copied on Encounter OFFICE/OUTPA TIENT VISIT, [facility], [address], [place], [place], [id number], [place] tel:[phone] [facility] [[email or web address] At [place] abdominal pain (chief complaint) Abdominal Pain [address] [place], [address]. tel:[phone] OFFICE/OUTPA TIENT VISIT, [facility], [address], [place], [place], [id number], [place] tel:[phone] [facility] vomiting (chief complaint) Abdominal painPelvic pain in female [address] [place], [address]. tel:[phone] [facility], [address] [facility] [address], [place], [place], [id number], [place] tel:[phone] Noteworthy Legacy Data Unspecified reason for consultationAcu te upper respiratory infections of unspecified siteAcute upper respiratory infections of unspecified siteUrinary tract infection, site not specifiedOther psychological or physical stress, not elsewhere classified No Information Family History Family Member Type Diagnosis Age At Onset No Information Payers Payer name Insurance type Covered republican ID Authoriza tion(s) No Information Social History [...]
--- OUTSIDE RECORDS SUMMARY | 2024-09-16 14:15 | XMS_ITS | Clinical Summary ---
Author Organization [facility] Address [address] [place] [address] Care Team Providers Care Boarding House Manager Name Role Phone Suzanne Marques MD Primary Care Provider [phone] Source Comments [facility],non-[facility] Affiliates and Associated Physician Practices is amultiple site organization consisting of ambulatory clinics and hospital sitesin [place], [place], [place] and [place]. This disclosure is being madepursuant to the Care Everywhere program and may not contain all information available regarding this patient. Last updated 18.[facility] Allergies Active Allergy Reactions Criticality Noted Date [...] SCALP 4 Active Vitamin D, Ergocalciferol , 63235 units CAPS 1 (one) capsule Acti ve [...] 36.6 C (97.9 F) 07/21/2013 1:47 PM SENIOR CYBER INTELLIGENCE ANALYST Respiratory Rate 16 07/21/2013 1:47 PM SENIOR CYBER INTELLIGENCE ANALYST Oxygen Saturation 98% 09/25/2023 1:11 PM CDT [...] PANEL (CALCIUM TOTAL) STAT 07/21/2013 2:20 PM SENIOR CYBER INTELLIGENCE ANALYST from Last 3 Months or Most Recently Relevant to Health Maintenance Results * (ABNORMAL) BASIC METABOLIC PANEL (CALCIUM TOTAL) (07/21/2013 2:20 PM SENIOR CYBER INTELLIGENCE ANALYST) BUN 7 7 - 26 mg/dL [facility] Creatinine 0.7 0.6 - 1.2 mg/dL [facility] eGFR by MDRD > 60 ML/MIN [facility] Comment: Chronic kidney disease: <60 ml/min Kidney failure: <15 ml/min Based on BSA of 1.73m2. Sodium 142 136 - 145 mmol/L [facility] Potassium 3.4(L) 3.5 - 4.5 mmol/L [facility] Chloride 108(H) 98 - 107 mmol/L [facility] CO2 20(L) 22 - 29 mmol/L [facility] Glucose 97 70 - 115 mg/dL [facility] Calcium 9.8 8.4 - 10.2 mg/dL [facility] Anion Gap 17 8 - 18 [facility] BUN/Creatinine Ratio 10 7 - 23 [facility] Osmolality Calculation 276 270 - 300 mOsm/kg [facility] Blood specimen (specimen) 07/21/2013 2:20 PM SENIOR CYBER INTELLIGENCE ANALYST 07/21/2013 2:23 PM SENIOR CYBER INTELLIGENCE ANALYST Narrative [facility] - 07/21/2013 2:48 PM SENIOR CYBER INTELLIGENCE ANALYST IS PATIENT ON HEPARIN? (Y OR N) N Carter Lizama DO LAB - CHEMISTRY ORDERABLES F inal Result [address] [phone] from Last 3 Months or Most Recently Relevant to Health Maintenance Insurance MEDICARE [facility] MEDICARE MEDICARE [facility] MEDICARE [facility] MEDICARE MEDICARE Member Subscriber Plan / Payer (Ef fective for All Dates) Name:Pretty Thompson Ruel Member ID:Not on file Relation to Subscriber:Self Name:Pretty Thompson Subscriber ID:Not on file Payer ID:Not on file Group ID:Not on file Type:Medicare Address: [place] [id number] MEDICARE Member Subscriber Plan / Payer (Ef fective for All Dates) Name:Dylan Thompsonannita Castillo Member ID:Not on file Relation to Subscriber:Self Name:Pretty Thompson Subscriber ID:Not on file Payer ID:Not on file Group ID:Not on file Type:Medicare Address: [place] [phone] Advance Directives * FULL RESUSCITATION (Latest Code Status on File) Date Activated Date Inactivated Comments 09/02/2012 6:55 PM 09/04/2012 3:19 PM Care Teams Boarding House Manager Relationship Specialty Start Date End Date Suzanne Marques MD [facility] [place] [address] PCP - General Family Medicine 09/02/12
[2024-09-16] MEDS: HYDROmorphone HCL INJ (*CRX) 2 MG/ML VIAL 1 MG IV PUSH (14:18)
[2024-09-16 14:58] VITALS: BP 98/64; PULSE 59; RESP 20; O2SAT 97
[2024-09-16 16:13] VITALS: BP 90/60; PULSE 57; RESP 16; O2SAT 100
== END 2024-09-16 16:17 | disposition home or self-care (01) ==
PROVIDERS: Emergency Provider Emergency Medicine; PCP Family Medicine
DX: R10.9 Unspecified abdominal pain (principal); E78.5 Hyperlipidemia, unspecified; E06.3 Autoimmune thyroiditis; M06.9 Rheumatoid arthritis, unspecified; M79.7 Fibromyalgia; M32.9 Systemic lupus erythematosus, unspecified; Z86.711 Personal history of pulmonary embolism; Z90.49 Acquired absence of other specified parts of digestive tract; Z90.710 Acquired absence of both cervix and uterus; Z90.79 Acquired absence of other genital organ(s); Z90.722 Acquired absence of ovaries, bilateral; Z79.899 Other long term (current) drug therapy
CPT/HCPCS: 36415; 74177; 80053; 81003; 83605; 83690; 83735; 85025; 96361; 96374; 96375; 99284; J1171; J2270; J2405; J7030; Q9967